=== PATIENT | female | born 1985 | race Caucasian/White ===

== ENCOUNTER → 2023-03-20 | Emergency (ER) | payer OTHER ==
[~2023-03-20] MED LIST: ACETAMINOPHEN 500 MG TAB ONE; NA CHLORIDE 0.9% 1,000 ML ONE; ONDANSETRON 4 MG/2 ML VIAL ONE
[2023-03-20 07:23] LABS: Urine Bacteria <20 /HPF (<20); Urine Bilirubin NEGATIVE (Negative); Urine Blood Trace (Negative); Urine Clarity Turbid (Clear); Urine Color Light-Yellow (Yellow); Urine Glucose NEGATIVE (Negative); Urine Mucus Slight /HPF (None Seen); Urine Protein TRACE (Negative); Urine Urobilinogen Normal (Normal)
[2023-03-20 07:40] LABS: Absolute Lymphocytes (CBC) 0.8 K/uL (0.7-4.9); Hematocrit 35.7 % (36.0-45.0); Lymphocytes % 9.9 % (15.3-44.8); MCV 90.5 fL (80-100); MPV 8.6 fL (7.6-11.3); Platelets 176 thou/uL (152-406); RBC Red Blood Cell Count 3.95 M/uL (3.86-4.86)
[2023-03-20 07:47] LABS: SARS-CoV-2 Antigen Rapid Res Negative (Negative)
[2023-03-20 07:51] LABS: Protime INR 1.16
[2023-03-20 08:01] LABS: Albumin 3.5 g/dL (3.4-5.0); Bilirubin Total 0.3 mg/dL (0.2-1.0); Potassium 3.5 mEq/L (3.5-5.1); Protein, Total 7.8 g/dL (6.4-8.2)
--- NOTE | 2023-03-20 08:37 | RAD REPORT ---
EXAM DESCRIPTION: CTAbdomen Pelvis W Contrast - 03/20/2023 8:28 am CLINICAL HISTORY: Abdominal pain. ABD PAIN COMPARISON: No comparisons TECHNIQUE: Biphasic CT imaging of the abdomen and pelvis was performed with 100 ml non-ionic IV cont rast. All CT scans are performed using dose optimization technique as appropriate and may include automated exposure control or mA/KV adjustment according to patient size. FINDINGS: The lung bases are clear. The liver, spleen, pancreas, adrenal glands and kidneys are within normal limits. No bowel obstruction, free air, free fluid or abscess. The appendix is normal. No evidence of signi ficant lymphadenopathy. 3 cm left ovarian follicle. No suspicious bony findings. IMPRESSION: No acute intra-abdominal or pelvic finding.
[2023-03-20 08:39] LABS: C.diff Antigen/Toxin Ag neg : Tox neg (NEG : NEG)
--- NOTE | 2023-03-20 08:44 | RAD REPORT ---
EXAM DESCRIPTION: RAD - Chest Single View - 03/20/2023 8:35 am CLINICAL HISTORY: FEVER Chest pain. COMPARISON: No comparisons FINDINGS: Portable technique limits examination quality. The lungs are grossly clear. The heart is normal in size. No displaced fractures. IMPRESSION: No acute intrathoracic process suspected.
--- NOTE | 2023-03-20 09:13 | EDPHYS ---
Physician Documentation [facility] Name: Adeel Marshall Age: 37 yrs Sex: Female : 1985 Arrival Date: 03/20/2023 Time: 06:27 Bed 6 Private MD: ED Physician Angelo Bear HPI: 03/20 07:03 This 37 yrs old Female presents to ER via EMS with complaints of Nausea, vomiting, rt diarrhea, fever. 07:03 Patient with HIV on monotherapy antivirals as well as Bactrim presents to the ED with rt nausea, vomiting, diarrhea starting at 515. It is nonbloody, nonbilious, denies any abdominal pain. She did have a fever up to 101, denies other acute complaints, symptoms are moderate severity, no other aggravating alleviating factors. 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 - Social history:: Smoking status: Patient reports the use of cigarette tobacco products, 1-2 cigarettes a day, Reported history of juuling and/or vaping. - Family history:: not pertinent. ROS: 07:03 Cardiovascular: Negative for chest pain, palpitations, and edema, Respiratory: Negative rt for shortness of breath, cough, wheezing, and pleuritic chest pain, MS/Extremity: Negative for injury and deformity, Skin: Negative for injury, rash, and discoloration, Neuro: Negative for headache, weakness, numbness, tingling, and seizure, Psych: Negative for depression, anxiety, suicide ideation, homicidal ideation, and hallucinations, 07:03 Constitutional: Positive for fever, Negative for malaise, 07:03 Abdomen/GI: Positive for nausea, vomiting, and diarrhea, Negative for abdominal pain, Exam: 07:03 Constitutional: This is a well developed, well nourished patient who is awake, alert, rt and in no acute distress. Head/Face: Normocephalic, atraumatic. Chest/axilla: Normal chest wall appearance and motion. Nontender with no deformity. No lesions are appreciated. Cardiovascular: Regular rate and rhythm with a normal S1 and S2. No gallops, murmurs, or rubs. Normal PMI, no JVD. No pulse deficits. Respiratory: Lungs have equal breath sounds bilaterally, clear to auscultation and percussion. No rales, rhonchi or wheezes noted. No increased work of breathing, no retractions or nasal flaring. Abdomen/GI: Soft, non-tender, with normal bowel sounds. No distension or tympany. No guarding or rebound. No evidence of tenderness throughout. Skin: Warm, dry with normal turgor. Normal color with no rashes, no lesions, and no evidence of cellulitis. MS/ Extremity: Pulses equal, no cyanosis. Neurovascular intact. Full, normal range of motion. Neuro: Awake and alert, GCS 15, oriented to person, place, time, and situation. Cranial nerves II-XII grossly intact. Motor strength 5/5 in all extremities. Sensory grossly intact. Cerebellar exam normal. Normal gait. Psych: Awake, alert, with orientation to person, place and time. Behavior, mood, and affect are within normal limits. Vital Signs: 06:36 BP 138 / 92; Pulse 105; Resp 16; Temp 100.5(O); Pulse Ox 100% on R/A; Weight 61.23 kg km8 (R); Height 5 ft. 5 in. (R); Pain 8/10; 08:52 Pulse 94; ec2 09:15 Pulse 96; Resp 18; Pulse Ox 100% ; ap3 06:36 Body Mass Index 22.46 (61.23 kg, 165.1 cm) 8 06:36 Pain Scale: Adult km8 Sree Coma Score: 06:47 Eye Response: spontaneous(4). Motor Response: obeys commands(6). Verbal Response: km8 oriented(5). Total: 15. MDM: 06:39 Patient medically screened. rt 07:29 ED course: Patient with HIV arrives today for gastroenteritis symptoms, septic workup ec2 ordered, plan is to follow-up lab tests, reassess the patient. Possible admit versus discharge per signout, currently favoring viral process however will reconsider pending workup.. 07:29 ED course: Patient meets SIRS criteria with a fever and tachycardia noted. Urine is ec2 pertinent for WBCs and some leuk esterase noted however patient with no marked urinary complaints, will defer antibiotic therapy as I do not find this to be the source of her complaint today.. 07:40 Data reviewed: vital signs. ED course: EKG independently reviewed and interpreted by ec2 me, shows normal sinus rhythm, rate of 100, no acute ST segment elevations, nonconcerning intervals.. 07:48 ED course: CBC is reassuring, lactic within normal ranges.. ec2 08:53 ED course: Chest x-ray shows no acute intrathoracic process. C. difficile screen ec2 negative, no leukocytes noted on fecal leukocyte stain. CT of the abdomen pelvis shows no acute process. CBC is unremarkable. Metabolic profile is reassuring. . 09:12 ED course: On reassessment patient with improving vital signs, patient is tolerating ec2 water without issue. Will discharge home with prescription for antiemetic, suspect viral infection causing her symptoms. Return precautions given. 03/20 06:47 Order name: Blood Culture Adult (2) rt 03/20 06:47 Order name: CBC with Diff; Complete Time: 07:47 rt 03/20 06:47 Order name: CMP; Complete Time: 08:26 rt 03/20 06:47 Order name: Lactate w/ 2H reflex if indic.; Complete Time: 07:47 rt 03/20 06:47 Order name: Protime (+inr); Complete Time: 07:57 rt 03/20 06:47 Order name: Ptt, Activated; Complete Time: 07:57 rt 03/20 06:47 Order name: Urinalysis w/ reflexes; Complete Time: 07:28 rt 03/20 06:47 Order name: PREGU; Complete Time: 07:28 rt 03/20 06:47 Order name: CDIFF; Complete Time: 08:51 rt 03/20 06:47 Order name: Fecal Leukocyte Stain; Complete Time: 08:51 rt 03/20 06:47 Order name: Ova And Parasites rt 03/20 06:47 Order name: Rotavirus Antigen; Complete Time: 07:57 rt 03/20 06:47 Order name: Stool Culture rt 03/20 06:47 Order name: Influenza Screen (a \T\ B); Complete Time: 07:57 rt 03/20 06:47 Order name: SARS RAPID; Complete Time: 07:57 rt 03/20 07:28 Order name: Urine Culture EDMS 03/20 06:47 Order name: Chest Single View XRAY; Complete Time: 08:51 rt 03/20 07:47 Order name: CT Abd/Pelvis - IV Contrast Only; Complete Time: 08:51 ec2 03/20 06:47 Order name: EKG; Complete Time: 06:48 rt 03/20 06:47 Order name: Accucheck; Complete Time: 09:16 rt 03/20 06:47 Order name: Cardiac monitoring; Complete Time: 06:49 rt 03/20 06:47 Order name: EKG - Nurse/Tech; Complete Time: 07:48 rt 03/20 06:47 Order name: IV Saline Lock - Large Bore; Complete Time: 07:22 rt 03/20 06:47 Order name: Labs collected and sent; Complete Time: 07:22 rt 03/20 06:47 Order name: O2 Per Protocol; Complete Time: 06:48 rt 03/20 06:47 Order name: O2 Sat Monitoring; Complete Time: 06:48 rt 03/20 06:47 Order name: Vital Signs; Complete Time: 07:22 rt Administered Medications: 07:49 Drug: Acetaminophen PO 1000 mg PO once Route: PO; ap3 09:31 Follow up: Response: No adverse reaction ap3 07:49 Drug: NS 0.9% IV 1000 ml IV at 1 bolus Per protocol; 1000 mL bolus Route: IV; Rate: 1 ap3 bolus; Site: right antecubital; 09:31 Follow up: IV Status: Completed infusion; IV Intake: 1000ml ap3 07:58 Drug: Ondansetron IVP 4 mg IVP once; over 2 minutes Route: IVP; Site: right antecubital;ap3 09:30 Follow up: Response: No adverse reaction; Nausea is decreased ap3 Disposition Summary: 03/20/23 09:13 Discharge Ordered Notes: Location: Home ec2 Condition: Stable ec2 Diagnosis - Viral infection, unspecified ec2 Followup: ec2 - With: Private Physician - When: - Reason: Re-evaluation by your physician Discharge Instructions: - Discharge Summary Sheet ec2 - Viral Illness, Adult ec2 Forms: - Medication Reconciliation Form ec2 - Thank You Letter ec2 - Antibiotic Education ec2 - Prescription Opioid Use ec2 - Patient Portal Instructions ec2 - Leadership Thank You Letter ec2 Prescriptions: - Compazine 10 mg Oral Tablet - take 1 tablet ORAL route every 8 hours As needed; 20 tablet; Refills: 0, ec2 Product Selection Permitted Signatures: Dispatcher [employer] January Whitmore RN RN ap3 Nazario Kerns MD MD rt Angelo Bear MD MD ec2 Pooja Astudillo RN RN km8 Corrections: (The following items were deleted from the chart) 06:42 06:38 Allergies: Bactrim; km8 km8
--- NOTE | 2023-03-20 09:13 | ER ---
Nurse's Notes [facility] Name: Adeel Marshall Age: 37 yrs Sex: Female : 1985 Arrival Date: 03/20/2023 Time: 06:27 Bed 6 Private MD: Diagnosis: Viral infection, unspecified Presentation: 03/20 06:36 Chief complaint: Patient states: woke up at 0500 with vomiting, diarrhea, and fever; pt km8 has hx of HIV and PTSD. Coronavirus screen: Client denies travel out of the [place] in the last 14 days. Ebola Screen: No symptoms or risks identified at this time. Initial Sepsis Screen: Does the patient meet any 2 criteria? HR > 90 bpm. No. Patient's initial sepsis screen is negative. Does the patient have a suspected source of infection? No. Patient's initial sepsis screen is negative. Risk Assessment: Do you want to hurt yourself or someone else? Patient reports no desire to harm self or others. Onset of symptoms was March 20, 2023 at 05:00. 06:36 Method Of Arrival: EMS km8 06:36 Acuity: MISHA 3 km8 Triage Assessment: 06:38 General: Appears in no apparent distress. comfortable, Behavior is calm, cooperative, km8 appropriate for age. Pain: Complains of pain in generalized Pain currently is 8 out of 10 on a pain scale. EENT: No signs and/or symptoms were reported regarding the EENT system. Neuro: Level of Consciousness is awake, alert, obeys commands, Oriented to person, place, time, situation. Cardiovascular: Capillary refill < 3 seconds Patient's skin is warm and dry. Respiratory: Airway is patent Respiratory effort is even, unlabored, Respiratory pattern is regular, symmetrical. GI: Reports diarrhea, nausea, vomiting. : No signs and/or symptoms were reported regarding the genitourinary system. Derm: No signs and/or symptoms reported regarding the dermatologic system. Skin is intact, is healthy with good turgor, Skin is dry, Skin is pink, warm \T\ dry. normal, Skin temperature is warm. Musculoskeletal: No signs and/or symptoms reported regarding the musculoskeletal system. Range of motion: intact in all extremities. 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 - Social history:: Smoking status: Patient reports the use of cigarette tobacco products, 1-2 cigarettes a day, Reported history of juuling and/or vaping. - Family history:: not pertinent. Screenin:47 [facility] ED Fall Risk Assessment (Adult) History of falling in the last 3 months, km8 including since admission No falls in past 3 months (0 pts) Confusion or Disorientation No (0 pts) Intoxicated or Sedated No (0 pts) Impaired Gait No (0 pts) Mobility Assist Device Used No (0 pt) Altered Elimination No (0 pt) Score/Fall Risk Level 0 - 2 = Low Risk Oriented to surroundings, Maintained a safe environment, Educated pt \T\ family on fall prevention, incl call for assistance when getting out of bed, Assessed \T\ reinforced patient's understanding of fall precautions. Abuse screen: Denies threats or abuse. Denies injuries from another. Nutritional screening: No deficits noted. Tuberculosis screening: No symptoms or risk factors identified. Assessment: 06:47 General: see triage notes/ assessment. km8 07:54 General: Appears in no apparent distress. Behavior is calm, cooperative, appropriate ap3 for age. Neuro: Level of Consciousness is awake, alert, obeys commands, Oriented to person, place, time, situation. Cardiovascular: Patient's skin is warm and dry. Respiratory: Airway is patent Respiratory effort is even, unlabored, Respiratory pattern is regular, symmetrical. 07:54 GI: Reports nausea. ap3 07:55 Reassessment: received VO from provider for 4mg Zofran IV due to patient reporting ap3 nausea . 09:16 Reassessment: Patient states feeling better. Patient states symptoms have improved. ap3 09:38 Reassessment: patient awaiting transportation prior to departure. ap3 Vital Signs: 06:36 BP 138 / 92; Pulse 105; Resp 16; Temp 100.5(O); Pulse Ox 100% on R/A; Weight 61.23 kg km8 (R); Height 5 ft. 5 in. (R); Pain 8/10; 08:52 Pulse 94; ec2 09:15 Pulse 96; Resp 18; Pulse Ox 100% ; ap3 06:36 Body Mass Index 22.46 (61.23 kg, 165.1 cm) km8 06:36 Pain Scale: Adult km8 [place] Coma Score: 06:47 Eye Response: spontaneous(4). Motor Response: obeys commands(6). Verbal Response: km8 oriented(5). Total: 15. ED Course: 06:28 Patient arrived in ED. km8 06:38 Triage completed. km8 06:38 Arm band placed on right wrist. km8 06:39 Nazario Kerns MD is Attending Physician. rt 06:47 Patient has correct armband on for positive identification. Bed in low position. Call km8 light in reach. Side rails up X 1. cardiac monitor technician on. Pulse ox on. NIBP on. Door closed. Noise minimized. Lights dimmed. 06:47 No provider procedures requiring assistance completed. Patient maintains SpO2 km8 saturation greater than 95% on room air. 07:00 Inserted saline lock: 20 gauge in right antecubital area, using aseptic technique. km8 Blood collected. 07:11 Attending Physician role handed off by Nazario Kerns MD ec2 07:11 Angelo Bear MD is Attending Physician. ec2 07:48 EKG done, by ED staff, reviewed by Angelo Bear MD. em1 08:29 CT Abd/Pelvis - IV Contrast Only In Process Unspecified. EDMS 08:37 Chest Single View XRAY In Process Unspecified. EDMS 08:43 Santa Colunga, RN is Primary Nurse. ph 09:31 Provided Education on: discharge instructions. ap3 09:31 IV discontinued, intact, bleeding controlled, No redness/swelling at site. Pressure ap3 dressing applied. Administered Medications: 07:49 Drug: Acetaminophen PO 1000 mg PO once Route: PO; ap3 09:31 Follow up: Response: No adverse reaction ap3 07:49 Drug: NS 0.9% IV 1000 ml IV at 1 bolus Per protocol; 1000 mL bolus Route: IV; Rate: 1 ap3 bolus; Site: right antecubital; 09:31 Follow up: IV Status: Completed infusion; IV Intake: 1000ml ap3 07:58 Drug: Ondansetron IVP 4 mg IVP once; over 2 minutes Route: IVP; Site: right antecubital;ap3 09:30 Follow up: Response: No adverse reaction; Nausea is decreased ap3 Medication: 06:47 VIS not applicable for this client. km8 Intake: 09:31 IV: 1000ml; Total: 1000ml. ap3 Outcome: 09:13 Discharge ordered by MD. ec2 09:30 Discharged to home ambulatory, ap3 09:30 Condition: good 09:30 Discharge instructions given to patient, Instructed on discharge instructions, follow up and referral plans. medication usage, Demonstrated understanding of instructions, follow-up care, medications, Prescriptions given X 1, 09:55 Patient left the ED. ph Signatures: Dispatcher [employer] Ken Covarrubias em1 Santa Colunga RN RN January Montoya RN RN ap3 Nazario Kerns MD MD rt Angelo Bear MD MD ec2 Pooja Astudillo RN RN km8 Corrections: (The following items were deleted from the chart) 06:42 06:38 Allergies: Bactrim; km8 km8
[2023-03-20 11:19] VITALS: BP 138/92; TEMP 100.5; O2SAT 100
--- NOTE | 2023-03-22 12:27 | EKG ---
Test Date: 2023-03-20 Test Time: 07:34:41 Network Technical Analyst: ANNA MEASUREMENT RESULTS: Intervals: Rate: 100 IL: 114 QRSD: 64 QT: 348 QTc: 448 [place]: P: 79 [place]: 114 QRS: 55 T: 51 INTERPRETIVE STATEMENTS: Normal sinus rhythm Nonspecific T wave abnormality Abnormal ECG No previous ECG available for comparison Electronically Signed On 03-22-23 12:20:57 ADMINISTRATION PROFESSIONAL by Anthony Romero
== END ==
LOC: ER 06:27
DX: B34.9 Viral infection, unspecified (principal); Z21 Asymptomatic human immunodeficiency virus [HIV] infection status; Z11.52 Encounter for screening for COVID-19; Z72.0 Tobacco use
CPT/HCPCS: 96361; 93005; 87040 ×2; 87088; 87045; 85025; 81001; 87086; 36415; 89055; 87177; 81025; 85610; 87046; 83605; 85730; 87209; 87077 ×2; 87186 ×2; 87324; 80053; 87425; 87804 ×2; 74177; 71045; 96374; 99285; 87811; Q9967; J2405; J7030

== ENCOUNTER → 2023-03-26 | Emergency (ER) | payer OTHER ==
[~2023-03-26] MED LIST changes: -ACETAMINOPHEN 500 MG TAB ONE
--- OUTSIDE RECORDS SUMMARY | 2023-03-26 00:12 | XMS REPORT | Continuity of Care Document ---
Author Name Unknown Address [address] [facility] [address] [place] [address] [facility] thconnect Address [address] [facility]. [address] [place] [address] Support Name Relationship Address Phone Lata Kenny Sibling Unknown [phone] [address] [place] [address] NO, OTHER SA [address] [place] [address] RUTH JALLOH [address] [facility] [place] [address] Unavailable P [address] [facility] [address] [place] [address] [phone] Healthcare Proxy, PLEASE STO P UPDATING!!! O PLEASE DO NOT MODIFY PLEASE DO NOT MODIFY Billing Purposes, Primary Caregiver, PLEASE STOP UPDATING!!! O PLEASE DO NOT MODIFY PLEASE DO NOT MODIFY Billing Purposes, Marcial Sampson Unknown Unavailable Adeel Del Toro D O [address] [place] [address] Unavailable Legal Guardian, None O [address] [facility] [address] [place] [phone] Lata Del Toro O [address] [place] [address] Unavailable Responsible Provider, Not Ye t Assigned O Unknown Unavailable Marcial Sequeira V [address] [place] [address] [phone] Alysia Nicholson V [address] [place] [id number] [phone] none3 O Unknown Unavailable None2 O Unknown Unavailable None1 O Unknown Unavailable (Legal Guardian), Shama O [address] [place] [address] Unavailable Joel Barnes V [address] [place] [address], [place] [address] [phone] Legal Guardian, PLEASE STOP UPDATING!!!! O PLEASE DO NOT MODIFY PLEASE DO NOT MODIFY Billing Purposes, Emergency Contact O PLEASE DO NOT MODIFY PLEASE DO NOT MODIFY Billing Purposes, Unavailable Care Team Providers Care Frame Stripper Name Role Phone [email or web address] Attending Clinician Unavailable [email or web address] Attending Clinician Unavailable Margareth Martinez Attending Clinician UnaHermes Guy Attending Clinician UnavailJoel Mckinely Attending Clinician [phone] Tacho Shay Attending Clinician Unavailable Alysia Nicholson Attending Clinician [phone] Wes Lino Attending Clinician Unavailable Tia Reeves Attending Clinician [phone] Dat Trujillo MD Attending Clinician Karol Baer LCSW Attending Clinician Arlene Thompson Attending Clinician Unavailable Bruce Barnes Attending Clinician Unavailable Pati Sapp Attending Clinician Unavailjosh Cazares MedAdherenceLuba Attending Clinician U farrukh Paredes MedAdherence,, Ella Attending Clinician Un available Jennifer HOUSE, Janett Vance Attending Clinician Unavailab Juma STARKS, Felisa Batista Attending Clinician + Yifan Bess MD Attending Clinician Karol Baer Attending Clinician [phone] Dori Thomas Attending Clinician UnavailDomo Stanton Attending Clinician Unavailable Madelyn Joseph Attending Clinician UnavailJohn Meier Attending Clinician Unavailable Jennifer Portillo Attending Clinician Unavailable Maximus Mai Attending Clinicia n Unavailable Karen Smith Attending Clinician Unavailable Desktop, [facility] [facility] Attending Clinician Enrike Rabago Attending Clinician [phone] Ed Resendez Attending Clinician [phone] Provider, [facility] Attending Maurizio Calixto Attending Clinician Unavailable Kvng Nichole Attending Clinician Unavailable Dat Whitfield Attending Clinician [phone] Mai Hurst Attending Clinician Unavailable Parvin Dutta Attending Clinician [phone] Dia Jackson Attending Clinician UnavailConnie Welch Attending Clinician Unavailab Bridget Hernandez Attending Clinician [phone] Lynne Boogie Attending Clinician Unavailable Lisa Esparza Attending Clinician Unavailable Rosaline Valencia Attending Clinician [phone] Ilana Pisano Attending Clinician Unavaila Wes Garcia Attending Clinician Unavailable Margo Bolanos Attending Clinician Unavailab Any Black Attending Clinician Unavailable Jenifer Morrison Attending Clinician Unavailable Jihan Vargas Attending Clinician Unavailabl Shantal Anne Attending Clinician Unavailable Marcial Sequeira Attending Clinician [phone] Álvaro Cruz Attending Clinician Unavailable Rebecca Anglin Attending Clinician Unavailable Ronda Vivar Attending Clinician Unavailable Paulie Burroughs Attending Clinician Unavailable Ana Romero Attending Clinician Unavailable Danette Giordano Attending Clinician Unavailab Sophie Allen Attending Clinician Unavailabl e Physician, No Primary or Family Admitting Clinic [place] Unavailable Margareth Martinez Admitting Clinician Unav ailable Alysia Nicholson MD Unavailable Dat Trujillo MD Unavailable [phone] Marcial Christie Unavailable [phone] Sophie Villa MA Unavailable Unavailable Payers Payer Name Policy Type Policy Number Effective Date Expira tion Date Source Nazario White 0- 100% P [id number] 2022 1 00:00:00 2022 00:00:00 Nazario White 0- 100% S [id number] 2022 1 00:00:00 2023 00:00:00 Nazario White 0- 100% O [id number] Nazario White 0- 100% P [id number] 2022 6 00:00:00 [facility] [id number] 2008 00:00:00 [facility] [id number] 2019 00:00:00 Nazario White 0- 100% 11 [id number] 1 00:00:00 2019 00:00:00 [facility] Nazario White 0- 100% CI [id number] 00:00:00 2019 00:00:00 [facility] Problems Condition Name Condition Details Condition Category Status Onset Date Resolution Date Last Treatment Date Treating Clinician Comments Source Proteinuri a Condition Active 2020-03 00:00: 00 2021-02-13 11:03:52 [facility] Prediabete s Condition Active 2020-03 00:00: 00 2021-02-13 11:03:52 Alys[facility] Nicholson [facility] Seborrheic dermatitis Condition Active 2020-03 00:00: 00 2021-02-13 11:00:19 Dat Trujillo [facility] Oral pharyngeal candidiasi s Condition Active 2020-03 00:00: 00 2021-02-13 11:00:19 Dat Trujillo [facility] Anemia Condition Active 2018-03 00:00: 00 2021-02-13 11:00:20 [facility] Nicholson [facility] BMI 22.0-22.9 Condition Active 2018-03 00:00: 00 2021-02-13 11:00:20 [facility]lys[facility] Nicholson [facility] Elevation of levels of liver transamina se levels Condition Active 2018-03 00:00: 00 2021-02-13 11:00:20 Dat Trujillo [facility] Anxiety Condition Active 2018-03 00:00: 00 2021-02-13 11:00:20 [facility] Nicholson [facility] PTSD Condition Active 2018-03 00:00: 00 2021-02-13 11:00:20 [facility] Nicholson [facility] Molluscum contagiosu m Condition Active 2018-03 00:00: 00 2021-02-13 11:00:20 Alysia Nicholson [facility] Health care maintenanc e Condition Active 2018-03 00:00: 00 2021-02-13 11:00:20 [facility] Nicholson [facility] Trichomoni asis Condition Active 07-07 00:00: 00 2021-02-13 11:00:20 Marcial Sequeira [facility] Underweigh t Condition Active 12-02 00:00: 00 2021-02-13 11:00:20 Marcial Sequeira [facility] HIV infection Condition Active 11-17 00:00: 00 2021-02-13 11:00:19 Sophie Villa [facility] No known active problems No known active problems Disease [facility] History of Past Illness Condition Name Condition Details Condition Category Status Onset Date Resolution Date Last Treatment Date Treating Clinician Comments Source Screening for tuberculos is Condition Inactiv e 2020-03 00:00: 00 2021-02-13 00:00:00 2021-02-13 11:03:52 Alysia Nicholson [facility] Std screening Condition Inactiv e 2020-03 00:00: 00 2021-02-13 00:00:00 2021-02-13 11:03:52 Alysia Nicholson [facility] AIDS Condition Inactiv e 12-02 00:00: 00 2019-01-19 00:00:00 2019-01-19 14:14:11 Alysia Nicholson [facility] Immunizati on update Condition Inactiv e 12-02 00:00: 00 2019-01-19 00:00:00 2019-01-19 14:14:11 Alysia Nicholson [facility] Pre-proced ural laboratory examinatio n Condition Inactiv e 11-17 00:00: 00 2019-01-19 00:00:00 2019-01-19 14:14:11 Alysia Nicholson [facility] Allergies, Adverse Reactions, Alerts Allergy Name Allergy Type Status Severity Reaction(s) Onset Date Inactive Date Treating Clinician Comments Source No Known Allergie s DA Active U 2022-03- 00:00: 00 [facility] No Known Allergie s DA Active U 2-14 00:00: 00 [facility] No Known Allergie s DA Active U 2-14 00:00: 00 [facility] No Known Allergie s DA Active U 10-25 00:00: 00 [facility] No Known Allergie s DA Active U 10-25 00:00: 00 [facility] NO KNOWN ALLERGIE S Drug Class Active [facility] Social History Social Habit Start Date Stop Date Quantity Comments Source Exposure to SARS-CoV-2 (event) Not sure [facility] History of tobacco use Cigarette Smoker [facility] History SDOH Alcohol Binge [facility] drug use 2022-05-05 14:10:04 2022-05-05 14:10:04 Previously [facility] alcohol use 2022-05-05 14:10:04 2022-05-05 14:10:04 Currently [facility] PHQ2 Questionairre Score 2022-05-05 14:10:04 2022-05-05 14:10:04 [facility] is there any chance that you could be ? 2022-05-05 14:10:04 2022-05-05 14:10:04 No [facility] social history reviewed E&M 2022-05-05 14:10:04 2022-05-05 14:10:04 reviewed today [facility] social history E&M 2022-05-05 14:10:04 2022-05-05 14:10:04 Single. Spouse/Partner/Sig nificant Other: [facility] Lynnette Matthew/Maria Del Carmen Ruelas/Leia Sequeira/Jenifer Somers'Maxx/Daron Barnes. Entire family in [place]. Currently single. Two children in high school (17, 16), live with their dad. Not homeless. Born in [facility]. City: [place]. State: [place]. Lives alone in apartmentNot employed. Unemployed. Highest education level: some college. Receives compensation from . Completed some collegeSex at : Female. Sexual orientation: Heterosexual. Gender identity: Female. Gender of partner(s): Male. Age of first sexual intercourse: 19. Sexually Active: No. [facility] if the patient is using/has used a vaping item, Current, Former, Never Used, Not asked 2022-05-05 14:10:04 2022-05-05 14:10:04 No [facility] Transportation Insecurity (In the past year, have you or someone you in your household had to go without) 2022-05-04 13:31:16 2022-05-04 13:31:16 Yes [facility] Rent/Mortgage Payment Insecurity (In the past year, have you or someone you in your household had to go without) 2022-05-04 13:31:16 2022-05-04 13:31:16 [id number] [facility] time of call 2021-07-15 11:31:18 2021-07-15 11:31:18 07/15/2021 11:34 AM [facility] passive cigarette smoke exposure 2021-02-13 10:29:27 2021-02-13 10:29:27 No [facility] sexual orientation 2021-02-13 10:29:27 2021-02-13 10:29:27 Heterosexual [facility] tobacco use (cigarettes, cigar, chew, pipe) 2021-02-13 10:29:27 2021-02-13 10:29:27 Currently [facility] drug use, illicit, drug of choice 2021-02-13 10:29:27 2021-02-13 10:29:27 cocaine [facility] family support 2021-02-10 10:34:08 2021-02-10 10:34:08 Entire family in [place]. Currently single. Two children in high school (17, 16), live with their dad. [facility] home/family situation, assessment 2021-02-10 10:34:08 2021-02-10 10:34:08 Lives alone in apartment [facility] albumin, serum 2021-01-06 14:03:00 2021-01-06 14:03:00 3.7 g/dL [facility] Cigarettes smoked current (pack per day) - Reported 2019-01-04 00:00:00 2019-01-04 00:00:00 [facility] Alcohol intake 2019-01-04 00:00:00 2019-01-04 00:00:00 [facility] History SDOH Alcohol Frequency 2019-01-04 00:00:00 2019-01-04 00:00:00 2 [facility] History SDOH Alcohol Std Drinks 2019-01-04 00:00:00 2019-01-04 00:00:00 1 [facility] Occupation #1 2017-12-02 15:30:48 2017-12-02 15:30:48 Unemployed [facility] alcohol use, frequency 2017-12-02 15:30:48 2017-12-02 15:30:48 holidays/special occasions only [facility] sex at 2017-12-02 15:30:48 2017-12-02 15:30:48 F [facility] patient considered to be homeless 2017-12-02 15:30:48 2017-12-02 15:30:48 [id number] [facility] Smoking Status Start Date Stop Date Source Ex-smoker (finding) 2022-05-05 14:10:04 14:10:04 [facility] Occasional tobacco smoker (finding) 2021-02-13 10:29:27 [facility] Never smoked tobacco (finding) [facility] Medications Ordered Medication Name Filled Medication Name Start Date Stop Date Current Medication? 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 1 Take 1 tablet by mouth once a day [facility] (NYSTATIN) 788469 UNIT/ML SUSP 2020-03 00:00: 00 Yes Dat Trujillo MD 5 Take 5 ml by mouth four times a day swish and swallow qid [facility] (KETOCONAZO LE) 2 % CREA 2020-03 00:00: 00 Yes Dat Trujillo MD 1 Apply 1 a small amount to affected area twice a day [facility] iohexol (OMNIPAQUE 350 BULK-100 mL) injection 100 mL 09-20 14:15: 00 09-20 13:54 :00 No 100mL 100 mL, Intravenou s, ONCE, 1 dose, Marely 09/21/19 at 0915, Routine [facility] azithromyci n (ZITHROMAX) tablet 1,000 mg 09-20 13:00: 00 09-20 12:00 :00 No 1000mg 1,000 mg, Oral, ONCE, 1 dose, Marely 09/21/19 at 0800, EMILEE
Re ason for Anti-Infec tive: Documented Infection< br>Documen ally Infection Site: Abdominal< br>Duratio n of Therapy: 7 days [facility] cefTRIAXone (ROCEPHIN) 1,000 mg in NaCl 0.9% (NS) 50 mL MINI-BAG 09-20 13:00: 00 09-20 12:57 :00 No 1000mg 1,000 mg, IV Piggyback, ONCE, 1 dose, Marely 09/21/19 at 0800, 50 mL
Reas on for Anti-Infec tive: Documented Infection< br>Documen ally Infection Site: Abdominal< br>Duratio n of Therapy: 7 days [facility] NaCl 0.9% (NS) bolus infusion 1,000 mL 09-20 11:45: 00 09-20 11:59 :00 No 1000mL at 999 mL/hr, 1,000 mL, IV Infusion, ONCE, 1 dose, Marely 09/21/19 at 0645, STAT [facility] acetaminoph en (TYLENOL) tablet 1,000 mg 09-20 11:30: 00 09-20 10:51 :00 No 1000mg 1,000 mg, Oral, ONCE, 1 dose, Marely 09/21/19 at 0630, EMILEE [facility] cefpodoxime 100 mg tablet 09-20 00:00: 00 Yes [id number] 100mg Take 1 tablet by mouth 2 (two) times daily. [facility] cefpodoxime 100 mg tablet 09-20 00:00: 00 Yes [id number] 100mg Take 1 tablet by mouth 2 (two) times daily. [facility] cefpodoxime 100 mg tablet 09-20 00:00: 00 Yes [id number] 100mg Take 1 tablet by mouth 2 (two) times daily. [facility] cefpodoxime 100 mg tablet 09-20 00:00: 09-20 00:00 :00 No [id number] 100mg Take 1 tablet by mouth 2 (two) times daily for 10 days. [facility] cefpodoxime 100 mg tablet 09-20 00:00: 09-20 00:00 :00 No [id number] 100mg Take 1 tablet by mouth 2 (two) times daily. 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 1{Table t} 1xD Take 1 tablet by mouth once a day [facility] predniSONE 20 mg tablet 07-11 00:00: 00 Yes [id number] Take 2 tablets (40 mg) daily for next 5 days [facility] predniSONE 20 mg tablet 07-11 00:00: 00 Yes [id number] Take 2 tablets (40 mg) daily for next 5 days [facility] predniSONE 20 mg tablet 07-11 00:00: 00 Yes [id number] Take 2 tablets (40 mg) daily for next 5 days [facility] BACTRIM DS (SULFAMETHO XAZOLE-TRIM ETHOPRIM) 800-160 MG TABS 12-02 00:00: 00 01-19 00:00 :00 No 1 tab by mouth once dialy [facility] (AZITHROMYC IN) 600 MG TABS 12-02 00:00: 00 01-19 00:00 :00 No 2 tabs by mouth once per week [facility] BIKTARVY (BICTEGRAVI R-EMTRICITA B-TENOFOV) 50-200-25 MG TABS 9-20 00:00: 00 01-19 00:00 :00 No Take 1 tab by mouth daily [facility] ondansetron (ZOFRAN ODT) 4 mg disintegrat ing tablet 08-25 00:00: 00 Yes 4mg Take 1 tablet by mouth every 8 (eight) hours as needed for Nausea and Vomiting (N/V). [facility] dicyclomine (BENTYL) 20 mg tablet 08-25 00:00: 00 Yes 20mg Take 1 tablet by mouth 4 (four) times daily. [facility] ondansetron (ZOFRAN ODT) 4 mg disintegrat ing tablet 08-25 00:00: 00 Yes 4mg Take 1 tablet by mouth every 8 (eight) hours as needed for Nausea and Vomiting (N/V). [facility] dicyclomine (BENTYL) 20 mg tablet 08-25 00:00: 00 Yes 20mg Take 1 tablet by mouth 4 (four) times daily. [facility] ondansetron (ZOFRAN ODT) 4 mg disintegrat ing tablet 08-25 00:00: 00 Yes 4mg Take 1 tablet by mouth every 8 (eight) hours as needed for Nausea and Vomiting (N/V). [facility] dicyclomine (BENTYL) 20 mg tablet 08-25 00:00: 00 Yes 20mg Take 1 tablet by mouth 4 (four) times daily. [facility] (HALOPERIDO L) 5 MG TABS 03-15 00:00: 00 Yes 1 Take 1 tablet by mouth twice a day [facility] (BENZTROPIN E MESYLATE) 1 MG TABS 03-15 00:00: 00 Yes 1 Take 1 tablet by mouth twice a day [facility] Vital Signs Vital Name Observation Time Observation Value Comments S sadaf Systolic blood pressure 2019-09-21 13:00:00 121 mm[Hg] [facility] Diastolic blood pressure 2019-09-21 13:00:00 72 mm[Hg] [facility] Heart rate 2019-09-21 13:00:00 87 /min [facility] Respiratory rate 2019-09-21 13:00:00 16 /min [facility] Oxygen saturation in Arterial blood by Pulse oximetry 2019-09-21 13:00:00 100 /min [facility] Body temperature 2019-09-21 12:28:00 37.72 Maria R [facility] Body weight 2019-09-21 10:24:00 61.199 kg [facility] BMI 2019-09-21 10:24:00 23.90 kg/m2 [facility] Systolic blood pressure 2019-09-21 13:00:00 121 mm[Hg] [facility] Diastolic blood pressure 2019-09-21 13:00:00 72 mm[Hg] [facility] Heart rate 2019-09-21 13:00:00 87 /min [facility] Respiratory rate 2019-09-21 13:00:00 16 /min [facility] Oxygen saturation in Arterial blood by Pulse oximetry 2019-09-21 13:00:00 100 /min [facility] Body temperature 2019-09-21 12:28:00 37.72 Maria R [facility] Body weight 2019-09-21 10:24:00 61.199 kg [facility] BMI 2019-09-21 10:24:00 23.90 kg/m2 [facility] Diastolic blood pressure 2022-05-05 14:10:04 80 mm[Hg] [facility] Systolic blood pressure 2022-05-05 14:10:04 113 mm[Hg] [facility] pulse rate 2022-05-05 14:10:04 85 /min [facility] temperature site 2022-05-05 14:10:04 oral [facility] temperature E&M 2022-05-05 14:10:04 98.7 [degF] [facility] BMI (body mass index) percentile 2022-05-05 14:10:04 n/a [facility] Body Mass Index (Ratio) 2022-05-05 14:10:04 257.65 kg/m2 [facility] weight E&M 2022-05-05 14:10:04 1449.25 [lb_av] [facility] weight in kilograms E&M 2022-05-05 14:10:04 658[facility] height in centimeters E&M 2022-05-05 14:10:04 160.02 cm [facility] oxygen saturation, oximetry 2021-02-13 10:29:27 98 /min [facility] blood pressure, diastolic 2021-02-13 10:29:27 77 mm[Hg] [facility] blood pressure, systolic 2021-02-13 10:29:27 110 mm[Hg] [facility] pulse rate 2021-02-13 10:29:27 79 /min [facility] 2021-02-13 10:29:27 oral [facility] temperature E&M 2021-02-13 10:29:27 98.1 [degF] [facility] weight E&M 2021-02-13 10:29:27 108 [lb_av] [facility] weight in kilograms E&M 2021-02-13 10:29:27 49.09 [facility] height in centimeters E&M 2021-02-13 10:29:27 160.02 cm [facility] 2021-02-13 10:29:27 [facility] BMI (body mass index) percentile 2021-02-13 10:29:27 n/a [facility] Body Mass Index (Ratio) 2021-02-13 10:29:27 19.20 kg/m2 [facility] height in centimeters E&M 2021-01-06 12:56:39 160.02 cm [facility] BMI (body mass index) percentile 2021-01-06 12:56:39 n/a [facility] Body Mass Index (Ratio) 2021-01-06 12:56:39 18.76 kg/m2 [facility] blood pressure, diastolic 2021-01-06 12:56:39 69 mm[Hg] [facility] blood pressure, systolic 2021-01-06 12:56:39 104 mm[Hg] [facility] respiratory rate E&M 2021-01-06 12:56:39 12 /min [facility] temperature E&M 2021-01-06 12:56:39 98.0 [degF] [facility] pulse rate 2021-01-06 12:56:39 94 /min [facility] oxygen saturation, oximetry 2021-01-06 12:56:39 96 /min [facility] weight E&M 2021-01-06 12:56:39 105.50 [lb_av] [facility] weight in kilograms E&M 2021-01-06 12:56:39 47.95 kg [facility] oxygen saturation, oximetry 2019-02-07 10:42:04 99 /min [facility] blood pressure, diastolic 2019-02-07 10:42:04 74 mm[Hg] [facility] blood pressure, systolic 2019-02-07 10:42:04 109 mm[Hg] [facility] respiratory rate E&M 2019-02-07 10:42:04 18 /min [facility] pulse rate 2019-02-07 10:42:04 81 /min [facility] temperature E&M 2019-02-07 10:42:04 97.7 [degF] [facility] weight E&M 2019-02-07 10:42:04 127.13 [lb_av] L [facility] weight in kilograms E&M 2019-02-07 10:42:04 57.79 kg [facility] height in centimeters E&M 2019-02-07 10:42:04 160.02 cm [facility] Body Mass Index (Ratio) 2019-02-07 10:42:04 22.60 kg/m2 [facility] BMI (body mass index) percentile 2019-02-07 10:42:04 n/a [facility] temperature site 2019-02-07 10:42:04 oral [facility] temperature site 2019-02-07 10:42:04 oral [facility] oxygen saturation, oximetry 2019-01-19 13:34:44 98 /min [facility], diastolic 2019-01-19 13:34:44 67 mm[Hg] [facility] blood pressure, systolic 2019-01-19 13:34:44 108 mm[Hg] [facility] respiratory rate E&M 2019-01-19 13:34:44 14 /min [facility] pulse rate 2019-01-19 13:34:44 98 /min [facility] E&M 2019-01-19 13:34:44 97.7 [degF] [facility] weight E&M 2019-01-19 13:34:44 121 [lb_av] [facility] weight in kilograms E&M 2019-01-19 13:34:44 [facility] height in centimeters E&M 2019-01-19 13:34:44 160.02 [facility] BMI (body mass index) percentile 2019-01-19 13:34:44 n/a [facility] Body Mass Index (Ratio) 2019-01-19 13:34:44 21.51 kg[facility]m2 [facility] 2019-01-19 13:34:44 oral [facility] temperature site 2019-01-19 13:34:44 oral [facility] oxygen saturation, oximetry 2017-12-16 12:33:44 98 /min [facility] blood pressure, diastolic 2017-12-16 12:33:44 71 mm[Hg] [facility], systolic 2017-12-16 12:33:44 103 mm[Hg] [facility] respiratory rate E&M 2017-12-16 12:33:44 14 /min [facility] pulse rate 2017-12-16 12:33:44 63 /min [facility] temperature E&M 2017-12-16 12:33:44 97.7 [degF] [facility] 2017-12-16 12:33:44 118 [lb_av] [facility] weight in kilograms E&M 2017-12-16 12:33:44 53.64 [facility] height in centimeters E&M 2017-12-16 12:33:44 160.02 cm [facility] Body Mass Index (Ratio) 2017-12-16 12:33:44 20.98 kg/m2 [facility] temperature site 2017-12-16 12:33:44 [facility] 2017-12-16 12:33:44 oral [facility] height in centimeters E&M 2017-12-02 15:30:48 160.02 cm [facility] oxygen saturation, oximetry 2017-12-02 15:30:48 95 /min [facility] blood pressure, diastolic 2017-12-02 15:30:48 72 mm[Hg] [facility] blood pressure, systolic 2017-12-02 15:30:48 111 mm[Hg] [facility] respiratory rate E&M 2017-12-02 15:30:48 12 /min [facility] pulse rate 2017-12-02 15:30:48 105 /min [facility] E&M 2017-12-02 15:30:48 100.2 [degF] [facility] weight E&M 2017-12-02 15:30:48 112 [lb_av] [facility] weight in kilograms E&M 2017-12-02 15:30:48 50.91 kg [facility] Body Mass Index (Ratio) 2017-12-02 15:30:48 19.91 kg/m2 [facility] 2017-12-02 15:30:48 oral [facility] site 2017-12-02 15:30:48 oral [facility] Procedures Procedure Date / Time Performed Performing Clinician Source Outreach - Phone contact with (or on behalf of) Client 2022-05-07 16:19:02 Domo Barros [facility] Outreach - Client Specific Case Conference 2022-05-07 16:19:02 Domo Barros [facility] Primary Care SLW Meeting W Other CM 2022-05-07 10:48:03 Bridget Jaquez [facility] Outreach - Client Specific Case Conference 2022-05-06 13:30:44 Domo Barros [facility] RW Case Management 2022-05-05 15:09:17 Joel Barnes [facility] Education/Supportive Counseling 2021-07-16 16:17:39 Maurizio Abdul [facility] Outreach - Client Specific Case Conference 2021-02-24 15:35:42 KalyandustinDomo mosqueda [facility] Primary Care Service Linkage 2021-02-19 14:39:12 Bridget Jaquez [facility] Health Education/Supportive Counseling 2021-02-17 19:31:25 Maurizio Abdul [facility] Prescription Assistance (HIV - URGENT) 2021-02-13 11:03:13 Alysia Nicholson Replaced by [facility] Assessment - Patient Account Specialist 2021-02-10 11:13:38 [facility] Psych[facility] 30 ([phone] min - [phone] (with patient and/or family member) 2021-02-10 11:13:38 [facility] Primary Care SLW Meeting W Other CM 2021-01-16 12:41:00 Gisele [facility] Primary Care Service Linkage 2021-01-16 [facility] with [facility] M[facility] 2021-01-16 12:30:34 Lyric Thomas [facility] Primary Care - Service Planning Comprehensive 2021-01-16 10:47:22 Dori Thomas [facility] Primary Care - Assesment-Comprehensive [facility] 2021-01-16 10:47:22 Dori Thomas [facility] Primary Care Medical Case Management 2021-01-16 10:47:22 Dori Thomas [facility] Outreach - Phone contact with (or on behalf of) Client 2021-01-10 13:39:28 Tacho Shay [facility] Outreach - Client Specific Case Conference 2021-01-10 13:06:31 Tacho Shay [facility] Prescription Assistance (HIV - URGENT) 2021-01-08 16:00:30 Dat Trujillo [facility] Education/Supportive Counseling 2021-01-08 15:31:04 Maurizio Abdul [facility] Integrated Behavioral Health Assessment (IBH) 2021-01-07 11:58:41 Ronnie [facility] Vision 2021-01-06 15:59:59 RonnieDat [facility] Venipuncture 2021-01-06 13:24:21 Ronnie [facility] Education/Supportive Counseling 2021-01-03 11:41:54 Maurizio Abdul [facility] [id number] 2020-04-28 00:00:00 CIEEV [facility] [id number] 2020-04-28 00:00:00 CIEEV [facility] [id number] 2020-04-28 00:00:00 CIEEV [facility] [id number] 2020-04-28 00:00:00 CIEEV [facility] [id number] 2020-04-28 00:00:[address] [facility] [address] ABDOMEN PELVIS W CONTRAST 2019-09-21 14:01:34 Yifan Bess [facility] POCT TEST 2019-09-21 11:15:00 Yifan Bess [facility] COMP. METABOLIC PANEL (17795) 2019-09-21 11:01:00 Yifan Bess [facility] CBC WITH DIFFERENTIAL 2019-09-21 11:01:00 Yifan Bess [facility] URINALYSIS 2019-09-21 11:01:00 Yifan Bess [facility] LACTIC ACID WHOLE BLOOD 2019-09-21 11:01:00 Dex Bess [facility] COVID-19 (ID NOW RAPID TESTING) 2019-09-21 11:01:00 Yifan Bess [facility] Primary Care Medical Case Management 2019-06-21 07:53:56 Jennifer Portillo [facility] Care Medical Case Management 2019-06-20 11:01:26 Dori Thomas [facility] Outreach - Client Specific Case Conference 2019-06-20 10:47:57 Domo Barros [facility] Outreach - Client Specific Case Conference 2019-06-16 13:59:47 KalyanannaJayaio Larry [facility] Primary Care Medical Case Management 2019-06-16 10:35:57 Dori Thomas [facility] Primary Care Service Linkage 2019-06-12 14:41:12 Dominguez Jaime, Maximus Wagner [facility] Primary Care Medical Case Management 2019-06-02 11:06:01 Jennifer Portillo [facility] Outreach - Client Specific Case Conference 2019-06-01 14:13:12 FiorellaJayaio Larry [facility] y Health Health Education/Supportive Counseling 2019-02-22 16:00:51 Maurizio Abdul [facility] Prescription Assistance (HIV - URGENT) 2019-02-07 11:16:50 Alysia Nicholson [facility] Primary Care Service Linkage 2019-01-30 14:47:28 Bridget Jaquez [facility] Outreach - Face to Face in Office 2019-01-30 09:39:46 Lynne Boogie [facility] Primary Care - Assesment-Brief - SLW 2019-01-26 14:05:41 Bridget Jaquez [facility] Primary Care Service Linkage 2019-01-26 14:05:22 Bridget Jaquez [facility] Outreach - Client - Specific Supervision 2019-01-25 10:03:21 Lynne Boogie [facility] Outreach - Face to Face in Office 2019-01-25 09:59:39 Lynne Boogie [facility] Outreach - Client Specific Case Conference 2019-01-23 15:43:07 Domo Barros [facility] Outreach - Face to Face in Office 2019-01-23 15:26:22 [facility] Medical Case Management 2019-01-23 15:19:30 Jennifer Portillo [facility] Health Vision 2019-01-19 14:13:05 Alysia Nicholson [facility] Outreach - Phone contact with (or on behalf of) Client 2018-12-12 13:04:00 Lynne Boogie [facility] Outreach - Client - Specific Supervision 2018-12-09 17:58:28 Lynne Boogie [facility] Primary Care Medical Case Management 2018-12-07 17:22:14 Any Henley [facility] Primary [facility] Medical Case Management 2018-09-02 19:14:05 Any Henley [facility] Outreach - Face to Face in Office 2018-09-02 11:33:01 Lynne Boogie [facility] Outreach - Phone contact with (or on behalf of) Client 2018-08-30 11:30:24 Franko Boogiemicaela Juarez [facility] Outreach - Client - Specific Supervision 2018-08-25 09:20:27 [facility] Primary [facility] Medical Case Management 2018-08-22 17:42:11 Any Henley [facility] Outreach - Phone contact with (or on behalf of) Client 2018-08-22 15:00:36 Keagan [facility] Outreach - Client - Specific Supervision 2018-08-10 14:28:16 Keagan Lynne Juarez [facility] Outreach - Client - Specific Supervision 2018-08-03 11:24:44 Keagan [facility] Outreach - Face to Face in the Field 2018-07-27 10:01:03 Keagan Lynne [facility] Medical Case Management 2018-07-19 16:52:52 Any Henley [facility] Outreach - Phone contact with (or on behalf of) Client 2018-07-19 09:26:29 Keagan Lynne [facility] Outreach - Phone contact with (or on behalf of) Client 2018-07-18 10:55:05 Rebecca Anglin [facility] Medical Case Management 2018-07-15 16:21:12 Any Henley [facility] Outreach - Face to Face in Office 2018-07-15 12:49:09 [facility] Outreach - Phone contact with (or on behalf of) Client 2018-07-14 09:55:18 Keagan Lynne [facility] Primary Care Medical Case Management 2018-07-13 17:37:31 Any Henley [facility] Health Education/Supportive Counseling 2018-07-13 11:27:14 Maurizio Abdul [facility] Outreach - Client - Specific Supervision 2018-07-12 11:23:57 KeagnaLynne [facility] Outreach - Face to Face in Office 2018-07-11 11:01:23 KeaganLynne [facility] Health Education/Supportive Counseling 2018-07-06 12:06:14 Maurizio Abdul [facility] Outreach - Client - Specific Supervision 2018-07-04 10:16:23 BoogieLynne [facility] Outreach - Face to Face in the Field 2018-06-27 09:03:19 [facility]Lynne [facility] Outreach - Face to Face in the Field 2018-06-27 08:59:27 KeaganLynne [facility] Primary Care Medical Case Management 2017-12-16 16:26:55 Lory [facility] Primary Care Medical Case Management 2017-12-10 14:07:39 Lory [facility] Primary Care Medical Case Management 2017-12-09 16:32:33 Lory [facility] Primary Care - Service Planning Comprehensive 2017-12-03 13:49:58 Lory [facility] Primary Care - Assesment-Comprehensive CCM-MCM 2017-12-03 13:49:58 Lory [facility] Primary Care Medical Case Management 2017-12-03 13:46:36 Zoraidarosalie [facility] Primary Care Service Linkage 2017-12-03 12:58:09 Bridget Jaquez [facility] Warden 2017-12-02 19:51:51 Matthew Sequeira [facility] Primary Care Medical Case Management 2017-12-02 17:23:58 [facility] Vision 2017-12-02 16:43:31 Marcial Sequeira [facility] Prescription Assistance (HIV - URGENT) 2017-12-02 16:42:09 Marcial Sequeira [facility] Health Education/Supportive Counseling 2017-11-18 09:54:43 Provider, Public Health Services [facility] Venipuncture 2017-11-17 12:37:34 Marcial Sequeira [facility] Encounters Start Date/Time End Date/Time Encounter Type Admission Type Attending Clinicians Care Facility Care Department Encounter ID Source 2022-08-18 14:27:04 Outpatient [email or web address].dcupit [facility] [id number] [facility] 2022-08-07 11:51:02 Outpatient lc.waupit [facility] [id number] [facility] 2022-08-01 13:55:02 Outpatient lc.waupit [facility] [id number] [facility] 2022-07-29 16:47:02 Outpatient lc.waupit [facility] [id number] [facility] 2022-05-27 15:15:05 Outpatient lc.waupit [facility] [id number] [facility] 2022-05-06 15:25:03 Outpatient lc.waupit [facility] [id number] [facility] 2022-05-04 15:59:03 Outpatient lc.waupit [facility] [id number] [facility] 2022-04-30 16:33:02 Outpatient lc.rjoseph [facility] [id number] [facility] 2022-04-02 14:25:04 Outpatient lc.rjoseph [facility] [id number] [facility] 2022-02-04 08:41:04 Outpatient lc.rjoseph [facility] [id number] [facility] 2022-02-03 11:47:03 Outpatient lc.rjoseph [facility] [id number] [facility] 2022-01-09 10:59:04 Outpatient lc.rjoseph [facility] [id number] [facility] 2022-01-08 14:13:03 Outpatient lc.rjoseph [facility] [id number] [facility] 2022-01-02 13:57:05 Outpatient lc.rjoseph [facility] [id number] [facility] 2021-01-10 05:40:42 Emergency [facility] [id number] [facility] 2020-04-28 12:10:00 Inpatient HCACL SYED [id number] [facility] 2023-03-08 13:46:00 2023-03-09 12:47:00 Inpatient Margareth Quiñonez HCAMN TELE [id number] [facility] 2023-03-06 23:57:00 2023-03-06 23:57:00 Outpatient Hermes Lockhart HCACL LABO [id number] [facility] 2022-05-05 00:00:00 2022-05-06 00:00:00 In-person encounter Joel Barnes, Barbra Dyer [facility] Adult Medicine [id number] [facility] [employer] [facility] 2021-02-13 00:00:00 2021-02-13 00:00:00 Office Visit Alysia Nicholson Armando [facility] Encounter/ [id number] [employer] [employer] [facility] 2021-02-13 00:00:00 2021-02-13 00:00:00 In-person encounter Alysia Nicholson Armando Hernandez, Jesus A Cupit, Nadia Bhatt [facility] Adult Medicine [id number] [facility] 2021-02-10 00:00:00 2021-02-10 00:00:00 Office Visit Tia Reeves [facility] Encounter/ [id number] [employer] 2021-02-10 00:00:00 2021-02-10 00:00:00 In-person encounter Tia Reeves [facility] Behavioral Health [id number] [facility] 2021-01-06 00:00:00 2021-01-06 00:00:00 In-person encounter Dat Trujillo, Arlene Barnes, Ilana Almazan Heather Dela Torre, Credeliza [facility] Adult Medicine [id number] [employer] [employer] [facility] 2021-01-06 00:00:00 2021-01-06 00:00:00 Office Visit Dat Trujillo John Callis, Erron [facility] Encounter/ [id number] [facility] 2020-01-03 00:00:00 2020-01-03 00:00:00 Office Visit Pati Sapp [facility] Encounter/ [id number] [facility] 2020-01-02 00:00:00 2020-01-02 00:00:00 Office Visit Pati Sapp [facility] Encounter/ [id number] [facility] 2019-11-13 00:00:00 2019-11-13 00:00:00 Office Visit Alysia Nicholson [facility], Luba [facility] Encounter/ [id number] [facility] 2019-10-11 00:00:00 2019-10-11 00:00:00 Office Visit Alysia Nicholson [facility], Luba Paredes [facility],, Ella [facility] Encounter/ [id number] [facility] 2019-09-25 00:00:00 2019-09-25 00:00:00 [facility] [id number] [facility] 2019-09-25 00:00:00 2019-09-25 00:00:00 Letter (Out) Jennifer [facility] [id number] 2019-09-22 00:00:00 2019-09-22 00:00:00 Telephone Felisa Garcia [facility] [id number] [facility] 2019-09-22 00:00:00 2019-09-22 00:00:00 Telephone Felisa Garcia [facility] [id number] 2019-09-21 05:28:01 2019-09-21 11:38:00 [facility] [id number] [facility] 2019-09-21 05:28:2019-09-21 11:38:00 [facility] [id number] 2019-06-20 00:00:00 2019-06-20 00:00:00 Office Visit Karol Baer [facility] Encounter/ [id number] [facility] 2019-06-20 00:00:00 2019-06-20 00:00:00 Office Visit Dori Thomas [facility] Encounter/ [id number] [facility] 2019-06-20 00:00:00 2019-06-20 00:00:00 Office Visit Domo Barros [facility] Encounter/ [id number] [facility] 2019-06-19 00:00:00 2019-06-19 00:00:00 Office Visit Madelyn Joseph [facility] Encounter/ [id number] [facility] 2019-06-19 00:00:00 2019-06-19 00:00:00 Office Visit John Sandoval [facility] Encounter/ [id number] [facility] 2019-06-16 00:00:00 2019-06-16 00:00:00 Office Visit Domo Barros [facility] Encounter/ [id number] [facility] 2019-06-16 00:00:00 2019-06-16 00:00:00 Office Visit Dori Thomas [facility] Encounter/ [id number] [facility] 2019-06-16 00:00:00 2019-06-16 00:00:00 Office Visit Portillo Jennifer [facility] Encounter/ [id number] [facility] 2019-06-14 00:00:00 2019-06-14 00:00:00 Office Visit Alysia Nicholson [facility] Encounter/ [id number] [facility] 2019-06-14 00:00:00 2019-06-14 00:00:00 Office Visit Alysia Nicholson [facility] Encounter/ [id number] [facility] 2019-05-26 00:00:00 2019-05-26 00:00:00 Office Visit Maximus Mai [facility] Encounter/ [id number] [facility] 2019-05-26 00:00:00 2019-05-26 00:00:00 Office Visit Jennifer Portillo [facility] Encounter/ [id number] [facility] 2019-05-26 00:00:00 2019-05-26 00:00:00 Office Visit Domo Barros [facility] Encounter/ [id number] [facility] 2019-05-26 00:00:00 2019-05-26 00:00:00 Office Visit Domo Barros [facility] Encounter/ [id number] [facility] 2019-03-13 00:00:00 2019-03-13 00:00:00 Office Visit Karen Smith [facility] Encounter/ [id number] [facility] 2019-02-28 00:00:00 2019-02-28 00:00:00 [place] Visit [place] [facility] [place] Abdul Omaida [facility] Encounter/ [id number] [facility] 2019-02-22 00:00:00 2019-02-22 00:00:00 Office Visit Provider, Public Health Services Maurizio [facility] Encounter/ [id number] [facility] 2019-02-15 00:00:00 2019-02-15 00:00:00 Office Visit Kvng Nichole [facility] Encounter/ [id number] [facility] 2019-02-14 00:00:00 2019-02-14 00:00:00 Office Visit Dat Whitfield [facility] Encounter/ [id number] [facility] 2019-02-13 00:00:00 2019-02-13 00:00:00 Office Visit Mai Hurst [facility] Encounter/ [id number] [facility] 2019-02-07 00:00:00 2019-02-07 00:00:00 Office Visit Karen Simth [facility] Encounter/ [id number] [facility] 2019-02-07 00:00:00 2019-02-07 00:00:00 Office Visit Karen Smith [facility] Encounter/ [id number] [facility] 2019-02-07 00:00:00 2019-02-07 00:00:00 Office Visit Alysia Nicholson [facility] Encounter/ [id number] [facility] 2019-02-07 00:00:00 2019-02-07 00:00:00 Office Visit Alysia Nicholson Rolanda McIntyre, Shakira Suazo, Enrike Crouch, Madelyn Campbell [facility] Encounter/ [id number] [facility] 2019-02-07 00:00:00 2019-02-07 00:00:00 In-person encounter Alysia Nicholson Rolanda McIntyre, Shakira Suazo, Morlin Smith, Robert Hernandez Ray, Madelyn Campbell [facility] Adult Medicine [id number] [facility] 2019-02-03 00:00:00 2019-02-03 00:00:00 Office Visit Connie Willingham [facility] Encounter/ [id number] [facility] 2019-01-30 00:00:00 2019-01-30 00:00:00 Office Visit Ike Baerher [facility] Encounter/ [id number] [facility] 2019-01-30 00:00:00 2019-01-30 00:00:00 Office Visit Gisele Bridget [facility] Encounter/ [id number] [facility] 2019-01-24 00:00:00 2019-01-24 00:00:00 Office Visit Ike Baerher [facility] Encounter/ [id number] [facility] 2019-01-24 00:00:00 2019-01-24 00:00:00 Office Visit Lynne Boogie [facility] Encounter/ [id number] [facility] 2019-01-24 00:00:00 2019-01-24 00:00:00 Office Visit Lisa Esparza [facility] Encounter/ [id number] [facility] 2019-01-23 00:00:00 2019-01-23 00:00:00 Office Visit Lynne Boogie [facility] Encounter/ [id number] [facility] 2019-01-23 00:00:00 2019-01-23 00:00:00 Office Visit Domo Barros [facility] Encounter/ [id number] [facility] 2019-01-19 00:00:00 2019-01-23 00:00:00 In-person encounter Alysia Nicholson Tamika Diego-Molin a, Dunia Razo, Armando [facility] Adult Medicine [id number] [facility] 2019-01-20 00:00:00 2019-01-20 00:00:00 Office Visit Lynne Boogie [facility] Encounter/ [id number] [facility] 2019-01-19 00:00:00 2019-01-19 00:00:00 Office Visit Provider, Public Health Services Maurizio Abdul [facility] Encounter/ [id number] [facility] 2019-01-19 00:00:00 2019-01-19 00:00:00 Office Visit Bridget Jaquez [facility] Encounter/ [id number] [facility] 2019-01-19 00:00:00 2019-01-19 00:00:00 Office Visit Bridget Jaquez [facility] Encounter/ [id number] [facility] 2019-01-19 00:00:00 2019-01-19 00:00:00 Office Visit Alysia Nicholson [facility] Encounter/ [id number] [facility] 2019-01-19 00:00:00 2019-01-19 00:00:00 Office Visit Alysia Nicholson [facility] Encounter/ [id number] [facility] 2019-01-19 00:00:00 2019-01-19 00:00:00 Office Visit Lynne Boogie [facility] Encounter/ [id number] [facility] 2019-01-19 00:00:00 2019-01-19 00:00:00 Office Visit Alysia Nicholson [facility] Encounter/ [id number] [facility] 2019-01-19 00:00:00 2019-01-19 00:00:00 Office Visit Alysia Nicholson Tamika Diego-Molin a, Dunia Razo, Armando [facility] Encounter/ [id number] [facility] 2019-01-18 00:00:00 2019-01-18 00:00:00 Office Visit Jennifer Portillo [facility] Encounter/ [id number] [facility] 2018-12-15 00:00:00 2018-12-15 00:00:00 Office Visit Margo Bolanos [facility] Encounter/ [id number] [facility] 2018-12-08 00:00:00 2018-12-08 00:00:00 Office Visit Lynne Boogie [facility] Encounter/ [id number] [facility] 2018-12-08 00:00:2018-12-08 00:00:00 Office Visit Karol Baer [facility] Encounter/ [id number] [facility] 2018-12-06 00:00:00 2018-12-06 00:00:00 Office Visit Boogie, Lynne [facility] Encounter/ [id number] [facility] 2018-12-06 00:00:00 2018-12-06 00:00:00 Office Visit Zoraidanelly Any [facility] Encounter/ [id number] [facility] 2018-09-02 00:00:00 2018-09-02 00:00:00 Office Visit Zoraidanelly Any [facility] Encounter/ [id number] [facility] 2018-08-31 00:00:00 2018-08-31 00:00:00 Office Visit Lynne Boogie [facility] Encounter/ [id number] [facility] 2018-08-30 00:00:00 2018-08-30 00:00:00 Office Visit Lynne Boogie [facility] Encounter/ [id number] [facility] 2018-08-25 00:00:00 2018-08-25 00:00:00 Office Visit [facility] Encounter/ [id number] [facility] 2018-08-25 00:00:00 2018-08-25 00:00:00 Office Visit Lynne Boogie [facility] Encounter/ [id number] [facility] 2018-08-22 00:00:00 2018-08-22 00:00:00 Office Visit ZoraidaAny villegas [facility] Encounter/ [id number] [facility] 2018-08-22 00:00:00 2018-08-22 00:00:00 Office Visit Lynne Boogie [facility] Encounter/ [id number] [facility] 2018-08-01 00:00:00 2018-08-01 00:00:00 Office Visit Lynne Boogie [facility] Encounter/ [id number] [facility] 2018-08-01 00:00:00 2018-08-01 00:00:00 Office Visit Karol Baer Laura [facility] Encounter/ [id number] [facility] 2018-07-25 00:00:00 2018-07-25 00:00:00 Office Visit Lynne Boogie [facility] Encounter/ [id number] [facility] 2018-07-22 00:00:00 2018-07-22 00:00:00 Office Visit Lynne Boogie [facility] Encounter/ [id number] [facility] 2018-07-19 00:00:00 2018-07-19 00:00:00 Office Visit Any Henley [facility] Encounter/ [id number] [facility] 2018-07-19 00:00:00 2018-07-19 00:00:00 Office Visit Lynne Boogie [facility] Encounter/ [id number] [facility] 2018-07-19 00:00:00 2018-07-19 00:00:00 Office Visit Any Henley Nohemi Gutierrez, Jihan Cohen [facility] Encounter/ [id number] [facility] 2018-07-15 00:00:00 2018-07-15 00:00:00 Office Visit Any Henley [facility] Encounter/ [id number] [facility] 2018-07-13 00:00:00 2018-07-13 00:00:00 Office Visit Lynne Boogie [facility] Encounter/ [id number] [facility] 2018-07-13 00:00:00 2018-07-13 00:00:00 Office Visit Any Henley [facility] Encounter/ [id number] [facility] 2018-07-13 00:00:00 2018-07-13 00:00:00 Office Visit Provider, Public Health Services Maurizio Abdul [facility] Encounter/ [id number] [facility] 2018-07-12 00:00:00 2018-07-12 00:00:00 Office Visit Shantal Belcher [facility] Encounter/ [id number] [facility] 2018-07-11 00:00:00 2018-07-11 00:00:00 Office Visit Karol Baer [facility] Encounter/ [id number] [facility] 2018-07-11 00:00:00 2018-07-11 00:00:00 Office Visit Lynne Boogie [facility] Encounter/ [id number] [facility] 2018-07-07 00:00:00 2018-07-07 00:00:00 Office Visit Marcial Sequeira Nohemi [facility] Encounter/ [id number] [facility] 2018-07-07 00:00:00 2018-07-07 00:00:00 Office Visit Lynne Boogie [facility] Encounter/ [id number] [facility] 2018-07-06 00:00:00 2018-07-06 00:00:00 Office Visit Lynne Boogie [facility] Encounter/ [id number] [facility] 2018-07-06 00:00:00 2018-07-06 00:00:00 Office Visit Lynne Boogie [facility] Encounter/ [id number] [facility] 2018-07-06 00:00:00 2018-07-06 00:00:00 Office Visit Provider, Public Health Services Álvaro Cruz [facility] Encounter/ [id number] [facility] 2018-07-06 00:00:00 2018-07-06 00:00:00 Office Visit Provider, Public Health Services Maurizio Abdul [facility] Encounter/ [id number] [facility] 2018-07-05 00:00:00 2018-07-05 00:00:00 Office Visit Marcial Sequeira [facility] Encounter/ [id number] [facility] 2018-07-05 00:00:2018-07-05 00:00:00 Office Visit Marcial Sequeira [facility] Encounter/ [id number] [facility] 2018-07-05 00:00:00 2018-07-05 00:00:00 Office Visit Marcial Sequeira [facility] Encounter/ [id number] [facility] 2018-07-04 00:00:00 2018-07-04 00:00:00 Office Visit Karol Baer [facility] Encounter/ [id number] [facility] 2018-07-04 00:00:00 2018-07-04 00:00:00 Office Visit Lynne Boogie [facility] Encounter/ [id number] [facility] 2018-06-24 00:00:00 2018-06-24 00:00:00 Office Visit Lynne Boogie [facility] Encounter/ [id number] [facility] 2018-06-23 00:00:00 2018-06-23 00:00:00 Office Visit Rebecca Anglin [facility] Encounter/ [id number] [facility] 2018-06-23 00:00:00 2018-06-23 00:00:00 Office Visit Lynne Boogie [facility] Encounter/ [id number] [facility] 2018-04-01 00:00:00 2018-04-01 00:00:00 Office Visit Provider, Public Health Services Maurizio Abdul [facility] Encounter/ [id number] [facility] 2018-03-25 00:00:00 2018-03-25 00:00:00 Office Visit Margo Bolanos [facility] Encounter/ [id number] [facility] 2018-03-25 00:00:00 2018-03-25 00:00:00 Office Visit Marcial Sequeira [facility] Encounter/ [id number] [facility] 2018-02-22 00:00:00 2018-02-22 00:00:00 Office Visit Provider, Public Health Services Maurizio Abdul [facility] Encounter/ [id number] [facility] 2018-02-14 00:00:00 2018-02-14 00:00:00 Office Visit Ronda Vivar [facility] Encounter/ [id number] [facility] 2018-02-11 00:00:00 2018-02-11 00:00:00 Office Visit Paulie Burroughs [facility] Encounter/ [id number] [facility] 2018-02-01 00:00:00 2018-02-01 00:00:00 Office Visit Provider, Public Health Services Maurizio Abdul [facility] Encounter/ [id number] [facility] 2018-01-13 00:00:00 2018-01-13 00:00:00 Office Visit Margo Bolanos [facility] Encounter/ [id number] [facility] 2017-12-16 00:00:00 2017-12-19 00:00:00 In-person encounter Marcial Sequeira Nancy [facility] Adult Medicine [id number] [facility] 2017-12-16 00:00:00 2017-12-16 00:00:00 Office Visit Any Henley [facility] Encounter/ [id number] [facility] 2017-12-16 00:00:00 2017-12-16 00:00:00 Office Visit Marcial Sequeira [facility] Encounter/ [id number] [facility] 2017-12-16 00:00:00 2017-12-16 00:00:00 Office Visit Marcial Sequeira Nancy [facility] Encounter/ [id number] [facility] 2017-12-10 00:00:00 2017-12-10 00:00:[facility] [id number] [facility] 2017-12-10 00:00:00 2017-12-10 00:00:00 Office Visit Margo Bolanos [facility] Encounter/ [id number] [facility] 2017-12-09 00:00:00 2017-12-09 00:00:00 Office Visit Any Henley [facility] Encounter/ [id number] [facility] 2017-12-04 00:00:00 2017-12-04 00:00:00 Office Visit Danette Giordano [facility] Encounter/ [id number] [facility] 2017-12-03 00:00:00 2017-12-03 00:00:00 Office Visit Zoraidajohannerosalie Any [facility] Encounter/ [id number] [facility] 2017-12-03 00:00:00 2017-12-03 00:00:00 Office Visit Marcial Sequeira [facility] Encounter/ [id number] [facility] 2017-12-03 00:00:00 2017-12-03 00:00:00 Office Visit Marcial Sequeira [facility] Encounter/ [id number] [facility] 2017-12-03 00:00:00 2017-12-03 00:00:00 Office Visit Any Henley [facility] Encounter/ [id number] [facility] 2017-12-03 00:00:00 2017-12-03 00:00:00 Office Visit Any Henley [facility] Encounter/ [id number] [facility] 2017-12-03 00:00:00 2017-12-03 00:00:00 Office Visit ZoraidajohanneAny somers [facility] Encounter/ [id number] [facility] 2017-12-03 00:00:00 2017-12-03 00:00:00 Office Visit Jenifer Morrison [facility] Encounter/ [id number] [facility] 2017-12-03 00:00:00 2017-12-03 00:00:00 Office Visit Bridget Jaquez [facility] Encounter/ [id number] [facility] 2017-12-02 00:00:00 2017-12-02 00:00:00 Office Visit Any Henley [facility] Encounter/ [id number] [facility] 2017-12-02 00:00:00 2017-12-02 00:00:00 [facility] [id number] [facility] 2017-12-02 00:00:00 2017-12-02 00:00:00 Office Visit Marcial Sequeira Nohemi Ortega, Rodolfo Diego-Molin a, [facility] [id number] [facility] 2017-12-02 00:00:00 2017-12-02 00:00:00 In-person encounter Marcial Sequeira Nohemi Ortega, Rodolfo Diego-Molin a, Dunia [facility] Adult Medicine [id number] [facility] 2017-11-30 00:00:00 2017-11-30 00:00:00 Office Visit Margo Bolanos [facility] Encounter/ [id number] [facility] 2017-11-25 00:00:00 2017-11-25 00:00:00 Office Visit Marcial Sequeira Donte [facility] Encounter/ [id number] [facility] 2017-11-18 00:00:00 2017-11-18 00:00:00 [facility] [id number] [facility] 2017-11-17 00:00:00 2017-11-17 00:00:00 Office Visit Marcial Sequeira [facility] Encounter/ [id number] [facility] 2017-11-17 00:00:00 2017-11-17 00:00:00 Office Visit Marcial Sequeira [facility] Encounter/ [id number] [facility] 2017-11-17 00:00:00 2017-11-17 00:00:00 Office Visit Provider, Public Health Services Maurizio Abdul [facility] Encounter/ [id number] [facility] 2017-11-17 00:00:00 2017-11-17 00:00:00 Office Visit Provider, Public Health Services Maurizio Abdul [facility] Encounter/ [id number] [facility] 2017-11-17 00:00:00 2017-11-17 00:00:00 Office Visit Marcial Sequeira Priscilla [facility] Encounter/ [id number] [facility] Results Test Description Test Time Test Comments Results Result Co mments Source LACTIC DEHYDROGENASE(LDH)2023-03-10 15:11:00* Test Item Value Reference Range Interpretation Comme nts LACTIC DEHYDROGENASE(LDH) (t est code = LDH) 183 Units/L 81-234 N CD4 HELPER T-CELL [id number] 15:11:00* Test Item Value Reference Range Interpretation Comme nts IMMATURE GRANULOCYTE # (test code = IG#) 0.00 x10E3/uL 0.0-0.1 Performed At : [facility] [address] [id number] David Capellan MD Ph:[phone] WBC (test code = WBCLC) 4.7 x10E3/uL 3.4-10.8 RBC (test code = RBCLC) 4.05 x10E6/uL 3.77-5.28 HGB (test code = HGBLC) 11.8 g/dL 11.1-15.9 HCT (test code = HCTLC) 37.1 % 34.0-46.6 MCV (test code = MCVLC) 92 fL 79-97 MCH (test code = MCHLC) 29.1 pg 26.6-33.0 MCHC (test code = MCHCLC) 31.8 g/dL 31.5-35.7 RDW (test code = RDWLC) 15.4 % 11.7-15.4 PLT (test code = PLTLC) 174 x10E3/uL 150-450 NEUT % (test code = NT%LC) 86 % Not Estab. LYMPH % (test code = LY%LC) 9 % Not Estab. MONO % (test code = MO%LC) 5 % Not Estab. EOS % (test code = EO%LC) 0 % Not Estab. BASO % (test code = BA%LC) 0 % Not Estab. NEUT # (test code = NT#LC) 4.0 x10E3/uL 1.4-7.0 LYMPH # (test code = LY#LC) 0.4 x10E3/uL 0.7-3.1 A MONO # (test code = MO#LC) 0.3 x10E3/uL 0.1-0.9 EOS # (test code = EO#LC) 0.0 x10E3/uL 0.0-0.4 BASO # (test code = BA#LC) 0.0 x10E3/uL 0.0-0.2 PERCENT CD4 HELPER CELLS (test code = CD4P) 3.3 % 30.8-58.5 A ABSOLUTE CD4+ CELLS (test code = CD4A) 13 /uL [phone] A COMMENT(S) (test code = COMM) IMMATURE GRANULOCYTE % (test code = IG%) 0.0 % Not Estab. COMPREHENSIVE METABOLIC [id number] 02:38:00* Test Item Value Reference Range Interpretation Comme nts SODIUM (test code = NA) 137 mmol/l 134.0-147.0 N POTASSIUM (test code = K) 4.3 mmol/L 3.6-5.2 N CHLORIDE (test code = CL) 105 mmol/l 98.0-107.0 N CARBON DIOXIDE (test code = CO2) 22.3 mmol/l 21.0-33.0 N ANION GAP (test code = GAP) 14.0 0-20 N GLUCOSE (test code = GLU) 120 mg/dl 70.0-110.0 H BLOOD UREA NITROGEN (test code = BUN) 14 mg/dl 7.0-18.0 N GLOMERULAR FILTRATION RATE (test code = GFR) 80 mL/min The Glomerular Filtration Rate is a calculated parameterbased on serum Creatinine, patient age and sex. GFR valuesless than 60 mL/min/1.73 square meters are indicative ofChronic Kidney Disease. Values less than 15 mL/min/1.73square meters indicate Kidney failure. The calculation forGFR is based on the CKD-EPI (202) calculation. This formulais race indifferent and is the recommended formula for GFRby the National Kidney Foundation for Adults.The GFR will not calculate if the sex is unknown or if thepatient's age is <18 years. CREATININE (test code = CREAT) 0.94 mg/dL 0.60-1.30 N ESTIMATED CREAT CLEARANCE (test code = ECRCL) 73 mL/min >30 TOTAL PROTEIN (test code = PROT) 7.3 GM/DL 6.0-8.1 N ALBUMIN (test code = ALB) 2.9 gm/dL 3.2-4.7 L CALCIUM (test code = CA) 8.9 mg/dl 8.0-10.5 N BILIRUBIN TOTAL (test code = BILT) 0.1 mg/dl 0.0-1.0 N SGOT/AST (test code = AST) 20 Units/L 15-37 N SGPT/ALT (test code = ALT) 22 Units/L 12.0-78.0 N ALKALINE PHOSPHATASE TOTAL (test code = ALKP) 52 Units/L 50.0-136.0 N CBC W/AUTO [id number] 01:49:00* Test Item Value Reference Range Interpretation Comme nts WHITE BLOOD CELL (test code = WBC) 5.3 K/mm3 4.5-11.0 N RED BLOOD CELL (test code = RBC) 3.67 M/mm3 3.80-5.20 L HEMOGLOBIN (test code = HGB) 10.8 gm/dL 12.0-16.0 L HEMATOCRIT (test code = HCT) 33.6 % 36.0-48.0 L MEAN CELL VOLUME (test code = MCV) 91.6 UM3 82.0-99.0 N MEAN CELL HGB (test code = MCH) 29.4 UUG 25.5-32.5 N MEAN CELL HGB CONCETRATION (test code = MCHC) 32.1 gm/dL 29.0-35.5 N RED CELL DISTRIBUTION WIDTH (test code = RDW) 15.8 % 11.5-15.0 H RED CELL DISTRIBUTION WIDTH SD (test code = RDW-SD) 53.9 fL 34.8-50.2 H PLATELET COUNT (test code = PLT) 177 K/mm3 150-400 N MEAN PLATELET VOLUME (test c ode = MPV) 10.2 fl 7.4-10.4 N NEUTROPHIL % (test code = NT%) 78.5 % 49.0-76.0 H IMMATURE GRANULOCYTE % (test code = IG%) 0.4 % 0.0-0.4 N LYMPHOCYTE % (test code = LY%) 9.6 % 23.0-38.0 L MONOCYTE % (test code = MO%) 11.3 % 1.0-10.0 H EOSINOPHIL % (test code = EO%) 0.0 % 1.0-5.0 L BASOPHIL % (test code = BA%) 0.2 % 0.0-1.0 N NUCLEATED RBC % (test code = NRBC%) 0.0 % 0.0-0.1 N NEUTROPHIL # (test code = NT#) 4.2 K/mm3 2.4-6.3 N IMMATURE GRANULOCYTE # (test code = IG#) 0.02 x10 3/uL 0.00-0.07 N LYMPHOCYTE # (test code = LY#) 0.5 K/mm3 1.2-4.0 L MONOCYTE # (test code = MO#) 0.6 K/mm3 0.0-0.6 N EOSINOPHIL # (test code = EO#) 0.0 K/MM3 0.0-0.7 N BASOPHIL # (test code = BA#) 0.0 K/mm3 0.0-0.2 N NUCLEATED RBC # (test code = NRBC#) 0.00 X10 3uL 0.00-0.01 N CBC W/AUTO [id number] 04:20:00* Test Item Value Reference Range Interpretation Comme nts WHITE BLOOD CELL (test code = WBC) 4.4 K/mm3 4.5-11.0 L RED BLOOD CELL (test code = RBC) 3.65 M/mm3 3.80-5.20 L HEMOGLOBIN (test code = HGB) 10.7 gm/dL 12.0-16.0 L HEMATOCRIT (test code = HCT) 32.9 % 36.0-48.0 L MEAN CELL VOLUME (test code = MCV) 90.1 UM3 82.0-99.0 N MEAN CELL HGB (test code = MCH) 29.3 UUG 25.5-32.5 N MEAN CELL HGB CONCETRATION (test code = MCHC) 32.5 gm/dL 29.0-35.5 N RED CELL DISTRIBUTION WIDTH (test code = RDW) 15.7 % 11.5-15.0 H RED CELL DISTRIBUTION WIDTH SD (test code = RDW-SD) 51.9 fL 34.8-50.2 H PLATELET COUNT (test code = PLT) 157 K/mm3 150-400 N MEAN PLATELET VOLUME (test c ode = MPV) 11.1 fl 7.4-10.4 H NEUTROPHIL % (test code = NT%) 90.3 % 49.0-76.0 H IMMATURE GRANULOCYTE % (test code = IG%) 0.2 % 0.0-0.4 N LYMPHOCYTE % (test code = LY%) 6.3 % 23.0-38.0 L MONOCYTE % (test code = MO%) 3.2 % 1.0-10.0 N EOSINOPHIL % (test code = EO%) 0.0 % 1.0-5.0 L BASOPHIL % (test code = BA%) 0.0 % 0.0-1.0 N NUCLEATED RBC % (test code = NRBC%) 0.0 % 0.0-0.1 N NEUTROPHIL # (test code = NT#) 4.0 K/mm3 2.4-6.3 N IMMATURE GRANULOCYTE # (test code = IG#) 0.01 x10 3/uL 0.00-0.07 N LYMPHOCYTE # (test code = LY#) 0.3 K/mm3 1.2-4.0 L MONOCYTE # (test code = MO#) 0.1 K/mm3 0.0-0.6 N EOSINOPHIL # (test code = EO#) 0.0 K/MM3 0.0-0.7 N BASOPHIL # (test code = BA#) 0.0 K/mm3 0.0-0.2 N NUCLEATED RBC # (test code = NRBC#) 0.00 X10 3uL 0.00-0.01 N COMPREHENSIVE METABOLIC [id number] 04:17:00* Test Item Value Reference Range Interpretation Comme nts SODIUM (test code = NA) 133 mmol/l 134.0-147.0 L POTASSIUM (test code = K) 3.7 mmol/L 3.6-5.2 N CHLORIDE (test code = CL) 101 mmol/l 98.0-107.0 N CARBON DIOXIDE (test code = CO2) 23.5 mmol/l 21.0-33.0 N ANION GAP (test code = GAP) 12.2 0-20 N GLUCOSE (test code = GLU) 163 mg/dl 70.0-110.0 H BLOOD UREA NITROGEN (test code = BUN) 7 mg/dl 7.0-18.0 N GLOMERULAR FILTRATION RATE (test code = GFR) 92 mL/min The Glomerular Filtration Rate is a calculated parameterbased on serum Creatinine, patient age and sex. GFR valuesless than 60 mL/min/1.73 square meters are indicative ofChronic Kidney Disease. Values less than 15 mL/min/1.73square meters indicate Kidney failure. The calculation forGFR is based on the CKD-EPI (202) calculation. This formulais race indifferent and is the recommended formula for GFRby the National Kidney Foundation for Adults.The GFR will not calculate if the sex is unknown or if thepatient's age is <18 years. CREATININE (test code = CREAT) 0.83 mg/dL 0.60-1.30 N ESTIMATED CREAT CLEARANCE (test code = ECRCL) 83 mL/min >30 TOTAL PROTEIN (test code = PROT) 7.1 GM/DL 6.0-8.1 N ALBUMIN (test code = ALB) 2.8 gm/dL 3.2-4.7 L CALCIUM (test code = CA) 8.4 mg/dl 8.0-10.5 N BILIRUBIN TOTAL (test code = BILT) 0.2 mg/dl 0.0-1.0 N SGOT/AST (test code = AST) 21 Units/L 15-37 N SGPT/ALT (test code = ALT) 18 Units/L 12.0-78.0 N ALKALINE PHOSPHATASE TOTAL (test code = ALKP) 41 Units/L 50.0-136.0 L [id number] 04:29:00* Test Item Value Reference Range Interpretation Comme nts GLUBED (test code = GLUBED) 103 mg/dL 70-110 N COVID 19 Asymptomatic IH [id number] 00:55:00* Test Item Value Reference Range Interpretation Comme nts COVID 19 Asymptomatic IH AG (test code = COVNONPUIAG) NEGATIVE NEGATIVE Negative results should be treated as presumptive and ifinconsistent with clinical signs and symptoms, or necessaryfor patient management, should be tested with an alternativemolecular assay. Negative results do not preclude [id number] and should not be used as the sole basis forpatient management decisions. Negative results should beconsidered in the context of a patient's recent exposures,history, presence of clinical signs and symptoms consistentwith COVID-19. - CT ABD PELVIS [id number] 00:44:00 [facility] : 1985 Sex: F FAX:Hermes Lockhart MD [place]: St: REG Name: ADEEL DEL TORO [facility] : 1985 Age/S: 37/F [address] [facility] Unit: [id number] Loc: E.ERS[address] [place] [address] Phys: [place] [id number] Acct: [id number] Dis Date: Status: REG ER PHONE #: [phone] Exam Date: 03/07/20231 FAX #: [phone] Reason: vomiting, diarrhea, fever EXAMS: CPT CODE: [id number] CT ABD PELVIS W/CONT [id number] EXAM: CT abdomen and pelvis with contrast. LOCATION: H 12 HISTORY: vomiting, diarrhea, fever TECHNIQUE: Enhanced spiral slices were taken from the domes of the diaphragm, through the pubic symphysis. Sagittal and coronal, and where appropriate, MIP reformations were performed. One or more of the following dose reduction techniques were used: Automated exposure control, adjustment of the mA and/or kV according to patient size, and/or utilization of iterative reconstruction technique. Unless otherwise specified, incidental findings do not require dedicated imaging follow-up. FINDINGS: LOWER THORAX: The lung bases are clear. GALLBLADDER: The gallbladder is unremarkable. No pericholecystic fluid or wall thickening is present. LIVER: The liver is of normal, homogeneous density. The intra-and extrahepatic biliary tree is normal. The hepatic and portal veins are patent. PANCREAS: The pancreas is normal.The pancreatic duct is normal in caliber. SPLEEN: Spleen is unremarkable. ADRENAL GLANDS: Adrenal g lands are unremarkable. KIDNEYS/URETERS: The kidneys are unremarkable. No perinephric fluid collections or hydronephrosis is seen. GASTROINTESTINAL: The large and small intestine are normal in caliber. The appendix is normal. PERITONEUM: No lymphadenopathy is found in the abdomen or the pelvis. No free fluid is seen. PELVIS: The pelvic structures are unremarkable. VASCULAR: The aorta is unremarkable. The IVC is normal. PAGE 1 Signed Report (CONTINUED) FAX: Hermes Lockhart MD [place]: St: G Name: ADEEL DEL TORO [facility] : 1985 Age/S: 37/F [address] [facility] Unit: [id number] Loc: [address] Phys: [place] [id number] Acct: [id number] Dis Date: Status: REG ER PHONE#: [phone] Exam Date: 03/07/2023 002 FAX #: [phone] Reason: vomiting, diarrhea, fever EXA MS: CPT CODE: [id number] CT ABD PELVIS W/CONT [id number] (Continued) BONES/SOFT TISSUES: Unremarkable for age. IMPRESSION: Unremarkable exam. Electronically Signed by Stacia Grant on03/07/2023 at 0044 Reported and signed by: Mau Grant M.D. CC: Hermes Lockhart MD Technologist: Margo Benitez Trnscrd Dt/Tm: 03/07/2023 (0044) [email or web address] Orig Print D/T: S: 03/07/2023 (0047 PAGE 2 Signed ReportLACTIC [id number] 23:58:00* Test Item Value Reference Range Interpretation Comme nts LACTIC ACID (test code = LACT) 0.6 mmol/L 0.4-2.0 N HEPATIC FUNCTION PANEL [id number] 23:55:00* Test Item Value Reference Range Interpretation Comme nts TOTAL PROTEIN (test code = PROT) 7.9 GM/DL 6.0-8.1 N ALBUMIN (test code = ALB) 3.4 gm/dL 3.2-4.7 N BILIRUBIN TOTAL (test code = BILT) 0.4 mg/dl 0.0-1.0 N BILIRUBIN DIRECT (test code = BILD) 0.1 mg/dl 0.0-0.3 N SGOT/AST (test code = AST) 25 Units/L 15-37 N SGPT/ALT (test code = ALT) 20 Units/L 12.0-78.0 N ALKALINE PHOSPHATASE TOTAL ( test code = ALKP) 50 Units/L 50.0-136.0 N ABOUT 5 ML OF BLOOD IN EACH OF THE TWO BOTTLES.[id number] 23:55:00* Test Item Value Reference Range Interpretation Comme nts LIPASE (test code = LIP) 47 Units/L 16-77 N ABOUT 5 ML OF BLOOD IN EACH OF THE TWO BOTTLES.BASIC METABOLIC [id number] 23:55:00* Test Item Value Reference Range Interpretation Comme nts SODIUM (test code = NA) 131 mmol/l 134.0-147.0 L POTASSIUM (test code = K) 3.6 mmol/L 3.6-5.2 N CHLORIDE (test code = CL) 96 mmol/l 98.0-107.0 L CARBON DIOXIDE (test code = CO2) 26.3 mmol/l 21.0-33.0 N ANION GAP (test code = GAP) 12.3 0-20 N GLUCOSE (test code = GLU) 97 mg/dl 70.0-110.0 N BLOOD UREA NITROGEN (test code = BUN) 5 mg/dl 7.0-18.0 L GLOMERULAR FILTRATION RATE (test code = GFR) 68 mL/min The Glomerular Filtration Rate is a calculated parameterbased on serum Creatinine, patient age and sex. GFR valuesless than 60 mL/min/1.73 square meters are indicative ofChronic Kidney Disease. Values less than 15 mL/min/1.73square meters indicate Kidney failure. The calculation forGFR is based on the CKD-EPI (2020) calculation. This formulais race indifferent and is the recommended formula for GFRby the National Kidney Foundation for Adults.The GFR will not calculate if the sex is unknown or if thepatient's age is <18 years. CREATININE (test code = CREAT) 1.07 mg/dL 0.60-1.30 N CALCIUM (test code = CA) 8.5 mg/dl 8.0-10.5 N ESTIMATED CREAT CLEARANCE (test code = ECRCL) 64 mL/min >30 ABOUT 5 ML OF BLOOD IN EACH OF THE TWO BOTTLES.DRUGS OF ABUSE SCREEN UR 2023-03-06 23:54:00* Test Item Value Reference Range Interpretation Comments URN COCAINE (test code = COCAURN) POSITIVE NEGATIVE A UNCONFIRMED INIT IAL SCREENING ONLY; SUGGEST ADDITIONALCONFIRMATORY TESTING.Cocaine cut-off concentration: 300 ng/mL URN CANNABINOIDS (test code = CANNABURN) POSITIVE NEGATIVE A UNCONFIRMED INIT IAL SCREENING ONLY; SUGGEST ADDITIONALCONFIRMATORY TESTING.Cannabinoids cut-off concentration: 50 ng/mL URN AMPHETAMINE (test code = AMPHETURN) NEGATIVE NEGATIVE Amphetamine cut- off concentration: 1000 ng/mL URN BARBITURATE (test code = BARBITURN) NEGATIVE NEGATIVE Barbiturate cut- off concentration: 200 ng/mL URN BENZODIAZEPINE (test code = BENZOURN) NEGATIVE NEGATIVE Benzodiazepine c ut-off concentration: 200 ng/mL URN OPIATES (test code = OPIATURN) NEGATIVE NEGATIVE Opiates cut-off concentration: 2000 ng/mL URN PHENCYCLIDINE (PCP) (test code = PHENCURN) POSITIVE NEGATIVE A UNCONFIRMED INIT IAL SCREENING ONLY; SUGGEST ADDITIONALCONFIRMATORY TESTING.Phencyclidine(PCP) cut-off concentration: 25 ng/ml URN METHADONE (test code = METHAURN) NEGATIVE NEGATIVE Methadone cut-o ff concentration: 300 ng/mL WHAT DRUGS HAVE BEEN TAKEN? screenUA RFLX MICR CULT IF [id number] 23:44:00* Test Item Value Reference Range Interpretation Comme nts UA COLOR (test code = COLU) YELLOW UA APPEARANCE (test code = APPU) CLDY UA GLUCOSE DIPSTICK (test code = DGLUU) NORMAL mg/dl NORMAL UA BILIRUBIN DIPSTICK (test code = BILU) NEGATIVE mg/dL NEGATIVE UA KETONE DIPSTICK (test code = KETU) 50 mg/dl mg/dl NEGATIVE A UA SPECIFIC GRAVITY (test code = SGU) 1.005 1.000-1.030 UA BLOOD DIPSTICK (test code = RADHA) 25 Jasen/micL Jasen/micL NEGATIVE A UA PH DIPSTICK (test code = AVIS) 7.0 5.0-9.0 UA PROTEIN DIPSTICK (test code = PROU) 100 mg/dl NEGATIVE A UA UROBILINIOGEN DIPSTICK (test code = URO) 4.0 mg/dl mg/dl NORMAL A UA NITRITE DIPSTICK (test code = SHANICE) NEGATIVE NEGATIVE UA LEUKOCYTE ESTERASE DIPSTICK (test code = LEUU) 500 Joanna/micL Joanna/micL NEGATIVE A UA WBC (test code = WBCU) TNTC WBC/HPF NONE A UA RBC (test code = RBCU) 5-10 RBC/HPF 0-3 A UA EPITHELIAL CELLS (test code = EPIU) 10-15 EPI/HPF 0-3 A UA BACTERIA (test code = BACU) MANY NONE A Indication for culture: Dysuria/FrequencySpecimen Description: CLEAN CATCHUR HCG [id number] 23:44:00* Test Item Value Reference Range Interpretation Comme nts UR HCG QUAL (test code = HCGQLU) NEGATIVE NEGATIVE Indication for culture: Dysuria/FrequencySpecimen Description: CLEAN CATCHCBC W/AUTO [id number] 23:37:00* Test Item Value Reference Range Interpretation Comme nts WHITE BLOOD CELL (test code = WBC) 8.4 K/mm3 4.5-11.0 N RED BLOOD CELL (test code = RBC) 4.04 M/mm3 3.80-5.20 N HEMOGLOBIN (test code = HGB) 12.0 gm/dL 12.0-16.0 N HEMATOCRIT (test code = HCT) 36.0 % 36.0-48.0 N MEAN CELL VOLUME (test code = MCV) 89.1 UM3 82.0-99.0 N MEAN CELL HGB (test code = MCH) 29.7 UUG 25.5-32.5 N MEAN CELL HGB CONCETRATION (test code = MCHC) 33.3 gm/dL 29.0-35.5 N RED CELL DISTRIBUTION WIDTH (test code = RDW) 15.4 % 11.5-15.0 H RED CELL DISTRIBUTION WIDTH SD (test code = RDW-SD) 50.4 fL 34.8-50.2 H PLATELET COUNT (test code = PLT) 175 K/mm3 150-400 N MEAN PLATELET VOLUME (test c ode = MPV) 10.3 fl 7.4-10.4 N NEUTROPHIL % (test code = NT%) 70.0 % 49.0-76.0 N IMMATURE GRANULOCYTE % (test code = IG%) 0.2 % 0.0-0.4 N LYMPHOCYTE % (test code = LY%) 11.6 % 23.0-38.0 L MONOCYTE % (test code = MO%) 17.8 % 1.0-10.0 H EOSINOPHIL % (test code = EO%) 0.2 % 1.0-5.0 L BASOPHIL % (test code = BA%) 0.2 % 0.0-1.0 N NUCLEATED RBC % (test code = NRBC%) 0.0 % 0.0-0.1 N NEUTROPHIL # (test code = NT#) 5.9 K/mm3 2.4-6.3 N IMMATURE GRANULOCYTE # (test code = IG#) 0.02 x10 3/uL 0.00-0.07 N LYMPHOCYTE # (test code = LY#) 1.0 K/mm3 1.2-4.0 L MONOCYTE # (test code = MO#) 1.5 K/mm3 0.0-0.6 H EOSINOPHIL # (test code = EO#) 0.0 K/MM3 0.0-0.7 N BASOPHIL # (test code = BA#) 0.0 K/mm3 0.0-0.2 N NUCLEATED RBC # (test code = NRBC#) 0.00 X10 3uL 0.00-0.01 N - XR CHEST 1 [id number] 23:37:00 [facility] 1985 Sex: F FAX:Hermes Lockhart MD [place]: St: PRE Name: ADEEL DEL TORO [facility]ly [facility] : 1985 Age/S: 37/F [address] [facility] Unit #: [id number] Loc: E.ERS2 [place], [place]: [place] [address] Acct: [id number] Dis Date: Status: PRE ER PHONE #: [phone] Exam Date: 03/06/20232331 FAX #: [phone] Reason: fever EXAMS: CPT CODE: [id number] XR CHEST 1 V 66375 EXAMINATION: - XR CHEST 1 V CLINICAL INDICATION: Female, 37 years year old with fever COMPARISON: Chest April 29, 2020 FINDINGS: Single view(s) of the chest submitted. Support Devices: None. Heart: Cardiac silhouette is normal in size. Mediastinum: Mediastinal contours are normal. Lungs: Pulmonary vessels are normal in size. Lungs are well aerated and clear. Pleura: No pleural effusion is identified. No pneumothorax is present.Bones: Visualized skeleton is normal. IMPRESSION: No acute cardiopulmonary disease. at 2337 Reported and signed by: Dat Mendes M.D. CC: Hermes Lockhart MD Technologist: MARGO MERIDA Trnscrd Date/Time/By: 03/06/2023 (6357) : By: [id number] PAGE 1 Signed Report FAX: Hermes Lockhart MD [place]: St: PRE--------- Name: ADEEL DEL TORO [facility]ly [facility] : 1985 Age/S: 37/F [address] [facility] Unit #: [id number] Loc: [address] Phys: [place] [id number] Acct: [id number] Dis Date: Status: PRE ER PHONE #: [phone] Exam Date: 03/06/20232331 FAX #: [phone] Reason: fever EXAMS: CPT CODE: [id number] XR CHEST 1 V 73739 (Continued) Orig Print D/T: S: 03/06/2023 (2846) PAGE 2 Signed Reportprotein, urine, semiquantitative (dipstick)2021-01-06 14:37:00* Test Item Value Reference Range Interpretation Comme nts protein, urine, semiquantitative (dipstick) (test code = 1753-3) 48.5 (unknown unit) [facility] Healthcreatinine, random, [id number] 14:37:00* Test Item Value Reference Range Interpretation Comme nts creatinine, random, urine (t est code = 2161-8) 224.8 mg/dL [facility] HealthQuantiferon Gold TB blood test for tuberculosis screening 2021-01-06 14:37:00* Test Item Value Reference Range Interpretation Comme nts Quantiferon Gold TB blood te st for tuberculosis screening (test code = 25295-6) Negative Negative [facility] Healthbacteria, urine [id number] 14:03:00* Test Item Value Reference Range Interpretation Comme nts bacteria, urine microscopy ( test code = 5769-5) Many None seen/Few A [facility] Healthcasts, [id number] 14:03:00* Test Item Value Reference Range Interpretation Comme nts casts, urine (test code = 5626) None seen None seen [facility], [id number] 14:03:00* Test Item Value Reference Range Interpretation Comme nts epithelial cells, urine (iveth t code = 5787-7) 0-10 0-10 [facility] HospitalRBC, [id number] 14:03:00* Test Item Value Reference Range Interpretation Comme nts RBC, Urine (test code = 31734-2) 11-30 /hpf 0-2 A [facility] HospitalWBC urine on yrxsgeeukr2777-70-03 14:03:00* Test Item Value Reference Range Interpretation Comme nts WBC urine on microscopy (iveth t code = 1016) >30 /hpf 0-5 A [facility] Hospitalurinalysis, microscopic knxuynfofoj0915-82-39 14:03:00* Test Item Value Reference Range Interpretation Comme nts urinalysis, microscopic examination (test code = 19188-1) See below: [facility] Hospitalnitrate, [id number] 14:03:00* Test Item Value Reference Range Interpretation Comme nts nitrate, urine (test code = 40624-1) Positive Negative A [facility] Hospitalurobilinogen, urine, semiquantitative (dipstick) 2021-01-06 14:03:00* Test Item Value Reference Range Interpretation Comme nts urobilinogen, urine, semiquantitative (dipstick) (test code = 5818-0) 0.2 (unknown unit) 0.2-1.0 [facility]bilirubin, [id number] 14:03:00* Test Item Value Reference Range Interpretation Comme nts bilirubin, urine (test code = 5770-3) Negative Negative [facility] Healthketones, urine, by test [id number] 14:03:00* Test Item Value Reference Range Interpretation Comme nts ketones, urine, by test stri p (test code = 5797-6) Negative Negative [facility] Hospitalglucose, urine, [id number]4 14:03:00* Test Item Value Reference Range Interpretation Comme nts glucose, urine, semiquantita tive (test code = 5792-7) Negative Negative [facility] Hospitalprotein, urine, semiquantitative (dipstick)2021-01-06 14:03:00* Test Item Value Reference Range Interpretation Comme nts protein, urine, semiquantita tive (dipstick) (test code = 1753-3) 1+ Negative/Trace A [facility] Hospitalleukocyte esterase, urine, by [id number] 14:03:00 * Test Item Value Reference Range Interpretation Comme nts leukocyte esterase, urine, b y dipstick (test code = 5799-2) 3+ Negative A [facility] Healthappearance, [id number] 14:03:00* Test Item Value Reference Range Interpretation Comme nts appearance, urine (test code = 5767-9) Cloudy Clear A [facility] Hospitalurine [id number] 14:03:00* Test Item Value Reference Range Interpretation Comme nts urine color (test code = 5778-6) Yellow Yellow [facility] HospitalpH, urine, ljzzddbiazjekylx9133-89-53 14:03:00* Test Item Value Reference Range Interpretation Comme nts pH, urine, semiquantitative (test code = 5803-2) 6.0 (unknown unit) 5.0-7.5 [facility] Hospitalspecific gravity, body [id number] 14:03:00* Test Item Value Reference Range Interpretation Comme nts specific gravity, body fluid (test code = 2964-5) 1.020 (unknown unit) 1.005-1.030 [facility] HospitalNeisseria gonorrhoeae, throat sorjdcg1393-83-71 14:03:00 * Test Item Value Reference Range Interpretation Comme nts Neisseria gonorrhoeae, throa t culture (test code = 3553) Negative Negative [facility] HospitalNeisseria gonorrhoeae DNA [id number] 14:03:00* Test Item Value Reference Range Interpretation Comme nts Neisseria gonorrhoeae DNA pr obe (test code = 94187-3) Negative Negative [facility] Hospitalchlamydia DNA [id number] 14:03:00* Test Item Value Reference Range Interpretation Comme nts chlamydia DNA probe (test co de = 37874-0) Negative Negative [facility] Hospitalhepatitis B core antibody, [id number] 14:03:00* Test Item Value Reference Range Interpretation Comme nts hepatitis B core antibody, t otal (test code = 77) Negative Negative [facility] Healthhepatitis B surface [id number] 14:03:00* Test Item Value Reference Range Interpretation Comme nts hepatitis B surface antigen (test code = 79) Negative Negative [facility] Healthbilirubin, serum, [id number] 14:03:00* Test Item Value Reference Range Interpretation Comme nts bilirubin, serum, direct (te st code = 1968-7) <0.10 mg/dL 0.00-0.40 [facility] Hospitalhepatitis C antibody, [id number] 14:03:00* Test Item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 ?| ? Stage three ? + --+ --+ ------+| ?15-29 ?| ?Stage four ? | ? Stage four ?+ ---+ ---+ -------+| ?<15 (or dialysis) ? ?| ?Stage five ? | ? Stage five ?+ ---+ ---+ -------+ *Each stage assumes the associated GFR level has been in effect for at least three months. ?Stages 1 to 5, with or without kidney disease, indicate chronic kidney disease. Notes: Determination of stages one and two (with eGFR >59mL/min/1.73 m2) requires estimation of kidney damage for at least three months as defined by structural or functional abnormalities of the kidney, manifested by either:Pathological abnormalities or Markers of kidney damage (including abnormalities in the composition of the blood or urine or abnormalities in imaging tests). Lab Interpretation (test code = 93027-3) Abnormal [facility] WITH [id number] 11:29:00* Test Item Value Reference Range Interpretation Comme nts WBC (test code = 6690-2) See_Comment [Automated [employer]] The system which generated this result transmitted reference range: 4.30 - 11.10 10*3/?L. The reference range was not used to interpret this result as normal/abnormal. RBC (test code = 789-8) See_Comment [Automated [employer]] The system which generated this result transmitted reference range: 3.93 - 5.25 10*6/?L. The reference range was not used to interpret this result as normal/abnormal. HGB (test code = 718-7) 12.4 g/dL 11.6-15 HCT (test code = 4544-3) 36.0 % 35.7-45.2 MCV (test code = 787-2) 87.0 fL 80.6-95.5 MCH (test code = 785-6) 30.0 pg 25.9-32.8 MCHC (test code = 786-4) 34.4 g/dL 31.6-35.1 RDW-SD (test code = 92745-1) 37.9 fL 39-49.9 L RDW-CV (test code = 788-0) 11.9 % 12-15.5 L PLT (test code = 777-3) See_Comment [Automated mess[employer] ge] The system which generated this result transmitted reference range: 166 - 358 10*3/?L. The reference range was not used to interpret this result as normal/abnormal. MPV (test code = 27994-1) 10.6 fL 9.5-12.9 NRBC/100 WBC (test code = 6155255241) See_Comment [Automated [employer] ssage] The system which generated this result transmitted reference range: 0.0 - 10.0 /100 WBCs. The reference range was not used to interpret this result as normal/abnormal. NRBC x10^3 (test code = 2770510607) <0.01 See_Comment [Automated [employer]] The system which generated this result transmitted reference range: 10*3/?L. The reference range was not used to interpret this result as normal/abnormal. GRAN MAT (NEUT) % (test code = 770-8) 74.4 % IMM GRAN % (test code = 8800383340) 0.90 % LYMPH % (test code = 736-9) 11.0 % MONO % (test code = 5905-5) 11.4 % EOS % (test code = 713-8) 1.9 % BASO % (test code = 706-2) 0.4 % GRAN MAT x10^3(ANC) (test code = 2662132651) 5.74 10*3/uL 1.88-7.09 IMM GRAN x10^3 (test code = 2705098526) 0.07 10*3/uL 0-0.06 H LYMPH x10^3 (test code = 731-0) 0.85 10*3/uL 1.32-3.29 L MONO x10^3 (test code = 742-7) 0.88 10*3/uL 0.33-0.92 EOS x10^3 (test code = 711-2) 0.15 10*3/uL 0.03-0.39 BASO x10^3 (test code = 704-7) 0.03 10*3/uL 0.01-0.07 Lab Interpretation (test code = 79638-5) [facility]normal [facility] [id number] 11:15:00* Test Item Value Reference Range Interpretation Comme nts POCT PREG (test code = 1605) NEGATIVE On board controls acceptable with C Line (test code = 3574) present POCT PREG LOT # (test code = 3575) [id number] POCT PREG TEST DATE ( test code = 3576) 10/12/2020 Lab Interpretation (test cod e = 82478-2) Normal [facility]aLaokic Acid Whole [id number] 11:14:00* Test Item Value Reference Range Interpretation Comme nts LACTIC ACID (test code = 5522780331) 1.68 mmol/L QUES [facility]aNeisseria gonorrhoeae DNA [id number] 15:52:00* Test Item Value Reference Range Interpretation Comme nts Neisseria gonorrhoeae DNA pr obe (test code = 24624-1) Negative Negative [facility] [id number] 15:52:00* Test Item Value Reference Range Interpretation Comme nts chlamydia DNA probe (test co de = 38410-6) Negative Negative [facility] HealthNeisseria gonorrhoeae DNA hrtha0129-03-57 15:52:00* Test Item Value Reference Range Interpretation Comme nts Neisseria gonorrhoeae DNA pr obe (test code = 00979-8) Negative Negative [facility] Healthferritin, oxict0582-43-51 15:35:00* Test Item Value Reference Range Interpretation Comme nts ferritin, serum (test code = 2276-4) 55 ng/mL 15-150 [facility], [id number] 15:35:00* Test Item Value Reference Range Interpretation Comme nts rapid plasma reagin antibody , serum (test code = 5291-0) Non Reactive Non Reactive [facility] percent, lzjer4524-13-63 15:35:00* Test Item Value Reference Range Interpretation Comme nts iron saturation percent, ser um (test code = 2502-3) 22 % 15-55 [facility], eywmj4216-17-85 15:35:00* Test Item Value Reference Range Interpretation Comme nts iron, serum (test code = 2498-4) 68 ug/dL 27-159 [facility] binding capacity, oeigfwlgmdp1339-02-85 15:35:00* Test Item Value Reference Range Interpretation Comme nts iron binding capacity, unsat urated (test code = 2501-5) 240 ug/dL 131-425 [facility] binding capacity, qnmya0901-54-26 15:35:00* Test Item Value Reference Range Interpretation Comme nts iron binding capacity, total (test code = 2500-7) 308 ug/dL 250-450 [facility] (SGPT), [id number] 15:35:00 * Test Item Value Reference Range Interpretation Comme nts alanine aminotransferase (SG PT), serum (test code = 1742-6) 18 1/L 0-32 [facility] Hospitalaspartate aminotransferase (SGOT), ihvuu8721-80-08 15:35:00* Test Item Value Reference Range Interpretation Comme nts aspartate aminotransferase ( SGOT), serum (test code = 1920-8) 32 1/L 0-40 [facility] phosphatase, [id number] 15:35:00* Test Item Value Reference Range Interpretation Comme nts alkaline phosphatase, serum (test code = 1783-0) 67 1/L 39-117 [facility]bil[facility], serum, uidby9864-87-72 15:35:00* Test Item Value Reference Range Interpretation Comme nts bilirubin, serum, total (iveth t code = 1975-2) <0.2 mg/dL 0.0-1.2 [facility]/globulin ratio, cipen1770-31-62 15:35:00* Test Item Value Reference Range Interpretation Comme nts albumin/globulin ratio, serum (test code = 1759-0) 1.4 (unknown unit) 1.2-2.2 [facility] Healthglobulin, [id number] 15:35:00* Test Item Value Reference Range Interpretation Comme nts globulin, serum (test code = 2336-6) 3.0 (unknown unit) 1.5-4.5 [facility] Healthalbumin, [id number] 15:35:00* Test Item Value Reference Range Interpretation Comme nts albumin, serum (test code = 1751-7) 4.3 g/dL 3.8-4.8 [facility] Healthprotein, total, [id number] 15:35:00* Test Item Value Reference Range Interpretation Comme nts protein, total, serum (test code = 2885-2) 7.3 g/dL 6.0-8.5 [facility] Healthcalcium, eojlo0812-87-71 15:35:00* Test Item Value Reference Range Interpretation Comme nts calcium, serum (test code = 2000-8) 9.0 mg/dL 8.7-10.2 [facility], venous owlxa9188-76-03 15:35:00* Test Item Value Reference Range Interpretation Comme nts carbon dioxide, venous blood (test code = 2027-1) 19 mmol/L 20-29 L [facility] Healthchloride, kscpb0349-57-95 15:35:00* Test Item Value Reference Range Interpretation Comme nts chloride, serum (test code = 2075-0) 104 mmol/L 96-106 [facility] Healthpotassium, [id number] 15:35:00* Test Item Value Reference Range Interpretation Comme nts potassium, serum (test code = 2823-3) 4.5 mmol/L 3.5-5.2 [facility] Healthsodium, vfmyf1807-29-89 15:35:00* Test Item Value Reference Range Interpretation Comme nts sodium, serum (test code = 2951-2) 137 mmol/L 134-144 [facility] Hospitalure[facility] nitrogen/creatinine ratio, lzsku1847-00-58 15:35:00 * Test Item Value Reference Range Interpretation Comme nts urea nitrogen/creatinine ratio, serum (test code = 3097-3) 14 (unknown unit) 9-23 [facility] HealtheGFR if Xodhobpu4688-85-68 15:35:00* Test Item Value Reference Range Interpretation Comme nts eGFR if (test code = 62376-8) 101 mL/min/{1.73 m2} >59 [facility] HospitalEstimated Glomerular Filtration Rate (calc)2019-06-14 15:35:00* Test Item Value Reference Range Interpretation Comme nts Estimated Glomerular Filtration Rate (calc) (test code = 01674-3) 87 mL/min/{1.73 m2} >59 [facility]inine, vnriw1059-12-74 15:35:00* Test Item Value Reference Range Interpretation Comme nts creatinine, serum (test code = 2160-0) 0.87 mg/dL 0.57-1.00 [facility]urea nitrogen, hxgbe9827-93-31 15:35:00* Test Item Value Reference Range Interpretation Comme nts urea nitrogen, blood (test c ode = 3094-0) 12 mg/dL 6-20 [facility]blood glucose, iotcpg4193-06-12 15:35:00* Test Item Value Reference Range Interpretation Comme nts blood glucose, random (test code = 2339-0) 90 mg/dL 65-99 [facility] Hospitalimmature granulocytes, percentage of total cells, blood 2019-06-14 15:35:00* Test Item Value Reference Range Interpretation Comme nts immature granulocytes, perce ntage of total cells, blood (test code = 76815-1) 0 % [facility] Hospitalbasophil count, fuhhammn8668-45-90 15:35:00* Test Item Value Reference Range Interpretation Comme nts basophil count, absolute (te st code = 02656-8) 0.0 x10E3/uL 0.0-0.2 [facility] HospitalEosinophil Absolute Zyhct3975-30-50 15:35:00* Test Item Value Reference Range Interpretation Comme nts Eosinophil Absolute Count (t est code = 24682-0) 2.1 X10E3/UL 0.0-0.4 H [facility] Hospitalmonocyte count, blood, jwzfuaxxo4915-36-41 15:35:00* Test Item Value Reference Range Interpretation Comme nts monocyte count, blood, autom ated (test code = 742-7) 0.5 X10E3/UL 0.1-0.9 [facility] Hospitallymphocyte count, blood, ochrcomno1209-31-53 15:35:00* Test Item Value Reference Range Interpretation Comme nts lymphocyte count, blood, automated (test code = 731-0) 0.7 X10E3/UL 0.7-3.1 [facility] HospitalAbsolute Cnsbrkbeglx6829-41-19 15:35:00* Test Item Value Reference Range Interpretation Comme nts Absolute Neutrophils (test c ode = 15688-2) 2.7 X10E3/UL 1.4-7.0 [facility] Hospitalbasophils as percent of blood thxjlksdme2872-43-07 15:35:00* Test Item Value Reference Range Interpretation Comme nts basophils as percent of bloo d leukocytes (test code = 707-0) 0 % [facility] Hospitaleosinophils as percent of blood okolmkzewo5601-87-58 15:35:00* Test Item Value Reference Range Interpretation Comme nts eosinophils as percent of bl ood leukocytes (test code = 713-8) 35 % [facility] Healthmonocytes as percent of blood tbdfilikxm8211-62-03 15:35:00* Test Item Value Reference Range Interpretation Comme nts monocytes as percent of bloo d leukocytes (test code = 5905-5) 8 % [facility] Hospitallymphocytes as percent of blood tpszuwkgmd7800-51-84 15:35:00* Test Item Value Reference Range Interpretation Comme nts lymphocytes as percent of bl ood leukocytes (test code = 736-9) 12 % [facility] Hospitalneutrophils as percent of blood irokufdpkv6620-57-95 15:35:00* Test Item Value Reference Range Interpretation Comme nts neutrophils as percent of bl ood leukocytes (test code = 770-8) 45 % [facility] Hospitalplatelet jdooc2300-77-85 15:35:00* Test Item Value Reference Range Interpretation Comme nts platelet count (test code = 777-3) 207 X10E3/UL 150-450 [facility] Hospitalred blood cell distribution abdrh8134-90-28 15:35:00* Test Item Value Reference Range Interpretation Comme nts red blood cell distribution width (test code = 788-0) 15.1 % 11.7-15.4 [facility] corpuscular hemoglobin concentration, PPC9847-47-23 15:35:00* Test Item Value Reference Range Interpretation Comme [facility] mean corpuscular hemoglobin concentration, RBC (test code = 786-4) 32.8 G/DL 31.5-35.7 [facility] corpuscular hemoglobin, EOD5123-68-40 15:35:00* Test Item Value Reference Range Interpretation Comme [facility] mean corpuscular hemoglobin, RBC (test code = 785-6) 30.1 pg 26.6-33.0 [facility] corpuscular volume, PWE1101-95-48 15:35:00* Test Item Value Reference Range Interpretation Comme [facility] mean corpuscular volume, RBC (test code = 787-2) 92 fL 79-97 [facility] Hospitalhematocrit, jjcnd0393-84-58 15:35:00* Test Item Value Reference Range Interpretation Comme [facility] hematocrit, blood (test code = 4544-3) 38.1 % 34.0-46. 6 [facility]hemoglobin, nozgl4443-90-36 15:35:00* Test Item Value Reference Range Interpretation Comme [facility] hemoglobin, blood (test code = 718-7) 12.5 g/dL 11.1-15.9 [facility] Hospitalerythrocyte (RBC) qrupc5891-28-29 15:35:00* Test Item Value Reference Range Interpretation Comme [facility] erythrocyte (RBC) count (iveth t code = 789-8) 4.15 X10E6/UL 3.77-5.28 [facility] Hospitalleukocyte count, voixd7900-40-78 15:35:00* Test Item Value Reference Range Interpretation Comme [facility] leukocyte count, blood (test code = 6690-2) 6.0 X10E3/UL 3.4-10.8 [facility] HospitalT-helper cells (CD4) as percent of blood lymphocytes 2019-06-14 15:35:00* Test Item Value Reference Range Interpretation Comme [facility] T-helper cells (CD4) as perc ent of blood lymphocytes (test code = 8123-2) 17.5 % 30.8-58.5 L [facility] HospitalT-helper cells (CD4) pbohe3978-02-49 15:35:00* Test Item Value Reference Range Interpretation Comme nts T-helper cells (CD4) count ( test code = 39234-8) 123 /UL 359-1519 L [facility] HospitalHIV-1RNA, serum, by PCR, emjpjonhnyvf0814-93-89 15:35:00 * Test Item Value Reference Range Interpretation Comme nts HIV-1RNA, serum, by PCR, quantitative (test code = 87933-5) 1240 /mL [facility] HospitalCD4/CD8 ekjuu1520-28-22 15:35:00* Test Item Value Reference Range Interpretation Comme nts CD4/CD8 ratio (test code = 71946) 0.30 (unknown unit) 0.92-3.72 L [facility] HospitalT-suppressor cells (CD8) as percent of blood lymphocytes 2019-06-14 15:35:00* Test Item Value Reference Range Interpretation Comme nts T-suppressor cells (CD8) as percent of blood lymphocytes (test code = 3517) 57.7 % 12.0-35.5 H [facility] Hospitalabsolute [id number] 15:35:00* Test Item Value Reference Range Interpretation Comme nts absolute CD8 (test code = 30990) 404 (unknown unit) 109-897 [facility] HospitalHIV-1RNA, serum, by PCR, yyazoqtrgptw4510-34-23 15:35:00 * Test Item Value Reference Range Interpretation Comme nts HIV-1RNA, serum, by PCR, quantitative (test code = 88357) 1240 /mL [facility] HospitalCD4/CD8 yahqk5211-53-74 15:35:00* Test Item Value Reference Range Interpretation Comme nts CD4/CD8 ratio (test code = 43376) 0.30 (unknown unit) 0.92-3.72 L [facility] HospitalT-suppressor cells (CD8) as percent of blood lymphocytes 2019-06-14 15:35:00* Test Item Value Reference Range Interpretation Comme nts T-suppressor cells (CD8) as percent of blood lymphocytes (test code = 3517) 57.7 % 12.0-35.5 H [facility] Hospitalabsolute [id number] 15:35:00* Test Item Value Reference Range Interpretation Comme nts absolute CD8 (test code = 24945) 404 (unknown unit) 109-897 [facility] Hospitalrapid plasma reagin antibody, ohwmt2463-88-67 15:12:00* Test Item Value Reference Range Interpretation Comme nts rapid plasma reagin antibody , serum (test code = 5291-0) Non Reactive Non Reactive [facility] Hospitalalanine aminotransferase (SGPT), kfqmd8778-88-38 15:12:00 * Test Item Value Reference Range Interpretation Comme nts alanine aminotransferase (SG PT), serum (test code = 1742-6) 36 1/L 0-32 H [facility] Hospitalaspartate aminotransferase (SGOT), hazxu3908-69-17 15:12:00* Test Item Value Reference Range Interpretation Comme nts aspartate aminotransferase ( SGOT), serum (test code = 1920-8) 38 1/L 0-40 [facility] Hospitalalkaline phosphatase, ngftm5773-65-60 15:12:00* Test Item Value Reference Range Interpretation Comme nts alkaline phosphatase, serum (test code = 1783-0) 77 1/L 39-117 [facility] Hospitalbilirubin, serum, qxrit2508-10-43 15:12:00* Test Item Value Reference Range Interpretation Comme nts bilirubin, serum, total ([facility] t code = 1975-2) <0.2 mg/dL 0.0-1.2 [facility] Hospitalalbumin/globulin ratio, blmiv6091-38-61 15:12:00* Test Item Value Reference Range Interpretation Comme nts albumin/globulin ratio, serum (test code = 1759-0) 1.1 (unknown unit) 1.2-2.2 L [facility] Healthglobulin, rtsfk7673-27-00 15:12:00* Test Item Value Reference Range Interpretation Comme nts globulin, serum (test code = 2336-6) 3.3 (unknown unit) 1.5-4.5 [facility] Healthalbumin, rgwbz4309-05-64 15:12:00* Test Item Value Reference Range Interpretation Comme nts albumin, serum (test code = 1751-7) 3.5 g/dL 3.5-5.5 [facility] Hospitalprotein, total, vpbxa6011-05-83 15:12:00* Test Item Value Reference Range Interpretation Comme nts protein, total, serum (test code = 2885-2) 6.8 g/dL 6.0-8.5 [facility] Healthcalcium, swoxr9757-23-13 15:12:00* Test Item Value Reference Range Interpretation Comme nts calcium, serum (test code = 2000-8) 8.3 mg/dL 8.7-10.2 L [facility] Hospitalcarbon dioxide, venous wbyua3364-57-77 15:12:00* Test Item Value Reference Range Interpretation Comme nts carbon dioxide, venous blood (test code = 2027-1) 22 mmol/L 20-29 [facility] Healthchloride, fatoy6841-60-47 15:12:00* Test Item Value Reference Range Interpretation Comme nts chloride, serum (test code = 2075-0) 105 mmol/L 96-106 [facility] Healthpotassium, nmgwq2794-96-25 15:12:00* Test Item Value Reference Range Interpretation Comme nts potassium, serum (test code = 2823-3) 3.3 mmol/L 3.5-5.2 L [facility] Hospitalsodium, dcysp4701-29-99 15:12:00* Test Item Value Reference Range Interpretation Comme nts sodium, serum (test code = 2951-2) 142 mmol/L 134-144 [facility] Hospitalurea nitrogen/creatinine ratio, txnum3734-51-27 15:12:00 * Test Item Value Reference Range Interpretation Comme nts urea nitrogen/creatinine ratio, serum (test code = 3097-3) 20 (unknown unit) 9-23 [facility] HealtheGFR if Kgvydhuh3760-89-10 15:12:00* Test Item Value Reference Range Interpretation Comme nts eGFR if (test code = 23615-9) 137 mL/min/{1.73 m2} >59 [facility] HospitalEstimated Glomerular Filtration Rate (calc)2019-01-19 15:12:00* Test Item Value Reference Range Interpretation Comme nts Estimated Glomerular Filtration Rate (calc) (test code = 12109-2) 119 mL/min/{1.73 m2} >59 [facility] Hospitalcreatinine, rzcss3559-13-48 15:12:00* Test Item Value Reference Range Interpretation Comme nts creatinine, serum (test code = 2160-0) 0.61 mg/dL 0.57-1.00 [facility] Hospitalurea nitrogen, vjgnk5566-21-99 15:12:00* Test Item Value Reference Range Interpretation Comme nts urea nitrogen, blood (test c ode = 3094-0) 12 mg/dL 6-20 [facility] Hospitalblood glucose, gboxxj9549-20-89 15:12:00* Test Item Value Reference Range Interpretation Comme nts blood glucose, random (test code = 2339-0) 99 mg/dL 65-99 [facility] Hospitalimmature granulocytes, percentage of total cells, blood 2019-01-19 15:12:00* Test Item Value Reference Range Interpretation Comme nts immature granulocytes, perce ntage of total cells, blood (test code = 95922-8) 1 % [facility] Hospitalbasophil count, wywpnucy9069-98-54 15:12:00* Test Item Value Reference Range Interpretation Comme nts basophil count, absolute (te st code = 81392-5) 0.0 x10E3/uL 0.0-0.2 [facility] HospitalEosinophil Absolute Yxutw8947-99-70 15:12:00* Test Item Value Reference Range Interpretation Comme nts Eosinophil Absolute Count (t est code = 60313-0) 0.1 X10E3/UL 0.0-0.4 [facility] Hospitalmonocyte count, blood, usdlildjz3523-43-99 15:12:00* Test Item Value Reference Range Interpretation Comme nts monocyte count, blood, autom ated (test code = 742-7) 0.7 X10E3/UL 0.1-0.9 [facility] Hospitallymphocyte count, blood, dqcircnxl0249-09-02 15:12:00* Test Item Value Reference Range Interpretation Comme nts lymphocyte count, blood, automated (test code = 731-0) 1.1 X10E3/UL 0.7-3.1 [facility] HospitalAbsolute Nmysqaigfni8802-77-46 15:12:00* Test Item Value Reference Range Interpretation Comme nts Absolute Neutrophils (test c ode = 49949-6) 2.2 X10E3/UL 1.4-7.0 [facility] Hospitalbasophils as percent of blood qqxikybpwp8461-39-36 15:12:00* Test Item Value Reference Range Interpretation Comme nts basophils as percent of bloo d leukocytes (test code = 707-0) 1 % [facility] Hospitaleosinophils as percent of blood abkamjvqfl9385-83-59 15:12:00* Test Item Value Reference Range Interpretation Comme nts eosinophils as percent of bl ood leukocytes (test code = 713-8) 3 % [facility] Hospitalmonocytes as percent of blood jqpljtsxbd4674-36-42 15:12:00* Test Item Value Reference Range Interpretation Comme nts monocytes as percent of bloo d leukocytes (test code = 5905-5) 16 % [facility] Hospitallymphocytes as percent of blood kxgwddegzt0751-92-33 15:12:00* Test Item Value Reference Range Interpretation Comme nts lymphocytes as percent of bl ood leukocytes (test code = 736-9) 27 % [facility] Hospitalneutrophils as percent of blood lpjxbeunxp6316-98-27 15:12:00* Test Item Value Reference Range Interpretation Comme nts neutrophils as percent of bl ood leukocytes (test code = 770-8) 52 % [facility] Hospitalplatelet ehnbt8218-03-74 15:12:00* Test Item Value Reference Range Interpretation Comme [facility] platelet count (test code = 777-3) 307 X10E3/UL 150-450 [facility] Hospitalred blood cell distribution tbwyv1487-01-09 15:12:00* Test Item Value Reference Range Interpretation Comme [facility] red blood cell distribution width (test code = 788-0) 22.9 % 12.3-15.4 H [facility] corpuscular hemoglobin concentration, YYQ2465-70-04 15:12:00* Test Item Value Reference Range Interpretation Comme [facility] mean corpuscular hemoglobin concentration, RBC (test code = 786-4) 30.0 G/DL 31.5-35.7 L [facility] corpuscular hemoglobin, XIN1396-43-53 15:12:00* Test Item Value Reference Range Interpretation Comme [facility] mean corpuscular hemoglobin, RBC (test code = 785-6) 29.2 pg 26.6-33.0 [facility] corpuscular volume, NSP9104-00-46 15:12:00* Test Item Value Reference Range Interpretation Comme [facility] mean corpuscular volume, RBC (test code = 787-2) 98 fL 79-97 H [facility] Hospitalhematocrit, mixec7227-69-23 15:12:00* Test Item Value Reference Range Interpretation Comme [facility] hematocrit, blood (test code = 4544-3) 31.0 % 34.0-46. 6 L [facility] Hospitalhemoglobin, qgakk2471-34-48 15:12:00* Test Item Value Reference Range Interpretation Comme nts hemoglobin, blood (test code = 718-7) 9.3 g/dL 11.1-15.9 L [facility] Hospitalerythrocyte (RBC) revid4370-28-71 15:12:00* Test Item Value Reference Range Interpretation Comme [facility] erythrocyte (RBC) count (iveth t code = 789-8) 3.18 X10E6/UL 3.77-5.28 L [facility] Hospitalleukocyte count, lctvq6783-95-16 15:12:00* Test Item Value Reference Range Interpretation Comme [facility] leukocyte count, blood (test code = 6690-2) 4.1 X10E3/UL 3.4-10.8 [facility] HospitalT-helper cells (CD4) as percent of blood lymphocytes 2019-01-19 15:12:00* Test Item Value Reference Range Interpretation Comme [facility] T-helper cells (CD4) as perc ent of blood lymphocytes (test code = 8123-2) 11.5 % 30.8-58.5 L [facility] HospitalT-helper cells (CD4) opqcf6578-95-39 15:12:00* Test Item Value Reference Range Interpretation Comme [facility] T-helper cells (CD4) count ( test code = 05805-5) 127 /UL 359-1519 L [facility] HospitalHIV-1RNA, serum, by PCR, atwypxhwsnkz4556-38-11 15:12:00 * Test Item Value Reference Range Interpretation Comme [facility] HIV-1RNA, serum, by PCR, quantitative (test code = 94795-0) 167146 /mL [facility] HospitalCD4/CD8 tmxdt0646-75-27 15:12:00* Test Item Value Reference Range Interpretation Comme [facility] CD4/CD8 ratio (test code = 89640) 0.15 (unknown unit) 0.92-3.72 L [facility] HospitalT-suppressor cells (CD8) as percent of blood lymphocytes 2019-01-19 15:12:00* Test Item Value Reference Range Interpretation Comme nts T-suppressor cells (CD8) as percent of blood lymphocytes (test code = 3517) 77.3 % 12.0-35.5 H [facility]abs[facility] [id number] 15:12:00* Test Item Value Reference Range Interpretation Comme nts absolute CD8 (test code = 18570) 850 (unknown unit) 109-897 [facility] HospitalHIV-1RNA, serum, by PCR, rqwgxktbeewp1731-88-90 15:12:00 * Test Item Value Reference Range Interpretation Comme nts HIV-1RNA, serum, by PCR, quantitative (test code = 94756) 176489 /mL [facility] HospitalCD4/CD8 thjub6229-38-09 15:12:00* Test Item Value Reference Range Interpretation Comme nts CD4/CD8 ratio (test code = 09626) 0.15 (unknown unit) 0.92-3.72 L [facility] HospitalT-suppressor cells (CD8) as percent of blood lymphocytes 2019-01-19 15:12:00* Test Item Value Reference Range Interpretation Comme nts T-suppressor cells (CD8) as percent of blood lymphocytes (test code = 3517) 77.3 % 12.0-35.5 H [facility] [id number] 15:12:00* Test Item Value Reference Range Interpretation Comme nts absolute CD8 (test code = 62059) 850 (unknown unit) 109-897 [facility] HospitalNeisseria gonorrhoeae DNA zepss6760-56-98 14:55:00* Test Item Value Reference Range Interpretation Comme nts Neisseria gonorrhoeae DNA pr obe (test code = 90387-5) Negative Negative [facility] Hospitalchlamydia DNA axodv9297-01-44 14:55:00* Test Item Value Reference Range Interpretation Comme nts chlamydia DNA probe (test co de = 31058-2) Negative Negative [facility] HospitalNeisseria gonorrhoeae DNA monrh6683-06-94 14:55:00* Test Item Value Reference Range Interpretation Comme nts Neisseria gonorrhoeae DNA pr obe (test code = 66008-5) Negative Negative [facility]LA[facility] [id number] 02:28:00* Test Item Value Reference Range Interpretation Comme nts LACTIC ACID POC (test code = LACTP) 0.80 MMOL/L 0.90-1.70 L BASIC METABOLIC VJWHL5487-91-84 02:12:00* Test Item Value Reference Range Interpretation Comme nts SODIUM (test code = NA) 133 mmol/L 134-147 L POTASSIUM (test code = K) 3.2 mmol/L 3.4-5.0 L CHLORIDE (test code = CL) 97 mmol/L 100-108 L CARBON DIOXIDE (test code = CO2) 22 mmol/L 21-32 N ANION GAP (test code = GAP) 14.0 GAP calc 4.0-15.0 N GLUCOSE (test code = GLU) 86 MG/DL 70-110 N BLOOD UREA NITROGEN (test co de = BUN) 21 MG/DL 7-18 H GLOMERULAR FILTRATION RATE (test code = GFR) 55 estGFR >60 L CREATININE (test code = CREAT) 1.4 MG/DL 0.6-1.0 H CALCIUM (test code = CA) 8.6 MG/DL 8.5-10.1 N LACTIC DEHYDROGENASE(LDH)2018-10-25 02:12:00* Test Item Value Reference Range Interpretation Comme nts LACTIC DEHYDROGENASE(LDH) (t est code = LDH) 356 Unit/L 84-246 H CBC W/O [id number] 02:03:00* Test Item Value Reference Range Interpretation Comme nts WHITE BLOOD CELL (test code = WBC) 5.2 K/mm3 3.5-11.0 N RED BLOOD CELL (test code = RBC) 4.15 M/mm3 4.70-6.10 L HEMOGLOBIN (test code = HGB) 12.5 G/DL 10.4-14.9 N HEMATOCRIT (test code = HCT) 36.4 % 31.5-44.1 N MEAN CELL VOLUME (test code = MCV) 87.7 Fl 84.5-98.6 N MEAN CELL HGB (test code = MCH) 30.1 pg 27.0-34.2 N MEAN CELL HGB CONCETRATION ( test code = MCHC) 34.3 G/DL 31.5-34.0 H RED CELL DISTRIBUTION WIDTH (test code = RDW) 12.8 SD 11.5-14.5 N PLATELET COUNT (test code = PLT) 94.0 K/mm3 150-450 L MEAN PLATELET VOLUME (test c ode = MPV) 11.00 fL 7.0-10.5 H HCG [id number] 02:00:00* Test Item Value Reference Range Interpretation Comme nts HCG POC (test code = HCGPOC) <5 IU/L <5.0 N <5.0 IU/L NEGATI VE5.0 - 25.0 IU/L INDETERMINATE>25.0 POSITIVE Detection of low levels of hCG does not rule out .Because hCG values double approximately every 48 hours in anormal , patients with low levels of hCG should beresampled and retested after 48 hours - XR CHEST 1 [id number] 01:45:00Name: ADEEL DEL TORO [facility] : 1985 Age/S: 33 / F [address] [address] Unit #: [id number] Loc: [place] [address] Phys: Domo Woodson MD Acct: [id number] Dis Date: Status: REG ER PHONE # : [phone] Exam Date: 10/25/2018 0140 FAX #: Reason: SOB EXAMS: CPT: [id number] XR CHEST 1 V 37395 Fluoro Time: DAP (Gy m2): Air Kerma (mGy): AFTER HOURS SERVICE ON: 10/25/2018 1:44 AM AP PortableChest Location Code M12 HISTORY: SOB FINDINGS: There are no infiltrates. There are no pleural effusions. There is no pneumothorax. Cardiac silhouette and mediastinum appear within normal limits. IMPRESSION: No active pulmonary findings. at 0145 Reported and signed by: Shay Gomez M.D. CC: Domo Woodson MD PAGE 1 Signed Report Name: ADEEL DEL TORO [facility] : 1985 Age/S: 33 / F [address] [address] Unit #: [id number] Loc: [place] [address] Phys: Domo Woodson MD Acct: [id number] Dis Date: Status: REG ER PHONE #: [phone] Exam Date: 10/25/2018 014 FAX #: Reason: SOB EXAMS: CPT: [id number] XRCHEST 1 V 54319 Fluoro Time: DAP (Gy m2): Air Kerma (mGy): (Continued) Technologist: Dat Zhong, RT(R); Leonidas Del Rosario, RT(R)(CT) Trnscb Date/Time: 10/25/2018 (144) [id number] Orig Print D/T: S: 10/25/2018 (014) PAGE 2 Signed ReportNeisseria gonorrhoeae DNA cqlpp6335-21-60 11:43:00* Test Item Value Reference Range Interpretation Comme nts Neisseria gonorrhoeae DNA pr obe (test code = 43624-6) Negative Negative [facility]chlamydia DNA exvnz4541-91-24 11:43:00* Test Item Value Reference Range Interpretation Comme nts chlamydia DNA probe (test co de = 34588-6) Negative Negative [facility] HospitalNeisseria gonorrhoeae DNA mawxe9187-64-48 11:43:00* Test Item Value Reference Range Interpretation Comme nts Neisseria gonorrhoeae DNA pr obe (test code = 81699-5) Negative Negative [facility] HospitalLDL cholesterol, edrau4102-29-90 11:38:00* Test Item Value Reference Range Interpretation Comme nts LDL cholesterol, serum (test code = 2089-1) 109 mg/dL 0-99 H [facility] Hospitalvery low density jozqcgssopmp3275-30-21 11:38:00* Test Item Value Reference Range Interpretation Comme nts very low density lipoprotein s (test code = 2091-7) 17 mg/dL 5-40 [facility] HospitalHDL cholesterol, jbctx1028-58-01 11:38:00* Test Item Value Reference Range Interpretation Comme nts HDL cholesterol, serum (test code = 2085-9) 34 mg/dL >39 L [facility] Hospitaltriglyceride, serum, cjmgqez1702-86-61 11:38:00* Test Item Value Reference Range Interpretation Comme nts triglyceride, serum, fasting (test code = 2571-8) 84 mg/dL 0-149 [facility] Hospitalcholesterol, oofhr3791-38-89 11:38:00* Test Item Value Reference Range Interpretation Comme nts cholesterol, serum (test cod e = 2093-3) 160 mg/dL 100-199 [facility] Hospitalrapid plasma reagin antibody, yrguj5899-69-68 11:29:00* Test Item Value Reference Range Interpretation Comme nts rapid plasma reagin antibody , serum (test code = 5291-0) Non Reactive Non Reactive [facility] Hospitalalanine aminotransferase (SGPT), htmfi0945-82-99 11:29:00 * Test Item Value Reference Range Interpretation Comme nts alanine aminotransferase (SG PT), serum (test code = 1742-6) 24 1/L 0-32 [facility] Hospitalaspartate aminotransferase (SGOT), aohjy7310-28-44 11:29:00* Test Item Value Reference Range Interpretation Comme nts aspartate aminotransferase ( SGOT), serum (test code = 1920-8) 35 1/L 0-40 [facility] Hospitalalkaline phosphatase, egtay8562-38-63 11:29:00* Test Item Value Reference Range Interpretation Comme nts alkaline phosphatase, serum (test code = 1783-0) 59 1/L 39-117 [facility] Hospitalbilirubin, serum, thmep8054-41-58 11:29:00* Test Item Value Reference Range Interpretation Comme nts bilirubin, serum, total (iveth t code = 1975-2) 0.4 mg/dL 0.0-1.2 [facility] Healthalbumin/globulin ratio, [id number] 11:29:00* Test Item Value Reference Range Interpretation Comme nts albumin/globulin ratio, serum (test code = 1759-0) 1.3 (unknown unit) 1.2-2.2 [facility] Healthglobulin, [id number] 11:29:00* Test Item Value Reference Range Interpretation Comme nts globulin, serum (test code = 2336-6) 3.2 (unknown unit) 1.5-4.5 [facility] Healthalbumin, [id number] 11:29:00* Test Item Value Reference Range Interpretation Comme nts albumin, serum (test code = 1751-7) 4.3 g/dL 3.5-5.5 [facility] Healthprotein, total, [id number] 11:29:00* Test Item Value Reference Range Interpretation Comme nts protein, total, serum (test code = 2885-2) 7.5 g/dL 6.0-8.5 [facility] Healthcalcium, [id number] 11:29:00* Test Item Value Reference Range Interpretation Comme nts calcium, serum (test code = 2000-8) 9.2 mg/dL 8.7-10.2 [facility] venous [id number] 11:29:00* Test Item Value Reference Range Interpretation Comme nts carbon dioxide, venous blood (test code = 2027-1) 20 mmol/L 20-29 [facility] Healthchloride, [id number] 11:29:00* Test Item Value Reference Range Interpretation Comme nts chloride, serum (test code = 2075-0) 102 mmol/L 96-106 [facility] Healthpotassium, ckuln7303-68-86 11:29:00* Test Item Value Reference Range Interpretation Comme nts potassium, serum (test code = 2823-3) 3.6 mmol/L 3.5-5.2 [facility]alsodium, [id number] 11:29:00* Test Item Value Reference Range Interpretation Comme nts sodium, serum (test code = 2951-2) 138 mmol/L 134-144 [facility] Hospitalurea nitrogen/creatinine ratio, [id number] 11:29:00 * Test Item Value Reference Range Interpretation Comme nts urea nitrogen/creatinine ratio, serum (test code = 3097-3) 12 (unknown unit) 12-05 [facility] HealtheGFR if Onlrkrpb1678-75-03 11:29:00* Test Item Value Reference Range Interpretation Comme nts eGFR if (test code = 25523-4) 104 mL/min/{1.73 m2} >59 [facility] HospitalEstimated Glomerular Filtration Rate (calc)2018-07-05 11:29:00* Test Item Value Reference Range Interpretation Comme nts Estimated Glomerular Filtration Rate (calc) (test code = 35711-7) 90 mL/min/{1.73 m2} >59 [facility] Hospitalcreatinine, [id number] 11:29:00* Test Item Value Reference Range Interpretation Comme nts creatinine, serum (test code = 2160-0) 0.85 mg/dL 0.57-1.00 [facility]urea nitrogen, [id number] 11:29:00* Test Item Value Reference Range Interpretation Comme nts urea nitrogen, blood (test c ode = 3094-0) 10 mg/dL 6-20 [facility]blood glucose, [id number] 11:29:00* Test Item Value Reference Range Interpretation Comme nts blood glucose, random (test code = 2339-0) 97 mg/dL 65-99 [facility] Hospitalimmature granulocytes, percentage of total cells, blood 2018-07-05 11:29:00* Test Item Value Reference Range Interpretation Comme nts immature granulocytes, perce ntage of total cells, blood (test code = 64142-4) 1 % [facility] Hospitalbasophil count, isxnoeae0093-58-60 11:29:00* Test Item Value Reference Range Interpretation Comme nts basophil count, absolute (te st code = 17868-8) 0.0 x10E3/uL 0.0-0.2 [facility] HospitalEosinophil Absolute Fjnzf7819-84-32 11:29:00* Test Item Value Reference Range Interpretation Comme nts Eosinophil Absolute Count (t est code = 82107-1) 0.1 X10E3/UL 0.0-0.4 [facility] Hospitalmonocyte count, blood, txylzihcz5569-03-05 11:29:00* Test Item Value Reference Range Interpretation Comme nts monocyte count, blood, autom ated (test code = 742-7) 0.6 X10E3/UL 0.1-0.9 [facility] Hospitallymphocyte count, blood, heodsxull1233-08-81 11:29:00* Test Item Value Reference Range Interpretation Comme nts lymphocyte count, blood, automated (test code = 731-0) 0.6 X10E3/UL 0.7-3.1 L [facility] HospitalAbsolute Saltsyabhlb8208-33-03 11:29:00* Test Item Value Reference Range Interpretation Comme nts Absolute Neutrophils (test c ode = 10051-6) 3.2 X10E3/UL 1.4-7.0 [facility] Hospitalbasophils as percent of blood rigtyuyfmt9853-85-53 11:29:00* Test Item Value Reference Range Interpretation Comme nts basophils as percent of bloo d leukocytes (test code = 707-0) 0 % [facility] Hospitaleosinophils as percent of blood kegvkotpxe3534-09-33 11:29:00* Test Item Value Reference Range Interpretation Comme nts eosinophils as percent of bl ood leukocytes (test code = 713-8) 2 % [facility] Hospitalmonocytes as percent of blood nfouzskojj6062-45-29 11:29:00* Test Item Value Reference Range Interpretation Comme nts monocytes as percent of bloo d leukocytes (test code = 5905-5) 14 % [facility] Hospitallymphocytes as percent of blood rlkapdpkvp3046-75-95 11:29:00* Test Item Value Reference Range Interpretation Comme nts lymphocytes as percent of bl ood leukocytes (test code = 736-9) 13 % [facility] Hospitalneutrophils as percent of blood jhdlsucxre7609-27-36 11:29:00* Test Item Value Reference Range Interpretation Comme nts neutrophils as percent of bl ood leukocytes (test code = 770-8) 70 % [facility] Hospitalplatelet encus9373-75-02 11:29:00* Test Item Value Reference Range Interpretation Comme [facility] platelet count (test code = 777-3) 147 X10E3/UL 150-379 L [facility] Hospitalred blood cell distribution ynezg9513-53-59 11:29:00* Test Item Value Reference Range Interpretation Comme [facility] red blood cell distribution width (test code = 788-0) 14.1 % 12.3-15.4 [facility] corpuscular hemoglobin concentration, [id number] 11:29:00* Test Item Value Reference Range Interpretation Comme [facility] mean corpuscular hemoglobin concentration, RBC (test code = 786-4) 33.3 G/DL 31.5-35.7 [facility] corpuscular hemoglobin, [id number] 11:29:00* Test Item Value Reference Range Interpretation Comme [facility] mean corpuscular hemoglobin, RBC (test code = 785-6) 30.1 pg 26.6-33.0 [facility] corpuscular volume, [id number] 11:29:00* Test Item Value Reference Range Interpretation Comme [facility] mean corpuscular volume, RBC (test code = 787-2) 90 fL 79-97 [facility] Hospitalhematocrit, ynokb7479-07-26 11:29:00* Test Item Value Reference Range Interpretation Comme [facility] hematocrit, blood (test code = 4544-3) 40.5 % 34.0-46. 6 [facility] Hospitalhemoglobin, czyoo7486-13-08 11:29:00* Test Item Value Reference Range Interpretation Comme [facility] hemoglobin, blood (test code = 718-7) 13.5 g/dL 11.1-15.9 [facility] Hospitalerythrocyte (RBC) ppugy2000-73-87 11:29:00* Test Item Value Reference Range Interpretation Comme [facility] erythrocyte (RBC) count (iveth t code = 789-8) 4.48 X10E6/UL 3.77-5.28 [facility] Hospitalleukocyte count, fqfgi0266-85-37 11:29:00* Test Item Value Reference Range Interpretation Comme [facility] leukocyte count, blood (test code = 6690-2) 4.5 X10E3/UL 3.4-10.8 [facility] HospitalT-helper cells (CD4) as percent of blood lymphocytes 2018-07-05 11:29:00* Test Item Value Reference Range Interpretation Comme [facility] T-helper cells (CD4) as perc ent of blood lymphocytes (test code = 8123-2) 2.5 % 30.8-58.5 L [facility] HospitalT-helper cells (CD4) vmlhl9356-51-14 11:29:00* Test Item Value Reference Range Interpretation Comme [facility] T-helper cells (CD4) count ( test code = 94874-6) 15 /UL 359-1519 L [facility] HospitalHIV-1RNA, serum, by PCR, wbzdpqijbnyl5076-25-28 11:29:00 * Test Item Value Reference Range Interpretation Comme [facility] HIV-1RNA, serum, by PCR, quantitative (test code = 15313-2) 271633 /mL [facility] HospitalCD4/CD8 btkak5396-00-53 11:29:00* Test Item Value Reference Range Interpretation Comme [facility] CD4/CD8 ratio (test code = 72566) 0.04 (unknown unit) 0.92-3.72 L [facility] HospitalT-suppressor cells (CD8) as percent of blood lymphocytes 2018-07-05 11:29:00* Test Item Value Reference Range Interpretation Comme nts T-suppressor cells (CD8) as percent of blood lymphocytes (test code = 3517) 64.5 % 12.0-35.5 H [facility] Hospitalabsolute [id number] 11:29:00* Test Item Value Reference Range Interpretation Comme nts absolute CD8 (test code = 32459) 387 (unknown unit) 109-897 [facility] HospitalHIV-1RNA, serum, by PCR, vqbozmafboqv3787-59-75 11:29:00 * Test Item Value Reference Range Interpretation Comme nts HIV-1RNA, serum, by PCR, quantitative (test code = 48064) 255228 /mL [facility] HospitalCD4/CD8 lckye6665-62-54 11:29:00* Test Item Value Reference Range Interpretation Comme nts CD4/CD8 ratio (test code = 04350) 0.04 (unknown unit) 0.92-3.72 L [facility] HospitalT-suppressor cells (CD8) as percent of blood lymphocytes 2018-07-05 11:29:00* Test Item Value Reference Range Interpretation Comme nts T-suppressor cells (CD8) as percent of blood lymphocytes (test code = 3517) 64.5 % 12.0-35.5 [facility] [place] [id number] 11:29:00* Test Item Value Reference Range Interpretation Comme nts absolute CD8 (test code = 86473) 387 (unknown unit) 109-897 [facility] HospitalQuantiferon Gold TB blood test for tuberculosis screening 2017-12-03 13:15:00* Test Item Value Reference Range Interpretation Comme nts Quantiferon Gold TB blood te st for tuberculosis screening (test code = 40326-9) Negative Negative [facility] Hospitalerythrocyte (RBC) [id number] 13:09:00* Test Item Value Reference Range Interpretation Comme nts erythrocyte (RBC) count (iveth t code = 789-8) 3.85 X10E6/UL 3.77-5.28 [facility] HospitalNeisseria gonorrhoeae DNA nnzfl6830-84-10 14:10:00* Test Item Value Reference Range Interpretation Comme nts Neisseria gonorrhoeae DNA pr obe (test code = 59619-0) Negative Negative [facility] Healthchlamydia DNA rdetu7711-34-59 14:10:00* Test Item Value Reference Range Interpretation Comme nts chlamydia DNA probe (test co de = 07214-2) Negative Negative [facility] HospitalNeisseria gonorrhoeae DNA [id number] 14:10:00* Test Item Value Reference Range Interpretation Comme nts Neisseria gonorrhoeae DNA pr obe (test code = 85184-9) Negative Negative [facility] Hospitalrapid plasma reagin antibody, [id number] 12:50:00* Test Item Value Reference Range Interpretation Comme nts rapid plasma reagin antibody , serum (test code = 5291-0) Non Reactive Non Reactive [facility] Hospitalhepatitis C antibody, ovyry5773-59-22 12:50:00* Test Item Value Reference Range Interpretation Comme nts hepatitis C antibody, serum (test code = 5199-5) <0.1 0.0-0.9 [facility] Hospitalalanine aminotransferase (SGPT), ndele1122-12-27 12:50:00 * Test Item Value Reference Range Interpretation Comme nts alanine aminotransferase (SG PT), serum (test code = 1742-6) 12 1/L 0-32 [facility] Hospitalaspartate aminotransferase (SGOT), jtthf0236-79-29 12:50:00* Test Item Value Reference Range Interpretation Comme nts aspartate aminotransferase ( SGOT), serum (test code = 1920-8) 21 1/L 0-40 [facility] Hospitalalkaline phosphatase, diwdw4241-46-28 12:50:00* Test Item Value Reference Range Interpretation Comme nts alkaline phosphatase, serum (test code = 1783-0) 61 1/L 39-117 [facility] Hospitalbilirubin, serum, aanej5781-99-48 12:50:00* Test Item Value Reference Range Interpretation Comme nts bilirubin, serum, total (iveth t code = 1975-2) 0.2 mg/dL 0.0-1.2 [facility] Hospitalalbumin/globulin ratio, [id number] 12:50:00* Test Item Value Reference Range Interpretation Comme nts albumin/globulin ratio, serum (test code = 1759-0) 1.3 (unknown unit) 1.2-2.2 [facility] Healthglobulin, [id number] 12:50:00* Test Item Value Reference Range Interpretation Comme nts globulin, serum (test code = 2336-6) 3.5 (unknown unit) 1.5-4.5 [facility] Healthalbumin, [id number] 12:50:00* Test Item Value Reference Range Interpretation Comme nts albumin, serum (test code = 1751-7) 4.4 g/dL 3.5-5.5 [facility] Healthprotein, total, [id number] 12:50:00* Test Item Value Reference Range Interpretation Comme nts protein, total, serum (test code = 2885-2) 7.9 g/dL 6.0-8.5 [facility] Healthcalcium, yhyqk7859-78-88 12:50:00* Test Item Value Reference Range Interpretation Comme nts calcium, serum (test code = 2000-8) 9.5 mg/dL 8.7-10.2 [facility] Hospitalcarbon dioxide, venous [id number] 12:50:00* Test Item Value Reference Range Interpretation Comme nts carbon dioxide, venous blood (test code = 2027-1) 23 mmol/L 20-29 [facility] Healthchloride, vxtzn5502-16-39 12:50:00* Test Item Value Reference Range Interpretation Comme nts chloride, serum (test code = 2075-0) 99 mmol/L 96-106 [facility] Healthpotassium, swhht2262-52-92 12:50:00* Test Item Value Reference Range Interpretation Comme nts potassium, serum (test code = 2823-3) 4.1 mmol/L 3.5-5.2 [facility] Healthsodium, [id number] 12:50:00* Test Item Value Reference Range Interpretation Comme nts sodium, serum (test code = 2951-2) 143 mmol/L 134-144 [facility] Healthurea nitrogen/creatinine ratio, tnotw1145-44-87 12:50:00 * Test Item Value Reference Range Interpretation Comme nts urea nitrogen/creatinine ratio, serum (test code = 3097-3) 8 (unknown unit) 9-23 L [facility] HealtheGFR if Swzynokg1019-07-00 12:50:00* Test Item Value Reference Range Interpretation Comme nts eGFR if (test code = 34535-1) 129 mL/min/{1.73 m2} >59 [facility] HospitalEstimated Glomerular Filtration Rate (calc)2017-11-17 12:50:00* Test Item Value Reference Range Interpretation Comme nts Estimated Glomerular Filtration Rate (calc) (test code = 78964-2) 112 mL/min/{1.73 m2} >59 [facility] Hospitalcreatinine, [id number] 12:50:00* Test Item Value Reference Range Interpretation Comme nts creatinine, serum (test code = 2160-0) 0.71 mg/dL 0.57-1.00 [facility]urea nitrogen, ocezm2991-00-67 12:50:00* Test Item Value Reference Range Interpretation Comme nts urea nitrogen, blood (test c ode = 3094-0) 6 mg/dL 6-20 [facility]blood glucose, ddovkk6779-37-11 12:50:00* Test Item Value Reference Range Interpretation Comme nts blood glucose, random (test code = 2339-0) 85 mg/dL 65-99 [facility] Hospitalimmature granulocytes, percentage of total cells, blood 2017-11-17 12:50:00* Test Item Value Reference Range Interpretation Comme nts immature granulocytes, perce ntage of total cells, blood (test code = 88548-2) 0 % [facility] Hospitalbasophil count, tzblcmpe2707-44-02 12:50:00* Test Item Value Reference Range Interpretation Comme nts basophil count, absolute (te st code = 33035-2) 0.0 x10E3/uL 0.0-0.2 [facility] HospitalEosinophil Absolute Hbpel2974-73-54 12:50:00* Test Item Value Reference Range Interpretation Comme nts Eosinophil Absolute Count (t est code = 10673-4) 0.3 X10E3/UL 0.0-0.4 [facility] Hospitalmonocyte count, blood, jtjxpyiwo3771-45-45 12:50:00* Test Item Value Reference Range Interpretation Comme nts monocyte count, blood, autom ated (test code = 742-7) 0.4 X10E3/UL 0.1-0.9 [facility] Hospitallymphocyte count, blood, jfnbdvjbm8343-78-93 12:50:00* Test Item Value Reference Range Interpretation Comme nts lymphocyte count, blood, automated (test code = 731-0) 0.7 X10E3/UL 0.7-3.1 [facility] HealthAbsolute Whnmqeoskkg9550-59-29 12:50:00* Test Item Value Reference Range Interpretation Comme nts Absolute Neutrophils (test c ode = 56143-1) 2.9 X10E3/UL 1.4-7.0 [facility] Hospitalbasophils as percent of blood sulakhuhsw0725-39-47 12:50:00* Test Item Value Reference Range Interpretation Comme nts basophils as percent of bloo d leukocytes (test code = 707-0) 0 % [facility] Hospitaleosinophils as percent of blood ldoqamfvug1061-01-67 12:50:00* Test Item Value Reference Range Interpretation Comme nts eosinophils as percent of bl ood leukocytes (test code = 713-8) 6 % [facility] Hospitalmonocytes as percent of blood xuuorrkvlt5727-15-12 12:50:00* Test Item Value Reference Range Interpretation Comme nts monocytes as percent of bloo d leukocytes (test code = 5905-5) 9 % [facility] Hospitallymphocytes as percent of blood egycjjezcd9621-46-00 12:50:00* Test Item Value Reference Range Interpretation Comme nts lymphocytes as percent of bl ood leukocytes (test code = 736-9) 16 % [facility] Hospitalneutrophils as percent of blood ahmaaetohm9653-29-76 12:50:00* Test Item Value Reference Range Interpretation Comme nts neutrophils as percent of bl ood leukocytes (test code = 770-8) 69 % [facility] Hospitalplatelet isxkz1274-77-88 12:50:00* Test Item Value Reference Range Interpretation Comme nts platelet count (test code = 777-3) 213 X10E3/UL 150-379 [facility]red blood cell distribution xefxy3387-87-03 12:50:00* Test Item Value Reference Range Interpretation Comme nts red blood cell distribution width (test code = 788-0) 14.6 % 12.3-15.4 [facility] corpuscular hemoglobin concentration, [id number] 12:50:00* Test Item Value Reference Range Interpretation Comme [facility] mean corpuscular hemoglobin concentration, RBC (test code = 786-4) 33.1 G/DL 31.5-35.7 [facility] corpuscular hemoglobin, [id number] 12:50:00* Test Item Value Reference Range Interpretation Comme [facility] mean corpuscular hemoglobin, RBC (test code = 785-6) 28.7 pg 26.6-33.0 [facility] corpuscular volume, [id number] 12:50:00* Test Item Value Reference Range Interpretation Comme [facility] mean corpuscular volume, RBC (test code = 787-2) 87 fL 79-97 [facility]hematocrit, scdsr9481-60-28 12:50:00* Test Item Value Reference Range Interpretation Comme [facility] hematocrit, blood (test code = 4544-3) 35.3 % 34.0-46. 6 [facility]hemoglobin, fdpzb2723-89-06 12:50:00* Test Item Value Reference Range Interpretation Comme [facility] hemoglobin, blood (test code = 718-7) 11.7 g/dL 11.1-15.9 [facility] Hospitalerythrocyte (RBC) yxody5192-39-49 12:50:00* Test Item Value Reference Range Interpretation Comme [facility] erythrocyte (RBC) count (iveth t code = 789-8) 4.07 X10E6/UL 3.77-5.28 [facility] Hospitalleukocyte count, usjil4468-78-94 12:50:00* Test Item Value Reference Range Interpretation Comme [facility] leukocyte count, blood (test code = 6690-2) 4.1 X10E3/UL 3.4-10.8 [facility] HospitalT-helper cells (CD4) as percent of blood lymphocytes 2017-11-17 12:50:00* Test Item Value Reference Range Interpretation Comme [facility] T-helper cells (CD4) as perc ent of blood lymphocytes (test code = 8123-2) 3.4 % 30.8-58.5 L [facility] HospitalT-helper cells (CD4) oeltl1819-92-48 12:50:00* Test Item Value Reference Range Interpretation Comme nts T-helper cells (CD4) count ( test code = 24672-2) 24 /UL 359-1519 [facility], vnyqj9866-70-01 12:50:00* Test Item Value Reference Range Interpretation Comme nts hepatitis A antibody, total (test code = 84023-3) Positive Negative A [facility] Healthhepatitis B core antibody, phczt6028-37-99 12:50:00* Test Item Value Reference Range Interpretation Comme nts hepatitis B core antibody, t otal (test code = 88255-2) Negative Negative [facility] Healthhepatitis B surface jyjrdtf2477-74-92 12:50:00* Test Item Value Reference Range Interpretation Comme nts hepatitis B surface antigen (test code = 54400-1) Negative Negative [facility] Healthhepatitis C antibody, slujb3290-44-20 12:50:00* Test Item Value Reference Range Interpretation Comme nts hepatitis C antibody, serum (test code = 30668-9) <0.1 0.0-0.9 [facility] HealthHIV-2 antibodies, western mbet8858-20-06 12:50:00* Test Item Value Reference Range Interpretation Comme nts HIV-2 antibodies, western bl ot (test code = 06719-7) Negative Negative [facility] HealthHIV-1/HIV-2 Ab, pflyn5883-13-04 12:50:00* Test Item Value Reference Range Interpretation Comme nts HIV-1/HIV-2 Ab, serum (test code = 22543-1) Positive Negative A [facility] HealthHIV-CMIA (Chemiluminescent Microparticle Immuno Assay) 2017-11-17 12:50:00* Test Item Value Reference Range Interpretation Comme nts HIV-CMIA (Chemiluminescent Microparticle Immuno Assay) (test code = 45164-6) Reactive Non Reactive [facility] [id number] 12:50:00* Test Item Value Reference Range Interpretation Comme nts human leukocyte antigen B57 (test code = 881947) Negative [facility] Hospitaltoxoplasma gondii antibody, [id number] 12:50:00* Test Item Value Reference Range Interpretation Comme nts toxoplasma gondii antibody, IgG (test code = 5389-2) <3.0 0.0-7.1 [facility] Hospitalhepatitis B surface dsmexkzl7467-58-33 12:50:00* Test Item Value Reference Range Interpretation Comme nts hepatitis B surface antibody (test code = 75041-9) Non Reactive [facility] HospitalHIV-1RNA, serum, by PCR, aczfsgxeqauz1284-44-98 12:50:00 * Test Item Value Reference Range Interpretation Comme nts HIV-1RNA, serum, by PCR, quantitative (test code = 71076-8) 401899 /mL [facility] HospitalCD4/CD8 wsheg7606-20-20 12:50:00* Test Item Value Reference Range Interpretation Comme nts CD4/CD8 ratio (test code = 38458) 0.05 (unknown unit) 0.92-3.72 L [facility] HospitalT-suppressor cells (CD8) as percent of blood lymphocytes 2017-11-17 12:50:00* Test Item Value Reference Range Interpretation Comme nts T-suppressor cells (CD8) as percent of blood lymphocytes (test code = 3517) 70.5 % 12.0-35.5 H [facility] Healthabsolute [id number] 12:50:00* Test Item Value Reference Range Interpretation Comme nts absolute CD8 (test code = 49663) 494 (unknown unit) 109-897 [facility] Hospitalhepatitis A antibody, oehcb2784-70-21 12:50:00* Test Item Value Reference Range Interpretation Comme nts hepatitis A antibody, total (test code = 75) Positive Negative A [facility]hepatitis B core antibody, joktf9960-16-09 12:50:00* Test Item Value Reference Range Interpretation Comme nts hepatitis B core antibody, t otal (test code = 77) Negative Negative [facility]hepatitis B surface mxbbcnp6163-79-35 12:50:00* Test Item Value Reference Range Interpretation Comme nts hepatitis B surface antigen (test code = 79) Negative Negative [facility] HospitalHIV-2 antibodies, western lemf2483-73-63 12:50:00* Test Item Value Reference Range Interpretation Comme nts HIV-2 antibodies, western bl ot (test code = 37443) Negative Negative [facility] HospitalHIV-1/HIV-2 Ab, [id number] 12:50:00* Test Item Value Reference Range Interpretation Comme nts HIV-1/HIV-2 Ab, serum (test code = 3399) Positive Negative A [facility] HospitalHIV-CMIA (Chemiluminescent Microparticle Immuno Assay) 2017-11-17 12:50:00* Test Item Value Reference Range Interpretation Comme nts HIV-CMIA (Chemiluminescent Microparticle Immuno Assay) (test code = 564775) Reactive Non Reactive A [facility]human leukocyte antigen [id number] 12:50:00* Test Item Value Reference Range Interpretation Comme nts human leukocyte antigen B57 (test code = 122556) Negative [facility] Hospitaltoxoplasma gondii antibody, JzC7038-96-42 12:50:00* Test Item Value Reference Range Interpretation Comme nts toxoplasma gondii antibody, IgG (test code = 2430) <3.0 0.0-7.1 [facility] Hospitalhepatitis B surface gehswvzf2654-03-06 12:50:00* Test Item Value Reference Range Interpretation Comme nts hepatitis B surface antibody (test code = 78) Non Reactive [facility] HospitalHIV-1RNA, serum, by PCR, aoxzuhuthyza7138-97-20 12:50:00 * Test Item Value Reference Range Interpretation Comme nts HIV-1RNA, serum, by PCR, quantitative (test code = 21702) 431702 /mL Critical [facility] HospitalCD4/CD8 ylvki7792-22-22 12:50:00* Test Item Value Reference Range Interpretation Comme nts CD4/CD8 ratio (test code = 89231) 0.05 (unknown unit) 0.92-3.72 L Critical Access HospitalT-suppressor cells (CD8) as percent of blood lymphocytes 2017-11-17 12:50:00* Test Item Value Reference Range Interpretation Comme nts T-suppressor cells (CD8) as percent of blood lymphocytes (test code = 3517) 70.5 % 12.0-35.5 H [facility] Hospitalabsolute AO45946-40-58 12:50:00* Test Item Value Reference Range Interpretation Comme nts absolute CD8 (test code = 76186) 494 (unknown unit) 109-897 [facility] Notes Date/Time Note Provider Source 2023-03-15 11:17:00 [id number]/ 7iHPsBddtzYxEmpgz1D8Zfw5+TCSL HfANS9iFKxkOTKmyr9gvFtFaoLI8005-77-25L36:17:434[address] -[address] [address] [address] [place], [place] [address] PATIENT NAME: ADEEL EDL TORO ADMIT DATE: 03/08/23ACCOUNT NO: [id number] DISCHARGE DATE: 03/09/23MEDICAL RECORD NO: [id number] ROOM NO: E.412 REPORT TYPE: 360 - QUERY RESPONSE DOCUMENT DATE OF : [birth year] AGE: 37 SEX: F ADMITTING PHYSICIAN:Margareth Martinez MD ATTENDING PHYSICIAN:Margareth Martinez MD Provider Query QUERY TEXT: Relationship Diagnoses General 360MD Query related questions should be directed to: [facility] Coding Query Helpline Please clarify the relationship, if any, between [acute cystitis] and [HIV/ AIDS]. The patient's Clinical Indicators include:Medical Reason: SEPSIS,UTI,HIV - OE order 03/08/2023Reason for Hospitalization -Sepsis, UTI - ED PHYSICIAN RECORD 03/06/2023ystitis -IV Rocephin - Hospitalist History and Physical 03/07/2023HIV -Advise pt f/u with HIV clinic - Hospitalist History and Physical 03/07/2023ischarge diagnosis: acute cystitis - Hospitalist Discharge Summary 03/09/2023Human immunodeficiency virus/acquired immunodeficiency syndrome - CONSULTATION REPORT 03/08/2023Options provided:-- Yes-- No-- Other - I will add my own diagnosis-- Dismiss - Not applicable / Not valid-- Dismiss - Clinically unable to determine / Unknown-- Assign to another provider QUERY RESPONSE: No, I am not in agreement with the cause/effect relationship between the diagnosis documented above. Query created by: MAYELA KIM on 03/14/2023 9:38 PM at 1117 PATIENT NAME: ADEEL DEL TORO noteE.[id number] for patient xnzbLEIOBKUSVHSFAR3379-11-19I44:17:39 [facility] 2023-03-14 12:53:00 [id number] BkZN+vlzFNzxXQVkIhKer715RjuaT 1QuubPfACTCn6xplbKM3cUJqdaN3940-86-42K64:53:11319 1-[address] [address] PATIENT NAME: ADEEL DEL TORO ADMIT DATE: 03/08/23ACCOUNT NO: [id number] DISCHARGE DATE: 03/09/23MEDICAL RECORD NO: [id number] ROOM NO: E.412 REPORT TYPE: 360 - QUERY RESPONSE DOCUMENT DATE OF : [birth year] AGE: 37 SEX: F ADMITTING PHYSICIAN:Margareth Martinez MD ATTENDING PHYSICIAN:Margareth Martinez MD Provider Query QUERY TEXT: Condition General 360MD Query related questions should be directed to: [facility] Coding Query Helpline Based on your medical judgment, can you please clarify if Sepsis was confirmed, Sepsis not confirmed, or other more appropriate diagnosis? The patient's Clinical Indicators include:Medical Reason: SEPSIS,UTI,HIV - OE order 03/08/2023rimary Impression: Sepsis - ED PHYSICIAN RECORD 03/06/2023Reason for Hospitalization -Sepsis, UTI - ED PHYSICIAN RECORD 03/06/2023ystitis -IV Rocephin - Hospitalist History and Physical 03/07/2023URI -PO steroids - Hospitalist History and Physical 03/07/2023low-grade fever on arrival - Hospitalist History and Physical 03/07/2023Urine culture has come back positive with 100,000 colonies of ESBL positive E. coli - CONSULTATION REPORT 03/08/2023/P 111/73 03/06 2308 - ED PHYSICIAN RECORD 03/06/2023ulse 100 03/06 2308- ED PHYSICIAN RECORD 03/06/2023WHITE BLOOD CELL (K/mm3) 5.3 4.4L 8.4 - Laboratory Results Options provided:-- Respond - Create new note now-- Dismiss - Not applicable / Not valid-- Dismiss - Clinically unable to determine / Unknown-- Assign to another provider QUERY RESPONSE: No sepsis Query created by: MAYELA KIM on 03/11/2023 3:25 AM at 1253 PATIENT NAME: ADEEL DEL TORO noteE.[id number] for patient ehxpDSQCMMMZOIFIIF2282-63-75G59:53:40 [facility] 2023-03-14 12:53:00 [id number] DIuxkUQt4o/avo9rJXHyhw731dky3 kMiIMU72C5Rfo+wF2gMUsp3T8k/2965-48-85L69:53:06495 1-[address] [place] [address] PATIENT NAME: ADEEL DEL TORO ADMIT DATE: 03/08/23ACCOUNT NO: [id number] DISCHARGE DATE: 03/09/23MEDICAL RECORD NO: [id number] ROOM NO: E.412 REPORT TYPE: 360 - QUERY RESPONSE DOCUMENT DATE OF : [birth year] AGE: 37 SEX: F ADMITTING PHYSICIAN:Margareth Martinez MD ATTENDING PHYSICIAN:Margareth Martinez MD Provider Query QUERY TEXT: Condition General 360MD Query related questions should be directed to: [facility] Coding Query Helpline Based on your medical judgment, can you please clarify if Pneumonia was confirmed, Pneumonia not confirmed, or other more appropriate diagnosis? The patient's Clinical Indicators include:Medical Reason: SEPSIS,UTI,HIV - OE order 03/08/2023neumonia could not be ruled out - CONSULTATION REPORT 03/08/2023started on IV antibiotics - ED PHYSICIAN RECORD 03/06/2023URI -PO steroids - Hospitalist History and Physical 03/07/2023started developing cough and runny nose - ED PHYSICIAN RECORD 03/06/2023low-grade fever on arrival - Hospitalist History and Physical 03/07/2023 Options provided:-- Respond - Create new note now-- Dismiss - Not applicable / Not valid-- Dismiss - Clinically unable to determine / Unknown-- Assign to another provider QUERY RESPONSE: Acute bronchitis Query created by: MAYELA KIM on 03/11/2023 3:26 AM at 1253 PATIENT NAME: ADEEL DEL TORO noteE.[id number] for patient fekwWRFCPDPFGAKOPO3096-78-23A21:53:40 [facility] 2023-03-09 10:21:00 [id number] 7jKH7bc6a8EN5FUfoMOpHaEKbrEVt xadq1BmvbbrWewtdQIw6X/IPqjk8552-32-72V75:21:00 [facility] ([facility]ospitalist Discharge SummaryREPORT#:[id number] REPORT STATUS: SignedREPORT INITIALIZATION DATE:03/09/23 TIME: 102 PATIENT: ADEEL DEL TORO UNIT #: [id number]#: [id number] [address] [birth year] AGE: 37 SEX: F ATTEND: Margareth Martinez MDA AUTHOR: Tomasa Solo MDREPT SERVICE DT/TIME: 03/09/23 1021* ALL edits or amendments must be made on the electronic/computer document * General InformationDischarge date: 03/09/23Discharge diagnosis:acute cystitis Hospital course:Cystitis-IV Rocephin-GNR, follow C/S-PO abx a DCESBL urine. Switch to Merrem I. COnsult ID for length of tx in this immunocomprized pt. URI-PO steroids-PRN nebs Hyponatremia-Lab in am Polysubstance abuse-Cessation advisded HIV-Advise pt f/u with HIV clinic SOunds and looks better, pt wants to DC home. unable to DC given ESBL and need o IV abx.Allergies:Allergies:No Known Allergies (Coded, 03/06/23) Med Rec Med RecDischarge meds:Continue taking these medications:traMADol (ULTRAM) 50 MG TAB 50-100 MILLIGRAM ORAL EVERY 4 HOURS NEEDED. as needed for PAIN Qty = 30 Instructions: Jason Best: [id number] Bictegrav/Emtricit/Tenofov Ala (Biktarvy 50-200-25 MG Tablet) 50 MG-200 MG-25 MGTAB 1 TABLET ORAL DAILY. Start taking the following new medications:AMOXICILLIN/CLAV K (AUGMENTIN 875/125 MG) 875 MG-125 MG TAB 875 MILLIGRAM ORAL EVERY 12 HOURS. Qty = 14 No Refills ObjectiveVS/I OLast Documented: Result Date Time Pulse Ox 99 03/09 832 O2 Delivery Room air 03/09 832 B/P 115/78 03/09 707 B/P Mean 90.8 03/09 707 Temp 36.7 03/09 707 Pulse 71 03/09 707 Resp 17 03/09 707 FiO2 21 03/08 0935 O2 Flow Rate 0 03/08 0935 ResultsFindings/Data:Laboratory Tests: 03/09 116 Chemistry Sodium (134.0 - 147.0 mmol/l) 137 Potassium (3.6 - 5.2 mmol/L) 4.3 Chloride (98.0 - 107.0 mmol/l) 105 Carbon Dioxide (21.0 - 33.0 mmol/l) 22.3 Anion Gap (0 - 20) 14.0 BUN (7.0 - 18.0 mg/dl) 14 Creatinine (0.60 - 1.30 mg/dL) 0.94 Estimated Creat Clear (>30 mL/min) 73 Glomerular Filtr Rate (mL/min) 80 Glucose (70.0 - 110.0 mg/dl) 120 H Calcium (8.0 - 10.5 mg/dl) 8.9 Total Bilirubin (0.0 - 1.0 mg/dl) 0.1 AST (15 - 37 Units/L) 20 ALT (12.0 - 78.0 Units/L) 22 Total Alk Phosphatase (50.0 - 136.0 Units/L) 52 Total Protein (6.0 - 8.1 GM/DL) 7.3 Albumin (3.2 - 4.7 gm/dL) 2.9 L Hematology WBC (4.5 - 11.0 K/mm3) 5.3 RBC (3.80 - 5.20 M/mm3) 3.67 L Hgb (12.0 - 16.0 gm/dL) 10.8 L Hct (36.0 - 48.0 %) 33.6 L MCV (82.0 - 99.0 UM3) 91.6 MCH (25.5 - 32.5 UUG) 29.4 MCHC (29.0 - 35.5 gm/dL) 32.1 RDW (11.5 - 15.0 %) 15.8 H Plt Count (150 - 400 K/mm3) 177 MPV (7.4 - 10.4 fl) 10.2 Neut % (Auto) (49.0 - 76.0 %) 78.5 H Lymph % (Auto) (23.0 - 38.0 %) 9.6 L Zavala % (Auto) (1.0 - 10.0 %) 11.3 H Eos % (Auto) (1.0 - 5.0 %) 0.0 L Baso % (Auto) (0.0 - 1.0 %) 0.2 Neut # (Auto) (2.4 - 6.3 K/mm3) 4.2 Lymph # (Auto) (1.2 - 4.0 K/mm3) 0.5 L Zavala # (Auto) (0.0 - 0.6 K/mm3) 0.6 Eos # (Auto) (0.0 - 0.7 K/MM3) 0.0 Baso # (Auto) (0.0 - 0.2 K/mm3) 0.0 Absolute Nucleated RBC (0.00 - 0.01 X10 3uL) 0.00 Immature Gran % (0.0 - 0.4 %) 0.4 Nucleated RBC % (0.0 - 0.1 %) 0.0 Immature Gran # (0.00 - 0.07 x10 3/uL) 0.02 Free Text Obj NotesFree Text Obj Notes:Physical Exam:General appearance: alert, awake, oriented, no acute distress, pleasant, no respiratory distressHead/Eyes: atraumatic, EOMI, normocephalicENT: moist mucosal membranes, normal nose, normal sinusNeck: non-tender, no JVD, no masses or swellingCardiovascular: normal heart sounds, regular rate rhythm, no murmurRespiratory: aerating well, clear to auscultation, symmetric expansion, no distressAbdomen: non-tender, normal bowel sounds, soft, no distentionExtremities: moves all, no calf tenderness, no edemaMusculoskeletal: no CVA tenderness, no midline vertebral tend, no muscle spasmNeuro/JAVA CONSULTANT: alert, oriented X 3, CNII-XII intactSkin: dry, intact, no rashPsychiatry: normal affect, normal mood Discharge Instructions PCPPCP follow-up:PCP: No Primary or Family Physician Discharge to: Home/Self CareAdditional Discharge Routines: PCP Follow-UpDiet: Resume Home Diet/FeedsActivity: Resume Normal ActivityDischarge management: greater than 30 mins, face to face encounter Follow-up AppointmentsPCP follow-up: PCP: No Primary or Family Physician PCP follow up timeframe: In 1-2 weeks at [address] [facility] #:[id number] OF REPORTDSDischarge ivpjtva2682-41-62M78:21:00E.IWYJ75594249-3674LDCd ailable for patient nfuxLYVBNZGADRYWDO1370-70-35N87:22:28 [facility] 2023-03-08 22:38:00 [id number] Jv4XvdJ2XHDRMel+dA2RuQWnZs6oT x2NZOFKm75VIrX2pm5hwjWmoj4I7271-68-06J94:38:97663 6-[address] [place] [address] PATIENT NAME: ADEEL DEL TORO ADMIT DATE: 03/08/23ACCOUNT NO: [id number] DISCHARGE DATE: 03/09/23MEDICAL RECORD NO: [id number] ROOM NO: E.412 REPORT TYPE: CONSULTATION REPORT DATE OF : [birth year] AGE: 37 SEX: F ADMITTING PHYSICIAN:Margareth Martinez MD ATTENDING PHYSICIAN:Margareth Martinez MD CONSULTATION DATE: 03/08/2023 INFECTIOUS DISEASE CONSULTATION ATTENDING PHYSICIAN: Margareth Martinez MD CONSULTING PHYSICIAN: Thania Proctor MD REASON FOR CONSULTATION:1. HIV/AIDS.2. Urinary tract infection secondary to ESBL positive organism.3. Pneumonia could not be ruled out. Thank you so much Mr. Sun for asking me to see this patient. HISTORY OF PRESENT ILLNESS: This is a pleasant 37-year-old female with eventfulpast medical history who was a very good source of history. It is to be noted that the patient for the last 1 week or so has been having weakness, lethargy, element of fevers, recent chills and rigors, body aches, was not exposed to anybody sick at home, and has not traveled anywhere outside [place]. It is to be noted that the patient has a longstanding history of HIV/AIDS, not following medical advice and treatment on regular basis. Denies any HIV related infections, except for the thrush. It is to be noted that the patient is havingsome urinary issues in the form of dysuria. Urine culture has come back positive with ESBL positive organism. I have been asked to examine the patient and to come forward with recommendations regarding Infectious Disease point of view. PAST MEDICAL HISTORY:1. History of advanced HIV/AIDS.2. Noncompliant with medication and treatment.3. Possible recurrent urinary tract infections.4. Polysubstance abuse. ALLERGIES: PER HPI. FAMILY HISTORY: Noncontributory. SOCIAL AND PERSONAL HISTORY: Polysubstance abuse/tobacco abuse. ALLERGIES: PER HPI. REVIEW OF SYSTEMS: Beside the above, none. PATIENT NAME: ADEEL DEL TORO PHYSICAL EXAMINATION:GENERAL: At the time of examination, the patient was in the bed, does not seemto be in pain.VITAL SIGNS: Stable. Temperature is normal.HEENT: Atraumatic, normocephalic. Pupils are equal and reactive light, nonictericNECK: Supple. No thyromegaly. No cervical lymphadenopathy. No JVP.CHEST: Harsh vesicular breathing. No crepitation or rhonchi.CARDIOVASCULAR: S1 and S2 audible. No murmur or gallop audible.ABDOMEN: Soft. No tenderness on superficial or deep palpation. No visceromegaly. Bowel sounds are audible.CENTRAL NERVOUS SYSTEM: Grossly within normal limits. LABORATORY DATA: Investigations showed WBCs of 4.4, hemoglobin 10.7, aamgecetux69.9, and platelets of 157. Sodium 133, potassium 3.7, chloride 101, bicarbonate 23.5, BUN 7, creatinine of 0.83. LFTs are almost within normal limit. Toxicology screen was positive for multiple polysubstance abuse. Urine culture has come back positive with 100,000 colonies of ESBL positive E. coli. Blood cultures have been negative. IMAGING STUDIES: The CT of the abdomen and pelvis, which was done, was unremarkable at this point of time. X-ray of the chest unremarkable. ASSESSMENT AND PLAN: At that time is,1. Human immunodeficiency virus/acquired immunodeficiency syndrome.2. Noncompliant with the medications and treatment.3. Continue with the present antibiotic of meropenem.4. CD4 count.5. RPR.6. Consider discharge on the patient with the instructions and advised to follow with HIV Clinic on regular basis to avoid serious complications from HIV/AIDS.7. We will consider discharging the patient on by mouth fosfomycin x1 to be repeated after 72 hours times 1.8. Case discussed with the patient in detail in the presence of the fish processing supervisor nurse.9. Prognosis. The patient remains guarded. Dictated By: Thania Proctor MD Date Dictated: 03/08/2023 22:38:53Date Transcribed: 03/08/2023 23:34:23TRESSA/ROCKY/Tabby #: [id number] ID: [id number] by Thania Proctor MD On 03/23/2023 09:37:25 PM at 0937 PATIENT NAME: ADEEL DEL TORO :34:00E.W[place] [id number] for patient olddMJKESGXGMFPMYQ3499-17-52D73:37:57 [facility] 2023-03-08 14:09:00 [id number]+ilvklb/ p+Hz+ZkB4jeJ5VN0jJnW3olob9h08 blExnyem3xDxPD5djOoIGAuskBy7868-35-36N77:09:00 [facility] ([facility])Infect Dis Consult Note_ BriefREPORT#:[id number] REPORT STATUS: SignedREPORT INITIALIZATION DATE:03/08/23 TIME: 1409 PATIENT: ADEEL DEL TORO UNIT #: [id number]#: [id number] ROOM/BED: [facility]-1DOB: [birth year] AGE: 37 SEX: F ATTEND: Margareth Martinez [facility] AUTHOR: Thania Proctor MDREPT SERVICE DT/TIME: 03/08/23 1409* ALL edits or amendments must be made on the electronic/computer document * History - Adult longitudinalAdditional medical history:HIV, AIDS PTSD, anxietyAdditional family history:HTNAlcohol use: Alcohol useDrug use: MarijuanaSmoking status for patients 13 years old or older: Current some day smokerDate last smoked: 02/28/23Years smoked: 1Pack years: 0Allergies:Coded Allergies:No Known Allergies (03/06/23) at 2133 RPT #:[id number] OF REPORTZXZzlvdsmwjixd5303-64-54X31:09:00E.PDOC2 [id number] for patient ntuqSEPNXCWGRWTLAT2733-10-29K19:33:56 [facility] 2023-03-08 13:01:00 [id number] l538m0vwlaKg/XEP24NPSaYP5Jeu8 U8ldIqjl6jxoab106E25RUrE5/i4330-42-47X56:01:00 [facility] Progress NoteREPORT#:[id number] REPORT STATUS: SignedREPORT INITIALIZATION DATE:03/08/23 TIME: 1301 PATIENT: ADEEL DEL OTRO UNIT #: [id number]#: [id number] ROOM/BED: [facility]-1DOB: [birth year] AGE: 37 SEX: F ATTEND: Margareth Martinez MDA AUTHOR: [place] Sun PAREPT SERVICE DT/TIME: 03/08/23 1301* ALL edits or amendments must be made on the electronic/computer document * SubjectiveChief complaint:SepsisCystitisCocaine, PCP and Marijuana abuseESBL urineHPI:Ms. Del Toro is a 37-year-old female came to the emergency room with complaints of upper respiratory symptoms as well as nausea vomiting and some diarrhea. Patient had a low-grade fever on arrival. Patient states she does have a history of HIV. Patient states symptoms been ongoing for the last couple days. Patient denies any fever or chills. No chest pain shortness of breath or diaphoresis. Blood pressure was 111/73 heart rate was 100 and she had a low-grade fever of 38.1 C. CBC was unremarkable, BMP showed a sodium 131, cjcnvfku05, BUN 5. Lactic acid was normal at 0.6. COVID was negative. Urinalysis was suggestive of infection with leukocyte esterase, too numerous to count white blood cells many bacteria. Patient's UDS was positive for PCP, cocaine, marijuana. Flu was negative. Blood cultures pending. Chest x-ray was negative. CT abdomen and pelvis was unremarkable. Patient was admitted she hasbeen seen examined and chart reviewed.Patient reports:Yes: feeling better, pain controlled, resting comfortably. No: abdominal pain, chest pain, chills, cough, diarrhea, dizziness, fever, headache, nausea, shortness of breath, vomiting. Review of Systems Free Text ROS NotesFree Text ROS Notes:Review of SystemsConstitutional:Denies: chills, fatigue, fever, generalized weakness, lethargy. Skin:Denies: abrasion, bruising, contusion. Allergy/Immun:Denies: anaphylaxis, hives, itching. Eyes:Denies: discharge, visual loss/blurred, itching. ENT:Denies: earache, hearing loss, mouth pain. Respiratory:CoughCardiovascular:Denies: CP, edema, orthopnea, palpitations. GI:NVDGU:DysuriaMusculoskeletal:Denies: arthritis, extremity pain, extremity swelling. Heme:Denies: bleeding, petechiae. Endocrine:Denies: heat intolerance, polydipsia, polyphagia. Neuro:Denies: change in LOC, confusion, dizziness. Psych:Denies: auditory hallucination, change in mental status, confusion. All systems rev neg: except as noted Objective GeneralVS/I O:Vital Signs: Date Time Temp Pulse Resp B/P B/P Pulse O2 O2 Flow FiO2 Mean Ox Delivery Rate 03/08 0935 100 Room air 0 21 03/07 2230 98 Room air 03/07 1509 99.7 94 17 112/73 86.1 99 PATIENT WEIGHT: Weight (lb): Weight (oz): Weight (kg): 61.900 Medications:Active Meds + DC'd Last 24 HrsCeftriaxone Sodium (cefTRIAXone 1,000 MG VIAL) 1,000 MG Q24H IV Sodium Chloride (SODIUM CHLORIDE 0.9% 10ML) 10 MLAlbuterol/Ipratropium (IPRATR-ALBUTEROL 0.5-3 MG/3 ML) 3 ML RTQ4H PRN PRN NEB Benzonatate (TESSALON PERLE) 100 MG TID PRN PRN PO Prednisone (predniSONE) 40 MG C BK PO Sodium Chloride (SODIUM CHLORIDE 0.9%) 1,000 ML .Q10H IV Acetaminophen (TYLENOL 325MG) 650 MG Q4H PRN PRN PO Ondansetron HCl (ZOFRAN 2ML) 4 MG Q6H PRN PRN IV ResultsFindings/Data:Laboratory Tests 03/08 0209 Chemistry Sodium (134.0 - 147.0 mmol/l) 133 L Potassium (3.6 - 5.2 mmol/L) 3.7 Chloride (98.0 - 107.0 mmol/l) 101 Carbon Dioxide (21.0 - 33.0 mmol/l) 23.5 Anion Gap (0 - 20) 12.2 BUN (7.0 -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
[2023-03-26 01:10] LABS: Absolute Lymphocytes (CBC) 0.4 K/uL (0.7-4.9); Hematocrit 34.9 % (36.0-45.0); Lymphocytes % 8.4 % (15.3-44.8); MCV 87.3 fL (80-100); MPV 8.8 fL (7.6-11.3); Platelets 171 thou/uL (152-406); RBC Red Blood Cell Count 3.99 M/uL (3.86-4.86)
[2023-03-26 01:16] LABS: Specific Gravity 1.023 (1.005-1.030)
[2023-03-26 01:26] LABS: Albumin 3.2 g/dL (3.4-5.0); Bilirubin Total 0.5 mg/dL (0.2-1.0); Potassium 3.4 mEq/L (3.5-5.1); Protein, Total 8.1 g/dL (6.4-8.2)
[2023-03-26 01:48] LABS: Specific Gravity 1.023 (1.005-1.030); Urine Bacteria >50 /HPF (<20); Urine Bilirubin NEGATIVE (Negative); Urine Blood 1+ (Negative); Urine Clarity Extremely Turbid (Clear); Urine Color Yellow (Yellow); Urine Glucose NEGATIVE (Negative); Urine Mucus 4+ /HPF (None Seen); Urine Protein 1+ (Negative); Urine Urobilinogen Normal (Normal); Urine pH 5.5 (5.0-7.0)
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
--- NOTE | 2023-03-26 02:24 | EDPHYS ---
Physician Documentation [facility] Name: Adeel Marshall Age: 37 yrs Sex: Female : 1985 Arrival Date: 03/26/2023 Time: 00:02 Bed 13 Private MD: ED Physician Nazario Kerns HPI: 03/26 04:22 This 37 yrs old Female presents to ER via EMS with complaints of Nausea/Vomiting. rt 04:22 Patient with history of HIV infection presents to the ED with nausea, vomiting. The rt patient denies any abdominal pain to me. She has reported burning with urination. She reports pain with swallowing. She denies other acute complaints. Patient was seen in the ED about a week ago, prescribed Compazine which she states did not improve her symptoms, but, she is, out of Compazine. Denies other acute complaints, symptoms are moderate severity, no other aggravating elevating factors.. Historical: - Allergies: 00:09 No Known Allergies; jb4 - PMHx: 00:09 ectopic ; HIV positive; PTSD; Psychosis; jb4 - Immunization history:: Adult Immunizations up to date. ROS: 04:22 Constitutional: Negative for fever, chills, and weight loss, ENT: Negative for injury, rt pain, and discharge, Cardiovascular: Negative for chest pain, palpitations, and edema, Respiratory: Negative for shortness of breath, cough, wheezing, and pleuritic chest pain, MS/Extremity: Negative for injury and deformity, Skin: Negative for injury, rash, and discoloration, Neuro: Negative for headache, weakness, numbness, tingling, and seizure, 04:22 Abdomen/GI: Positive for nausea and vomiting, Negative for abdominal pain, Exam: 04:22 Constitutional: This is a well developed, well nourished patient who is awake, alert, rt and in no acute distress. Head/Face: Normocephalic, atraumatic. Chest/axilla: Normal chest wall appearance and motion. Nontender with no deformity. No lesions are appreciated. Cardiovascular: Regular rate and rhythm with a normal S1 and S2. No gallops, murmurs, or rubs. Normal PMI, no JVD. No pulse deficits. Respiratory: Lungs have equal breath sounds bilaterally, clear to auscultation and percussion. No rales, rhonchi or wheezes noted. No increased work of breathing, no retractions or nasal flaring. Abdomen/GI: Soft, non-tender, with normal bowel sounds. No distension or tympany. No guarding or rebound. No evidence of tenderness throughout. Skin: Warm, dry with normal turgor. Normal color with no rashes, no lesions, and no evidence of cellulitis. MS/ Extremity: Pulses equal, no cyanosis. Neurovascular intact. Full, normal range of motion. Neuro: Awake and alert, GCS 15, oriented to person, place, time, and situation. Cranial nerves II-XII grossly intact. Motor strength 5/5 in all extremities. Sensory grossly intact. Cerebellar exam normal. Normal gait. Psych: Awake, alert, with orientation to person, place and time. Behavior, mood, and affect are within normal limits. 04:22 ENT: Moist mucous membranes, oral thrush noted. Vital Signs: 00:07 BP 133 / 85; Pulse 107; Resp 18; Temp 98.8(TE); Pulse Ox 99% on R/A; Weight 61.23 kg jb4 (R); Height 5 ft. 5 in. (R); 01:32 BP 115 / 83; Pulse 89; Resp 16; Pulse Ox 96% on R/A; jb4 00:07 Body Mass Index 22.46 (61.23 kg, 165.1 cm) jb4 MDM: 00:15 Patient medically screened. rt 04:22 Differential diagnosis: Pancreatitis, electro disturbance, renal dysfunction, rt gastroenteritis, abdominal pain, thrush. Data reviewed: vital signs, nurses notes, lab test result(s). I considered the following discharge prescriptions or medication management in the emergency department Medications were administered in the Emergency Department. See MAR. Test considered but Not performed: CT: Benign abdominal examination, region abdominal CT revealed no acute findings, stable labs. Do not believe that repeat imaging is indicated this time, patient is in agreement this plan.. Care significantly affected by the following chronic conditions: HIV. Counseling: I had a detailed discussion with the patient and/or guardian regarding the historical points, exam findings, and any diagnostic results supporting the discharge/admit diagnosis, lab results, the need for outpatient follow up, to return to the emergency department if symptoms worsen or persist or if there are any questions or concerns that arise at home. Response to treatment: the patient's symptoms have markedly improved after treatment. 03/26 00:23 Order name: CBC with Diff; Complete Time: : rt 03/26 00:23 Order name: CMP; Complete Time: rt 03/26 99:23 Order name: Lipase; Complete Time: rt 03/26 00:23 Order name: Test, Urine; Complete Time: : rt 03/26 00:23 Order name: Urinalysis w/ reflexes; Complete Time: rt 03/26 99:23 Order name: IV Saline Lock; Complete Time: rt 03/26 00:23 Order name: Labs collected and sent; Complete Time: : rt Administered Medications: : Drug: NS 0.9% IV 1000 ml IV at 1 bolus Per protocol; 1000 mL bolus Route: IV; Rate: 1 jb4 bolus; Site: right antecubital; : Drug: Ondansetron IVP 4 mg IVP once; over 2 minutes Route: IVP; Site: right antecubital;jb4 Disposition Summary: 03/26/23 02:23 Discharge Ordered Notes: Location: Home rt Problem: new rt Symptoms: have improved rt Condition: Stable rt Diagnosis - Nausea with vomiting, unspecified rt - Thrush rt - Urinary tract infection rt Followup: rt - With: Private Physician - When: 2 - 3 days - Reason: Discharge Instructions: - Discharge Summary Sheet rt - Nausea and Vomiting, Adult rt - Oral Thrush, Adult rt - Urinary Tract Infection, Adult rt Forms: - Medication Reconciliation Form rt - Thank You Letter rt - Antibiotic Education rt - Prescription Opioid Use rt - Patient Portal Instructions rt - Leadership Thank You Letter rt Prescriptions: - Compazine 10 mg Oral Tablet - take 1 tablet ORAL route every 8 hours As needed; 20 tablet; Refills: 0, rt Product Selection Permitted - Nystatin 100,000 unit/mL Oral Suspension - take 5 milliliters ORAL route every 8 hours for 6 days; 90 milliliter; Refills: rt 0, Product Selection Permitted - cefpodoxime 200 mg Oral tablet - take 1 tablet ORAL route every 12 hours with food; 14 tablet; Refills: 0, rt Product Selection Permitted Signatures: Dispatcher [employer] Dat Elena RN RN jb4 Nazario Kerns MD MD rt
[2023-03-26 09:59] VITALS: BP 115/83; TEMP 98.8; O2SAT 96
== END ==
LOC: ER 00:02
DX: N39.0 Urinary tract infection, site not specified (principal); B37.9 Candidiasis, unspecified; Z21 Asymptomatic human immunodeficiency virus [HIV] infection status
CPT/HCPCS: 85025; 81001; 36415; 81025; 83690; 80053; 96374; 99284; J2405; J7030

== ENCOUNTER → 2023-04-20 | Emergency (ER) | payer OTHER ==
[~2023-04-20] MED LIST changes: +ACETAMINOPHEN 500 MG TAB ONE; +CEFTRIAXONE 1000 MG/VIAL ONE; -NA CHLORIDE 0.9% 1,000 ML ONE; +NA CHLORIDE 0.9% 2,000 ML ONE; -ONDANSETRON 4 MG/2 ML VIAL ONE
--- OUTSIDE RECORDS SUMMARY | 2023-04-20 18:26 | XMS REPORT | Continuity of Care Document ---
Author Name Unknown Address [address] [facility] [address] [place] [address] [facility] thconnect Address [address] [facility]. [address] [place] [address] Support Name Relationship Address Phone Lata Kenny Sibling Unknown [phone] [address] [place] [address] NO, OTHER SA [address] [place] [address] RUTH JALLOH [address] [facility] [place] [address] Unavailable P [address] [place] [address] [phone] Healthcare Proxy, PLEASE STO P UPDATING!!! O PLEASE DO NOT MODIFY PLEASE DO NOT MODIFY Billing Purposes, Primary Caregiver, PLEASE STOP UPDATING!!! O PLEASE DO NOT MODIFY PLEASE DO NOT MODIFY Billing Purposes, Marcial Sampson Unknown Unavailable Adeel Del Toro O [address] [place] [address] Unavailable Legal Guardian, None O [address] [facility] [address] [place] [address] [phone] Lata Del Toro O [address] [place] [address] Unavailable Responsible Provider, Not Ye t Assigned O Unknown Unavailable Marcial Sqeueira V [address] [place] [address] [phone] Alysia Nicholson V [address] [place] [address] [phone] none3 O Unknown Unavailable None2 O Unknown Unavailable None1 O Unknown Unavailable (Legal Guardian), Shama O [address] [place] [address] Unavailable Joel Barnes V [address] [place] [address] [phone] Legal Guardian, PLEASE STOP UPDATING!!!! O PLEASE DO NOT MODIFY PLEASE DO NOT MODIFY Billing Purposes, Emergency Contact O PLEASE DO NOT MODIFY PLEASE DO NOT MODIFY Billing Purposes, Unavailable Care Team Providers Care Alteration Inspector Name Role Phone PCP, PATIENT DOES NOT HAVE A Primary Care Physic [place] Unavailable [email or web address] Attending Clinician Unavailable [email or web address] Attending Clinician Unavailable CHOCO GARCÍA Attending Clinician Unavailab CHOCO Taylor Attending Clinician Unavailab Margareth Hackett Attending Clinician UnaHermes Guy Attending Clinician Unavailabl e Joel Iraheta Attending Clinician Tacho Shay Attending Clinician Unavailable Alysia Nicholson Attending Clinician [phone] Wes Lino Attending Clinician Unavailable Tia Reeves Attending Clinician [phone] Dat Trujillo MD Attending Clinician Karol Baer LCSW Attending Clinician [phone] Arlene Thompson Attending Clinician Unavailable Bruce Barnes Attending Clinician Unavailable Pati Sapp Attending Clinician Unavailjosh Cazares MedAdherLuba noonan Attending Clinician U farrukh Paredes MedAdherence,, Ella Attending Clinician Un available Jennifer HOUSE, Janett Vance Attending Clinician Unavailab Felisa Dennison MD Attending Clinician + Yifan Bess MD Attending Clinician [phone] Karol Baer Attending Clinician [phone] Dori Thomas Attending Clinician UnavailDomo Stanton Attending Clinician Unavailable Madelyn Joseph Attending Clinician UnavailJohn Mieer Attending Clinician Unavailable Jennifer Portillo Attending Clinician Unavailable Maximus Mai Attending Clinicia n Unavailable Karen Smith Attending Clinician Unavailable Desktop, [facility] Attending Clinician Enrike Rabago Attending Clinician [phone] Ed Resendez Attending Clinician [phone] Provider, [facility] Attending Maurizio Calixto Attending Clinician Unavailable Kvng Nichole Attending Clinician Unavailable Dat Whitfield Attending Clinician [phone] Mai Hurst Attending Clinician Unavailable Parvin Dutta Attending Clinician [phone] Dia Jackson Attending Clinician UnavailConnie Welch Attending Clinician Unavailab Bridget Hernandez Attending Clinician [phone] Lynne Boogie Attending Clinician Unavailable Lisa Esparza Attending Clinician Unavailable Rosaline Valencia Attending Clinician [phone] Ilana Pisano Attending Clinician Unavaila Wes Garcia Attending Clinician Unavailable Margo Bolanos Attending Clinician Unavailab Any Black Attending Clinician Unavailable Jenifer Morrison Attending Clinician Unavailable Jihan Vargas Attending Clinician UnavailShantal Hyatt Attending Clinician Unavailable Marcial Sequeira Attending Clinician [phone] Álvaro Cruz Attending Clinician Unavailable Rebecca Anglin Attending Clinician Unavailable Ronda Vivar Attending Clinician Unavailable Paulie Burroughs Attending Clinician Unavailable Ana Romero Attending Clinician Unavailable Danette Giordano Attending Clinician Unavailab Sophie Allen Attending Clinician Unavailjosh pickering Physician, No Primary or Family Admitting Clinic [place] Unavailable VallabhajoMargareth العراقي Admitting Clinician Unav ailable Alysia Nicholson MD Unavailable Dat Trujillo MD Unavailable Marcial Christie Unavailable Sophie Villa MA Unavailable Unavailable Payers Payer Name Policy Type Policy Number Effective Date Expira tion Date Source Nazario Hagen 0- 100% P [id number] 2022 1 00:00:00 2022 00:00:00 Nazario White 0- 100% S [id number] 2022 1 00:00:00 2023 00:00:00 Nazario White 0- 100% O [id number] Nazario White 0- 100% P [id number] 2022 6 00:00:00 [facility] [id number] 2008 00:00:00 CARE HERE [id number] 2019 00:00:00 [facility] [id number] 00:00:00 Nazario Hagen 0- 100% 11 [id number] 1 00:00:00 2019 00:00:00 [facility] Nazario Hieu 0- 100% CI [id number] 1 00:00:00 2019 00:00:00 [facility] Problems Condition Name Condition Details Condition [...] 2018-03 00:00: 00 2021-02-13 11:00:20 Alysia Nicholson [facility] Adult Medicin e Trichomoni asis Condition Active 07-07 00:00: 00 2021-02-13 11:00:20 Marcial Sequeira [facility] Adult Medicin e Underweigh t Condition Active 12-02 00:00: 00 2021-02-13 11:00:20 Marcial Sequeira [facility] Adult Medicin e HIV infection Condition Active 11-17 00:00: 00 2021-02-13 11:00:19 Sophie Villa [facility] Adult Medicin e No known active problems No known active problems Disease [facility] [place] History of Past Illness Condition Name Condition Details Condition Category Status Onset Date Resolution Date Last Treatment Date Treating Clinician Comments Source Screening for tuberculos is Condition Inactiv e 2020-03 00:00: 00 2021-02-13 00:00:00 2021-02-13 11:03:52 Alysia Nicholson [facility] Adult Medicin e Std screening Condition Inactiv e 2020-03 00:00: 00 2021-02-13 00:00:00 2021-02-13 11:03:52 Alysia Nicholson [facility] Adult Medicin e AIDS Condition Inactiv e 12-02 00:00: 00 2019-01-19 00:00:00 2019-01-19 14:14:11 Alysia Nicholson [facility] Adult Medicin e Immunizati on update Condition Inactiv e 12-02 00:00: 00 2019-01-19 00:00:00 2019-01-19 14:14:11 Alysia Nicholson [facility] Adult Medicin e Pre-proced ural laboratory examinatio n Condition Inactiv e 11-17 00:00: 00 2019-01-19 00:00:00 2019-01-19 14:14:11 Alysia Nicholson [facility] Adult Medicin e Allergies, Adverse Reactions, Alerts Allergy Name Allergy Type Status Severity Reaction(s) Onset Date Inactive Date Treating Clinician Comments Source No Known Allergie s DA Active U 2022-03- 00:00: 00 [facility] No Known Allergie s DA Active U - 00:00: 00 [facility] No Known Allergie s DA Active U 2 00:00: 00 [facility] No Known Allergie s DA Active U 10-25 00:00: 00 [facility] No Known Allergie s DA Active U 10-25 00:00: 00 [facility] NO KNOWN ALLERGIE S Drug Class Active [facility] Social History Social Habit Start Date Stop Date Quantity Comments Source Exposure to SARS-CoV-2 (event) Not sure [facility] History of tobacco use Cigarette Smoker [facility] History SDOH Alcohol Binge [facility] drug use 2022-05-05 14:10:04 2022-05-05 14:10:04 Previously [facility] alcohol use 2022-05-05 14:10:04 2022-05-05 14:10:04 Currently [facility] PHQ2 Questionairre Score 2022-05-05 14:10:04 2022-05-05 14:10:04 [facility] is there any chance that you could be ? 2022-05-05 14:10:04 2022-05-05 14:10:04 No [facility] social history reviewed E&M 2022-05-05 14:10:04 2022-05-05 14:10:04 reviewed today [facility] social history E&M 2022-05-05 14:10:04 2022-05-05 14:10:04 Single. Spouse/Partner/Sig nificant Other: [facility] Lynnette Matthew/Maria Del Carmen Ruelas/Leia Sequeira/Jenifer Rodriguez/Daron Barnes. Entire family in [place]. Currently single. Two children in high school (17, 16), live with their dad. Not homeless. Born in [facility]. [place] State: [place]. Lives alone in apartmentNot employed. Unemployed. Highest education level: some college. Receives compensation from . Completed some collegeSex at : Female. Sexual orientation: Heterosexual. Gender identity: Female. Gender of partner(s): Male. Age of first sexual intercourse: 19. Sexually Active: No. [facility] if the patient is using/has used a vaping item, Current, Former, Never Used, Not asked 2022-05-05 14:10:04 2022-05-05 14:10:04 No [facility] Transportation Insecurity (In the past year, have you or someone you in your household had to go without) 2022-05-04 13:31:16 2022-05-04 13:31:16 Yes [facility] Rent/Mortgage Payment Insecurity (In the past year, have you or someone you in your household had to go without) 2022-05-04 13:31:16 2022-05-04 13:31:16 LA33-6 [facility] time of call 2021-07-15 11:31:18 2021-07-15 11:31:18 07/15/2021 11:34 AM [facility] passive cigarette smoke exposure 2021-02-13 10:29:27 2021-02-13 10:29:27 No [facility] sexual orientation 2021-02-13 10:29:27 2021-02-13 10:29:27 Heterosexual [facility] tobacco use (cigarettes, cigar, chew, pipe) 2021-02-13 10:29:27 2021-02-13 10:29:27 Currently [facility] drug use, illicit, drug of choice 2021-02-13 10:29:27 2021-02-13 10:29:27 cocaine [facility] family support 2021-02-10 10:34:08 2021-02-10 10:34:08 Entire family in [place]. Currently single. Two children in high school (17, 16), live with their dad. [facility] home/family situation, assessment 2021-02-10 10:34:08 2021-02-10 10:34:08 Lives alone in apartment [facility] albumin, serum 2021-01-06 14:03:00 2021-01-06 14:03:00 3.7 g/dL [facility] Cigarettes smoked current (pack per day) - Reported 2019-01-04 00:00:00 2019-01-04 00:00:00 [facility] Alcohol intake 2019-01-04 00:00:00 2019-01-04 00:00:00 [facility] History SDOH Alcohol Frequency 2019-01-04 00:00:00 2019-01-04 00:00:00 2 [facility] History SDOH Alcohol Std Drinks 2019-01-04 00:00:00 2019-01-04 00:00:00 1 [facility] Occupation #1 2017-12-02 15:30:48 2017-12-02 15:30:48 Unemployed [facility] alcohol use, frequency 2017-12-02 15:30:48 2017-12-02 15:30:48 holidays/special occasions only [facility] sex at 2017-12-02 15:30:48 2017-12-02 15:30:48 F [facility] patient considered to be homeless 2017-12-02 15:30:48 2017-12-02 15:30:48 LA32-8 [facility] Smoking Status Start Date Stop Date Source Ex-smoker (finding) 2022-05-05 14:10:04 14:10:04 [facility] Occasional tobacco smoker (finding) 2021-02-13 10:29:27 [facility] Never smoked tobacco (finding) [facility] Medications Ordered Medication Name Filled Medication Name Start Date Stop Date Current Medication? 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 Take 1 tablet by mouth once a day [facility] (NYSTATIN) [id number] UNIT/ML SUSP 2020-03 0 00:00: 00 Yes Dat Trujillo MD 5 Take 5 ml by mouth four times a day swish and swallow qid [facility] (KETOCONAZO LE) 2 % CREA 2020-03 0-25 00:00: 00 Yes Dat Trujillo MD 1 Apply 1 a small amount to affected area twice a day [facility] iohexol (OMNIPAQUE 350 BULK-100 mL) injection 100 mL 09-20 14:15: 00 09-20 13:54 :00 No 100mL 100 mL, Intravenou s, ONCE, 1 dose, Marely 09/21/19 at 0915, Routine [facility] azithromyci n (ZITHROMAX) tablet 1,000 mg 09-20 13:00: 00 09-20 12:00 :00 No 1000mg 1,000 mg, Oral, ONCE, 1 dose, Marely 09/21/19 at 0800, EMILEE
Re ason for Anti-Infec tive: Documented Infection< br>Documen ally Infection Site: Abdominal< br>Duratio n of Therapy: 7 days [facility] cefTRIAXone (ROCEPHIN) 1,000 mg in NaCl 0.9% (NS) 50 mL MINI-BAG 09-20 13:00: 00 09-20 12:57 :00 No 1000mg 1,000 mg, IV Piggyback, ONCE, 1 dose, Marely 09/21/19 at 0800, 50 mL
Reas on for Anti-Infec tive: Documented Infection< br>Documen ally Infection Site: Abdominal< br>Duratio n of Therapy: 7 days [facility] NaCl 0.9% (NS) bolus infusion 1,000 mL 09-20 11:45: 00 09-20 11:59 :00 No 1000mL at 999 mL/hr, 1,000 mL, IV Infusion, ONCE, 1 dose, Marely 09/21/19 at 0645, STAT [facility] acetaminoph en (TYLENOL) tablet 1,000 mg 09-20 11:30: 00 09-20 10:51 :00 No 1000mg 1,000 mg, Oral, ONCE, 1 dose, Marely 09/21/19 at 0630, EMILEE [facility] cefpodoxime 100 mg tablet 09-20 00:00: 00 Yes [id number] 100mg Take 1 tablet by mouth 2 (two) times daily. [facility] cefpodoxime 100 mg tablet 09-20 00:00: 00 Yes [id number] 100mg Take 1 tablet by mouth 2 (two) times daily. [facility] cefpodoxime 100 mg tablet 09-20 00:00: 00 Yes [id number] 100mg Take 1 tablet by mouth 2 (two) times daily. [facility] cefpodoxime 100 mg tablet 09-20 00:00: 00 09-20 00:00 :00 No [id number] 100mg Take 1 tablet by mouth 2 (two) times daily for 10 days. [facility] cefpodoxime 100 mg tablet 09-20 00:00: 09-20 00:00 :00 No [id number] 100mg Take 1 tablet by mouth 2 (two) times daily. 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 1{Table t} 1xD Take 1 tablet by mouth once a day [facility] Adult Medicin e predniSONE 20 mg tablet 07-11 00:00: 00 Yes [id number] Take 2 tablets (40 mg) daily for next 5 days [facility] predniSONE 20 mg tablet 07-11 00:00: 00 Yes [id number] Take 2 tablets (40 mg) daily for next 5 days [facility] predniSONE 20 mg tablet 07-11 00:00: 00 Yes [id number] Take 2 tablets (40 mg) daily for next 5 days [facility] BACTRIM DS (SULFAMETHO XAZOLE-TRIM ETHOPRIM) 800-160 MG TABS 12-02 00:00: 00 01-19 00:00 :00 No 1 tab by mouth once dialy [facility] Adult Medicin e (AZITHROMYC IN) 600 MG TABS 12-02 00:00: 00 01-19 00:00 :00 No 2 tabs by mouth once per week [facility] BIKTARVY (BICTEGRAVI R-EMTRICITA B-TENOFOV) 50-200-25 MG TABS 12-02 00:00: 00 01-19 00:00 :00 No Take 1 tab by mouth daily [facility] ondansetron (ZOFRAN ODT) 4 mg disintegrat ing tablet 08-25 00:00: 00 Yes 4mg Take 1 tablet by mouth every 8 (eight) hours as needed for Nausea and Vomiting (N/V). [facility] dicyclomine (BENTYL) 20 mg tablet 08-25 00:00: 00 Yes 20mg Take 1 tablet by mouth 4 (four) times daily. [facility] ondansetron (ZOFRAN ODT) 4 mg disintegrat ing tablet 08-25 00:00: 00 Yes 4mg Take 1 tablet by mouth every 8 (eight) hours as needed for Nausea and Vomiting (N/V). [facility] dicyclomine (BENTYL) 20 mg tablet 08-25 00:00: 00 Yes 20mg Take 1 tablet by mouth 4 (four) times daily. [facility] ondansetron (ZOFRAN ODT) 4 mg disintegrat ing tablet 08-25 00:00: 00 Yes 4mg Take 1 tablet by mouth every 8 (eight) hours as needed for Nausea and Vomiting (N/V). [facility] dicyclomine (BENTYL) 20 mg tablet 08-25 00:00: 00 Yes 20mg Take 1 tablet by mouth 4 (four) times daily. [facility] (HALOPERIDO L) 5 MG TABS 03-15 00:00: 00 Yes 1 Take 1 tablet by mouth twice a day [facility] (BENZTROPIN E MESYLATE) 1 MG TABS 03-15 00:00: 00 Yes 1 Take 1 tablet by mouth twice a day [facility] Vital Signs Vital Name Observation Time Observation Value Comments S ource Systolic blood pressure 2019-09-21 13:00:00 121 mm[Hg] [facility] Diastolic blood pressure 2019-09-21 13:00:00 72 mm[Hg] [facility] Heart rate 2019-09-21 13:00:00 87 /min [facility] Respiratory rate 2019-09-21 13:00:00 16 /min [facility] Oxygen saturation in Arterial blood by Pulse oximetry 2019-09-21 13:00:00 100 /min [facility] Body temperature 2019-09-21 12:28:00 37.72 Maria R [facility] Body weight 2019-09-21 10:24:00 61.199 kg [facility] BMI 2019-09-21 10:24:00 23.90 kg/m2 [facility] Systolic blood pressure 2019-09-21 13:00:00 121 mm[Hg] [facility] Diastolic blood pressure 2019-09-21 13:00:00 72 mm[Hg] [facility] Heart rate 2019-09-21 13:00:00 87 /min [facility] Respiratory rate 2019-09-21 13:00:00 16 /min [facility] Oxygen saturation in Arterial blood by Pulse oximetry 2019-09-21 13:00:00 100 /min [facility] Body temperature 2019-09-21 12:28:00 37.72 Maria R [facility] Body weight 2019-09-21 10:24:00 61.199 kg [facility] BMI 2019-09-21 10:24:00 23.90 kg/m2 [facility] Diastolic blood pressure 2022-05-05 14:10:04 80 mm[Hg] [facility] Systolic blood pressure 2022-05-05 14:10:04 113 mm[Hg] [facility] pulse rate 2022-05-05 14:10:04 85 /min [facility] temperature site 2022-05-05 14:10:04 [facility] temperature E&M 2022-05-05 14:10:04 98.7 [degF] [facility] BMI (body mass index) percentile 2022-05-05 14:10:04 n/a [facility] Body Mass Index (Ratio) 2022-05-05 14:10:04 257.65 kg/m2 [facility] weight E&M 2022-05-05 14:10:04 1449.25 [lb_av] [facility] weight in kilograms E&M 2022-05-05 14:10:04 658.75 kg [facility] height in centimeters E&M 2022-05-05 14:10:04 160.02 cm [facility] oxygen saturation, oximetry 2021-02-13 10:29:27 98 /min [facility] blood pressure, diastolic 2021-02-13 10:29:27 77 mm[Hg] [facility] blood pressure, systolic 2021-02-13 10:29:27 110 mm[Hg] [facility] pulse rate 2021-02-13 10:29:27 79 /min [facility] temperature site 2021-02-13 10:29:27 oral [facility] temperature E&M 2021-02-13 10:29:27 98.1 [degF] [facility] weight E&M 2021-02-13 10:29:27 108 [lb_av] [facility] weight in kilograms E&M 2021-02-13 10:29:27 [facility]09 [facility] height in centimeters E&M 2021-02-13 10:29:27 160.02 cm [facility] 2021-02-13 10:29:27 oral [facility] BMI (body mass index) percentile 2021-02-13 10:29:27 n/a [facility] beds [facility] Body Mass Index (Ratio) 2021-02-13 10:29:27 19.20 kg/m2 [facility] blood pressure, diastolic 2021-01-06 12:56:39 69 mm[Hg] [facility] blood pressure, systolic 2021-01-06 12:56:39 104 mm[Hg] [facility] respiratory rate E&M 2021-01-06 12:56:39 12 /min [facility] temperature E&M 2021-01-06 12:56:39 98.0 [degF] [facility] pulse rate 2021-01-06 12:56:39 94 /min [facility] oxygen saturation, oximetry 2021-01-06 12:56:39 96 /min [facility] weight E&M 2021-01-06 12:56:39 105.50 [lb_av] L [facility] weight in kilograms E&M 2021-01-06 12:56:39 47.95 kg [facility] height in centimeters E&M 2021-01-06 12:56:39 160.02 [facility] BMI (body mass index) percentile 2021-01-06 12:56:39 n/a [facility] Body Mass Index (Ratio) 2021-01-06 12:56:39 18.76 kg/m2 [facility] oxygen saturation, oximetry 2019-02-07 10:42:04 99 /min [facility] blood pressure, diastolic 2019-02-07 10:42:04 74 mm[Hg] [facility] blood pressure, systolic 2019-02-07 10:42:04 109 mm[Hg] [facility] respiratory rate E&M 2019-02-07 10:42:04 18 /min [facility] pulse rate 2019-02-07 10:42:04 81 /min [facility] temperature E&M 2019-02-07 10:42:04 97.7 [degF] [facility] weight E&M 2019-02-07 10:42:04 127.13 [lb_av] L [facility] weight in kilograms E&M 2019-02-07 10:42:04 57.79 kg [facility] height in centimeters E&M 2019-02-07 10:42:04 160.02 cm [facility] Body Mass Index (Ratio) 2019-02-07 10:42:04 22.60 kg/m2 [facility] BMI (body mass index) percentile 2019-02-07 10:42:04 n/a [facility] temperature site 2019-02-07 10:42:04 oral [facility] temperature site 2019-02-07 10:42:04 [facility] oxygen saturation, oximetry 2019-01-19 13:34:44 98 /min [facility] blood pressure, diastolic 2019-01-19 13:34:44 67 mm[Hg] [facility] blood pressure, systolic 2019-01-19 13:34:44 108 mm[Hg] [facility] respiratory rate E&M 2019-01-19 13:34:44 14 /min [facility] pulse rate 2019-01-19 13:34:44 98 /min [facility]&M 2019-01-19 13:34:44 97.7 [degF] [facility] weight E&M 2019-01-19 13:34:44 121 [lb_av] [facility] 2019-01-19 13:34:44 55 kg [facility] height in centimeters E&M 2019-01-19 13:34:44 [facility] BMI (body mass index) percentile 2019-01-19 13:34:44 n/a [facility] Body Mass Index (Ratio) 2019-01-19 13:34:44 21.51 kg/m2 [facility] 2019-01-19 13:34:44 oral [facility] temperature site 2019-01-19 13:34:44 oral [facility] oxygen saturation, oximetry 2017-12-16 12:33:44 98 /min [facility] blood pressure, diastolic 2017-12-16 12:33:44 71 mm[Hg] [facility] blood pressure, systolic 2017-12-16 12:33:44 103 mm[Hg] [facility] respiratory rate E&M 2017-12-16 12:33:44 14 /min [facility] pulse rate 2017-12-16 12:33:44 63 /min [facility] temperature E&M 2017-12-16 12:33:44 97.7 [degF] [facility]&M 2017-12-16 12:33:44 118 [lb_av] Lega [facility] weight in kilograms E&M 2017-12-16 12:33:44 53.64 [facility] height in centimeters E&M 2017-12-16 12:33:44 160.02 cm [facility] Body Mass Index (Ratio) 2017-12-16 12:33:44 20.98 kg/m2 [facility] 2017-12-16 12:33:44 [facility] 2017-12-16 12:33:44 [facility] height in centimeters E&M 2017-12-02 15:30:48 160[facility]02 [facility] oximetry 2017-12-02 15:30:48 95 /min [facility] blood pressure, diastolic 2017-12-02 15:30:48 72 mm[Hg] [facility] blood pressure, systolic 2017-12-02 15:30:48 111 mm[Hg] [facility] respiratory rate E&M 2017-12-02 15:30:48 12 /min [facility] pulse rate 2017-12-02 15:30:48 105 /min [facility] 2017-12-02 15:30:48 100.2 [degF] [facility]&M 2017-12-02 15:30:48 112 [lb_av] Lega [facility] weight in kilograms E&M 2017-12-02 15:30:48 50.91 [facility] Body Mass Index (Ratio) 2017-12-02 15:30:48 19.91 kg/m2 [facility] temperature [facility] 2017-12-02 15:30:48 [facility] 2017-12-02 15:30:48 oral [facility] Procedures Procedure Date / Time Performed Performing Clinician Source Outreach - Phone contact with (or on behalf of) Client 2022-05-07 16:19:02 Domo Barros [facility] Outreach - Client Specific Case Conference 2022-05-07 16:19:02 Domo Barros [facility] Primary Care SLW Meeting W Other CM 2022-05-07 10:48:03 Bridget Jaquez [facility] Outreach - Client Specific Case Conference 2022-05-06 13:30:44 [facility] 2022-05-05 15:09:17 Joel Barnes [facility] Health Education/Supportive Counseling 2021-07-16 16:17:39 Maurizio Abdul [facility] Outreach - Client Specific Case Conference 2021-02-24 15:35:42 Domo Barros [facility] Primary Care Service Linkage 2021-02-19 14:39:12 Bridget Jaquez [facility] Health Education/Supportive Counseling 2021-02-17 19:31:25 Maurizio Abdul [facility] Prescription Assistance (HIV - URGENT) 2021-02-13 11:03:13 Alysia Nicholson [facility] 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 2021-02-10 11:13:38 [facility] Psychotherapy 30 (16-37*) min - [id number] (with patient and/or family member) 2021-02-10 11:13:38 [facility] Primary Care SLW Meeting W Other CM 2021-01-16 12:41:00 Bridget Jaquez [facility] Primary Care Service Linkage 2021-01-16 12:41:00 Gisele [facility] Meeting with Case Manger 2021-01-16 12:30:34 Lyric Thomas [facility] Primary Care - Service Planning Comprehensive 2021-01-16 10:47:22 Dori Thomas [facility] Primary Care - Assesment-Comprehensive CCM-MCM 2021-01-16 10:47:22 Dori Thomas [facility] Primary Care Medical Case Management 2021-01-16 10:47:22 Dori Thomas [facility] Outreach - Phone contact with (or on behalf of) Client 2021-01-10 13:39:28 Tacho Shay [facility] Outreach - Client Specific Case Conference 2021-01-10 13:06:31 [facility]aspal [facility]acho [facility] Prescription [facility] (HIV - URGENT) 2021-01-08 16:00:30 TrujilloDat chen [facility] Education/Supportive Counseling 2021-01-08 15:31:04 FrankoMaurizio [facility] Integrated Behavioral Health Assessment (IBH) 2021-01-07 11:58:41 Ronnie [facility] Vision 2021-01-06 15:59:59 Ronnie Dat [facility] Venipuncture 2021-01-06 13:24:21 Ronnie [facility] Education/Supportive Counseling 2021-01-03 11:41:54 FrankoMaurizio [facility] [id number] 2020-04-28 00:00:00 [facility] [id number] 2020-04-28 00:00:00 [facility] [id number] 2020-04-28 00:00:00 [facility] [id number] 2020-04-28 00:00:00 [facility] [id number] 2020-04-28 00:00:00 [facility] CT ABDOMEN PELVIS W CONTRAST 2019-09-21 14:01:34 Yifan Bess [facility] POCT TEST 2019-09-21 11:15:00 Yifan Bess [facility] COMP. METABOLIC PANEL (69196) 2019-09-21 11:01:00 Yifan Bess [facility] CBC WITH DIFFERENTIAL 2019-09-21 11:01:00 Yifan Bess [facility] URINALYSIS 2019-09-21 11:01:00 Yifan Bess [facility] LACTIC ACID WHOLE BLOOD 2019-09-21 11:01:00 Dex Bess [facility] COVID-19 (ID NOW RAPID TESTING) 2019-09-21 11:01:00 Yifan Bess [facility] Primary Care Medical Case Management 2019-06-21 07:53:56 Jennifer Portillo [facility] Primary Care Medical Case Management 2019-06-20 11:01:26 Dori Thomas [facility] Outreach - Client Specific Case Conference 2019-06-20 10:47:57 Domo Barros [facility] Outreach - Client Specific Case Conference 2019-06-16 13:59:47 Domo Barros [facility] Primary Care Medical Case Management 2019-06-16 10:35:57 Dori Thomas [facility] Primary Care Service Linkage 2019-06-12 14:41:12 Maximus Mai [facility] Primary Care Medical Case Management 2019-06-02 11:06:01 Jennifer Portillo [facility] Outreach - Client Specific Case Conference 2019-06-01 14:13:12 FiorellaJayaio [facility] Health Education/Supportive Counseling 2019-02-22 16:00:51 Maurizio Abdul [facility] Prescription Assistance (HIV - URGENT) 2019-02-07 11:16:50 Alysia Nicholson [facility] Primary Care Service Linkage 2019-01-30 14:47:28 Bridget Jaquez [facility] Outreach - Face to Face in Office 2019-01-30 09:39:46 Lynne Boogie [facility] Primary Care - Assesment-Brief - SLW 2019-01-26 14:05:41 Bridget Jaquez [facility] Primary Care Service Linkage 2019-01-26 14:05:22 Bridget Jaquez [facility] Outreach - Client - Specific Supervision 2019-01-25 10:03:21 [facility] Outreach - Face to Face in Office 2019-01-25 09:59:39 [facility] Outreach - Client Specific Case Conference 2019-01-23 15:43:07 Domo Barros [facility] Health Outreach - Face to Face in Office 2019-01-23 15:26:22 Lynne Boogie [facility] Primary Care Medical Case Management 2019-01-23 15:19:30 Jennifer Portillo [facility] Vision 2019-01-19 14:13:05 Alysia Nicholson [facility] Outreach - Phone contact with (or on behalf of) Client 2018-12-12 13:04:00 Lynne Boogie [facility] Outreach - Client - Specific Supervision 2018-12-09 17:58:28 Lynne Boogie [facility] Primary [facility] Medical Case Management 2018-12-07 17:22:14 [facility] Case Management 2018-09-02 19:14:05 LroyAny [facility] Outreach - Face to Face in Office 2018-09-02 11:33:01 Lynne Boogie Larry [facility] Outreach - Phone contact with (or on behalf of) Client 2018-08-30 11:30:24 Lynne Boogie [facility] Outreach - Client - Specific Supervision 2018-08-25 09:20:27 Lynne Boogie [facility] Primary Care Medical Case Management 2018-08-22 17:42:11 [facility] Outreach - Phone contact with (or on behalf of) Client 2018-08-22 15:00:36 Lynne Boogie [facility] Outreach - Client - Specific Supervision 2018-08-10 14:28:16 Lynne Boogie Larry [facility] Outreach - Client - Specific Supervision 2018-08-03 11:24:44 Lynne [facility] Outreach - Face to Face in the Field 2018-07-27 10:01:03 Lynne Boogie [facility] Primary Care Medical Case Management 2018-07-19 16:52:52 Lory Any Juarez [facility] Outreach - Phone contact with (or on behalf of) Client 2018-07-19 09:26:29 Lynne [facility]ogie [facility] Outreach - Phone contact with (or on behalf of) Client 2018-07-18 10:55:05 Rebecca Anglin [facility] Primary [facility] Medical Case Management 2018-07-15 16:21:12 ZoraidanellyAny [facility] Outreach - Face to Face in Office 2018-07-15 12:49:09 Lynne Boogie [facility] Outreach - Phone contact with (or on behalf of) Client 2018-07-14 09:55:18 Lynne Boogie [facility] Primary Care Medical Case Management 2018-07-13 17:37:31 Lory [facility] Health Education/Supportive Counseling 2018-07-13 11:27:14 FrankoChriste [facility] Outreach - Client - Specific Supervision 2018-07-12 11:23:57 Lynne Boogie [facility] Outreach - Face to Face in Office 2018-07-11 11:01:23 BoogieLynne price [facility] Health Education/Supportive Counseling 2018-07-06 12:06:14 Maurizio Abdul [facility] Outreach - Client - Specific Supervision 2018-07-04 10:16:23 BoogieLynne [facility] Outreach - Face to Face in the Field 2018-06-27 09:03:19 BoogieLynne byrd [facility] Outreach - Face to Face in the Field 2018-06-27 08:59:27 Lynne Boogie [facility] Primary Care Medical Case Management 2017-12-16 16:26:55 Lory [facility] Primary Care Medical Case Management 2017-12-10 14:07:39 Lory [facility] Primary Care Medical Case Management 2017-12-09 16:32:33 Lory [facility] Primary Care - Service Planning Comprehensive 2017-12-03 13:49:58 Lory [facility] Primary Care - Assesment-Comprehensive [facility] 2017-12-03 13:49:58 Lory [facility] Primary Care Medical Case Management 2017-12-03 13:46:36 Lory [facility] Primary Care Service Linkage 2017-12-03 12:58:09 Bridget Jaquez [facility] Crossword Puzzle Maker 2017-12-02 19:51:51 Matthew Sequeira [facility] Primary Care Medical Case Management 2017-12-02 17:23:58 Lory [facility] Vision 2017-12-02 16:43:31 Marcial Sequeira [facility] Prescription Assistance (HIV - URGENT) 2017-12-02 16:42:09 Marcial Sequeira [facility] Health Education/Supportive Counseling 2017-11-18 09:54:43 Provider, Public Health Services [facility] Venipuncture 2017-11-17 12:37:34 Marcial Sequeira [facility] Encounters Start Date/Time End Date/Time Encounter Type Admission Type Attending [facility] Care Facility Care Department Encounter ID Source 2022-08-18 14:27:04 Outpatient lc.dcupit [facility] [id number] [facility] 2022-08-07 11:51:02 Outpatient [email or web address] [facility] [id number] [facility] 2022-08-01 13:55:02 Outpatient [email or web address].[email or web address] [facility] [id number] [facility] 2022-07-29 16:47:02 Outpatient [email or web address] [facility] [id number] [facility] 2022-05-27 15:15:05 Outpatient [email or web address] [facility] [id number] [facility] 2022-05-06 15:25:03 Outpatient [email or web address] [facility] [id number] [facility] 2022-05-04 15:59:03 Outpatient [email or web address] [facility] [id number] [facility] 2022-04-30 16:33:02 Outpatient lc.rjoseph [facility] [id number] [facility] 2022-04-02 14:25:04 Outpatient lc.rjoseph [facility] [id number] [facility] 2022-02-04 08:41:04 Outpatient lc.rjoseph [facility] [id number] [facility] 2022-02-03 11:47:03 Outpatient lc.rjoseph [facility] [id number] [facility] 2022-01-09 10:59:04 Outpatient lc.rjoseph [facility] [id number] [facility] 2022-01-08 14:13:03 Outpatient lc.rjoseph [facility] [id number] [facility] 2022-01-02 13:57:05 Outpatient kellee.rjosejennifer [facility] [id number] [facility] 2021-01-10 05:40:42 Emergency [facility] [id number] [facility] 2020-04-28 12:10:00 Inpatient HCACL SYED [id number] [facility] 2023-04-20 08:00:00 2023-04-20 08:00:00 Outpatient CHOCO GOODMAN CHRISTOPHER [facility] [id number] [facility] 2023-03-08 13:46:00 2023-03-09 12:47:00 Inpatient EM RadhaMargareth blackmon [facility]AMN TELE [id number] [facility] 2023-03-06 23:57:00 2023-03-06 23:57:00 Outpatient Hermes Lockhart [facility] LABO [id number] [facility] 2022-05-05 00:00:00 2022-05-06 00:00:00 In-person encounter Joel Barnes, Barbra Dyer [facility] Adult Medicine [id number] [facility] 2021-02-13 00:00:00 2021-02-13 00:00:00 Office Visit Alysia Nicholson Armando [facility] Encounter/ [id number] [facility] 2021-02-13 00:00:00 2021-02-13 00:00:00 In-person encounter Alysia Nicholson Armando Hernandez, Jesus A Cupit, Nadia Bhatt [facility] Adult Medicine [id number] [facility] 2021-02-10 00:00:00 2021-02-10 00:00:00 Office Visit Tia Reeves [facility] Encounter/ [id number] [facility] 2021-02-10 00:00:00 2021-02-10 00:00:00 In-person encounter Tia Reeves [facility] Behavioral Health [id number] [facility] 2021-01-06 00:00:00 2021-01-06 00:00:00 In-person encounter Dat Trujillo John Callis, Erron Diego-Molin a, Dunia Legasse, Heather Dela Torre, Credeliza [facility] Medicine [id number] [facility] 2021-01-06 00:00:00 2021-01-06 00:00:00 Office Visit Dat Trujillo John Callis, Erron [facility] Encounter/ [id number] [facility] 2020-01-03 00:00:00 2020-01-03 00:00:00 Office Visit Pati Sapp [facility] Encounter/ [id number] [facility] 2020-01-02 00:00:00 2020-01-02 00:00:00 Office Visit Pati Sapp [facility] Encounter/ [id number] [facility] 2019-11-13 00:00:00 2019-11-13 00:00:00 Office Visit Alysia Nicholson MedAdherenc eLuba [facility] Encounter/ [id number] [facility] 2019-10-11 00:00:00 2019-10-11 00:00:00 Office Visit Alysia Nicholson MedAdherenc eLuba MedAdherenc e,, Ella [facility] Encounter/ [id number] [facility] 2019-09-25 00:00:00 2019-09-25 00:00:00 Letter (Out) Janett Rodriguez [facility] [id number]..[id number] [facility] 2019-09-25 00:00:00 2019-09-25 00:00:00 Letter (Out) Janett Rodriguez [facility] 1..[id number] 2019-09-22 00:00:00 2019-09-22 00:00:00 Telephone [facility] [id number] [facility] 2019-09-22 00:00:00 2019-09-22 00:00:00 Telephone [facility] [id number] 2019-09-21 05:28:01 2019-09-21 11:38:00 [facility] [id number] [facility] 2019-09-21 05:28:01 2019-09-21 11:38:00 [facility] [id number] 2019-06-20 00:00:00 2019-06-20 00:00:00 Office Visit Karol Baer [facility] Encounter/ [id number] [facility] 2019-06-20 00:00:00 2019-06-20 00:00:00 Office Visit Dori Thomas [facility] Encounter/ [id number] [facility] 2019-06-20 00:00:00 2019-06-20 00:00:00 Office Visit Domo Barros [facility] Encounter/ [id number] [facility] 2019-06-19 00:00:00 2019-06-19 00:00:00 Office Visit Madelyn Joseph [facility] Encounter/ [id number] [facility] 2019-06-19 00:00:00 2019-06-19 00:00:00 Office Visit John Sandoval [facility] Encounter/ [id number] [facility] 2019-06-16 00:00:00 2019-06-16 00:00:00 Office Visit Domo Barros [facility] Encounter/ [id number] [facility] 2019-06-16 00:00:00 2019-06-16 00:00:00 Office Visit Dori Thomas [facility] Encounter/ [id number] [facility] 2019-06-16 00:00:00 2019-06-16 00:00:00 Office Visit Jennifer Portillo [facility] Encounter/ [id number] [facility] 2019-06-14 00:00:00 2019-06-14 00:00:00 Office Visit Alysia Nicholson [facility] Encounter/ [id number] [facility] 2019-06-14 00:00:00 2019-06-14 00:00:00 Office Visit Alysia Nicholson [facility] Encounter/ [id number] [facility] 2019-05-26 00:00:00 2019-05-26 00:00:00 Office Visit Maximus Mai [facility] Encounter/ [id number] [facility] 2019-05-26 00:00:00 2019-05-26 00:00:00 Office Visit Jennifer Portillo [facility] Encounter/ [id number] [facility] 2019-05-26 00:00:00 2019-05-26 00:00:00 Office Visit Domo Barros [facility] Encounter/ [id number] [facility] 2019-05-26 00:00:00 2019-05-26 00:00:00 Office Visit Domo Barros [facility] Encounter/ [id number] [facility] 2019-03-13 00:00:00 2019-03-13 00:00:00 Office Visit Karen Smith [facility] Encounter/ [id number] [facility] 2019-02-28 00:00:00 2019-02-28 00:00:00 Office Visit Desktop, Pharmacy [facility] Enrike Abdul Omaida [facility] Encounter/ [id number] [facility] 2019-02-22 00:00:00 2019-02-22 00:00:00 Office Visit Provider, Public Health Services Maurizio Abdul [facility] Encounter/ [id number] [facility] 2019-02-15 00:00:00 2019-02-15 00:00:00 Office Visit Kvng Nichole [facility] Encounter/ [id number] [facility] 2019-02-14 00:00:00 2019-02-14 00:00:00 Office Visit Dat Whitfield [facility] Encounter/ [id number] [facility] 2019-02-13 00:00:00 2019-02-13 00:00:00 Office Visit Mai Hurst [facility] Encounter/ [id number] [facility] 2019-02-07 00:00:00 2019-02-07 00:00:00 Office Visit Karen Smith [facility] Encounter/ [id number] [facility] 2019-02-07 00:00:00 2019-02-07 00:00:00 Office Visit Karen Smith [facility] Encounter/ [id number] [facility] 2019-02-07 00:00:00 2019-02-07 00:00:00 Office Visit Alysia Nicholson [facility] Encounter/ [id number] [facility] 2019-02-07 00:00:00 2019-02-07 00:00:00 Office Visit Alysia Nicholson Rolanda McIntyre, Shakira Suazo, Morlin Smith, Robert Hernandez Ray, Madelyn Campbell [facility] Encounter/ [id number] [facility] 2019-02-07 00:00:00 2019-02-07 00:00:00 In-person encounter Alysia Nicholson, Parvin Jackson, Dia Smith, Karen Abdul, Enrike Whitten, Madelyn Campbell [facility] Adult Medicine [id number] [facility] 2019-02-03 00:00:00 2019-02-03 00:00:00 Office Visit Connie Willingham [facility] Encounter/ [id number] [facility] 2019-01-30 00:00:00 2019-01-30 00:00:00 Office Visit Karol Baer [facility] Encounter/ [id number] [facility] 2019-01-30 00:00:00 2019-01-30 00:00:00 Office Visit Bridget Jaquez [facility] Encounter/ [id number] [facility] 2019-01-24 00:00:00 2019-01-24 00:00:00 Office Visit Karol Baer [facility] Encounter/ [id number] [facility] 2019-01-24 00:00:00 2019-01-24 00:00:00 Office Visit Lynne Boogie [facility] Encounter/ [id number] [facility] 2019-01-24 00:00:00 2019-01-24 00:00:00 Office Visit Lisa Esparza [facility] Encounter/ [id number] [facility] 2019-01-23 00:00:00 2019-01-23 00:00:00 Office Visit Lynne Boogie [facility] Encounter/ [id number] [facility] 2019-01-23 00:00:00 2019-01-23 00:00:00 Office Visit Domo Barros [facility] Encounter/ [id number] [facility] 2019-01-19 00:00:00 2019-01-23 00:00:00 In-person encounter Alysia Nicholson, Ilana Pizarro Armando [facility] Adult Medicine [id number] [facility] 2019-01-20 00:00:00 2019-01-20 00:00:00 Office Visit Lynne Boogie [facility] Encounter/ [id number] [facility] 2019-01-19 00:00:00 2019-01-19 00:00:00 Office Visit Provider, Public Health Services Maurizio Abdul [facility] Encounter/ [id number] [facility] 2019-01-19 00:00:00 2019-01-19 00:00:00 Office Visit Bridget Jaquez [facility] Encounter/ [id number] [facility] 2019-01-19 00:00:00 2019-01-19 00:00:00 Office Visit Bridget Jaquez [facility] Encounter/ [id number] [facility] 2019-01-19 00:00:00 2019-01-19 00:00:00 Office Visit Alysia Nicholson [facility] Encounter/ [id number] [facility] 2019-01-19 00:00:00 2019-01-19 00:00:00 Office Visit Alysia Nicholson [facility] Encounter/ [id number] [facility] 2019-01-19 00:00:00 2019-01-19 00:00:00 Office Visit Lynne Boogie [facility] Encounter/ [id number] [facility] 2019-01-19 00:00:00 2019-01-19 00:00:00 Office Visit Alysia Nicholson [facility] Encounter/ [id number] [facility] 2019-01-19 00:00:00 2019-01-19 00:00:00 Office Visit Alysia Nicholson Tamika Diego-Molin a, Dunia Razo, Armando [facility] Encounter/ [id number] [facility] 2019-01-18 00:00:00 2019-01-18 00:00:00 Office Visit Jennifer Portillo [facility] Encounter/ [id number] [facility] 2018-12-15 00:00:00 2018-12-15 00:00:00 Office Visit Margo Bolanos [facility] Encounter/ [id number] [facility] 2018-12-08 00:00:00 2018-12-08 00:00:00 Office Visit Lynne Booige [facility] Encounter/ [id number] [facility] 2018-12-08 00:00:00 2018-12-08 00:00:00 Office Visit Karol Baer [facility] Encounter/ [id number] [facility] 2018-12-06 00:00:00 2018-12-06 00:00:00 Office Visit Lynne Boogie [facility] Encounter/ [id number] [facility] 2018-12-06 00:00:00 2018-12-06 00:00:00 Office Visit Any Henley [facility] Encounter/ [id number] [facility] 2018-09-02 00:00:00 2018-09-02 00:00:00 Office Visit Any Henley [facility] Encounter/ [id number] [facility] 2018-08-31 00:00:00 2018-08-31 00:00:00 Office Visit Lynne Boogie [facility] Encounter/ [id number] [facility] 2018-08-30 00:00:00 2018-08-30 00:00:00 Office Visit Lynne Boogie [facility] Encounter/ [id number] [facility] 2018-08-25 00:00:00 2018-08-25 00:00:00 Office Visit Karol Baer [facility] Encounter/ [id number] [facility] 2018-08-25 00:00:00 2018-08-25 00:00:00 [facility] [id number] [facility] 2018-08-22 00:00:00 2018-08-22 00:00:00 [facility]/ [id number] [facility] 2018-08-22 00:00:00 2018-08-22 00:00:00 [facility]/ [id number] [facility] 2018-08-01 00:00:00 2018-08-01 00:00:00 [facility]/ [id number] [facility] 2018-08-01 00:00:00 2018-08-01 00:00:00 Office Visit Karol Baer Laura [facility] Encounter/ [id number] [facility] 2018-07-25 00:00:00 2018-07-25 00:00:00 Office Visit Lynne Boogie [facility] Encounter/ [id number] [facility] 2018-07-22 00:00:00 2018-07-22 00:00:00 Office Visit BoogieLynne price [facility] Encounter/ [id number] [facility] 2018-07-19 00:00:00 2018-07-19 00:00:00 Office Visit Any Henley [facility] Encounter/ [id number] [facility] 2018-07-19 00:00:00 2018-07-19 00:00:00 Office Visit Lynne Boogie [facility] Encounter/ [id number] [facility] 2018-07-19 00:00:00 2018-07-19 00:00:00 Office Visit ZoraidaAny villegas PrinceJenifer santana, Jihan Cohen [facility] Encounter/ [id number] [facility] 2018-07-15 00:00:00 2018-07-15 00:00:00 Office Visit Lory Any [facility] Encounter/ [id number] [facility] 2018-07-13 00:00:00 2018-07-13 00:00:00 Office Visit Lynne Boogie [facility] Encounter/ [id number] [facility] 2018-07-13 00:00:00 2018-07-13 00:00:00 Office Visit Any Henley [facility] Encounter/ [id number] [facility] 2018-07-13 00:00:00 2018-07-13 00:00:00 Office Visit Provider, [facility] Franko Maurizio [facility] Encounter/ [id number] [facility] 2018-07-12 00:00:00 2018-07-12 00:00:00 Office Visit Shantal Belcher [facility] Encounter/ [id number] [facility] 2018-07-11 00:00:00 2018-07-11 00:00:00 Office Visit MisaelKarol pickering [facility] Encounter/ [id number] [facility] 2018-07-11 00:00:00 2018-07-11 00:00:00 Office Visit Lynne Boogie [facility] Encounter/ [id number] [facility] 2018-07-07 00:00:00 2018-07-07 00:00:00 Office Visit Marcial Sequeira Nohemi [facility] Encounter/ [id number] [facility] 2018-07-07 00:00:00 2018-07-07 00:00:00 Office Visit Lynne Boogie [facility] Encounter/ [id number] [facility] 2018-07-06 00:00:00 2018-07-06 00:00:00 Office Visit Lynne Boogie [facility] Encounter/ [id number] [facility] 2018-07-06 00:00:00 2018-07-06 00:00:00 Office Visit Lynne Boogie [facility] Encounter/ [id number] [facility] 2018-07-06 00:00:00 2018-07-06 00:00:00 Office Visit Provider, Public Health Services Álvaro Cruz [facility] Encounter/ [id number] [facility] 2018-07-06 00:00:00 2018-07-06 00:00:00 Office Visit Provider, [facility] Maurizio Abdul [facility] Encounter/ [id number] [facility] 2018-07-05 00:00:00 2018-07-05 00:00:00 Office Visit Marcial Sequeira [facility] Encounter/ [id number] [facility] 2018-07-05 00:00:00 2018-07-05 00:00:00 Office Visit Marcial Sequeira [facility] Encounter/ [id number] [facility] 2018-07-05 00:00:00 2018-07-05 00:00:00 Office Visit Marcial Sequeira [facility] Encounter/ [id number] [facility] 2018-07-04 00:00:00 2018-07-04 00:00:00 Office Visit Karol Baer [facility] Encounter/ [id number] [facility] 2018-07-04 00:00:00 2018-07-04 00:00:00 Office Visit Lynne Boogie [facility] Encounter/ [id number] [facility] 2018-06-24 00:00:00 2018-06-24 00:00:00 Office Visit Lynne Boogie [facility] Encounter/ [id number] [facility] 2018-06-23 00:00:00 2018-06-23 00:00:00 Office Visit Rebecca Anglin [facility] Encounter/ [id number] [facility] 2018-06-23 00:00:00 2018-06-23 00:00:00 Office Visit Lynne Boogie [facility] Encounter/ [id number] [facility] 2018-04-01 00:00:00 2018-04-01 00:00:00 Office Visit Provider, Public Health Services Maurizio Abdul [facility] Encounter/ [id number] [facility] 2018-03-25 00:00:00 2018-03-25 00:00:00 Office Visit Margo Bolanos [facility] Encounter/ [id number] [facility] 2018-03-25 00:00:00 2018-03-25 00:00:00 Office Visit Marcial Sequeira [facility] Encounter/ [id number] [facility] 2018-02-22 00:00:00 2018-02-22 00:00:00 Office Visit Provider, [facility] Health Services Maurizio Abdul [facility] Encounter/ [id number] [facility] 2018-02-14 00:00:00 2018-02-14 00:00:00 Office Visit Cb Ronda [facility] Encounter/ [id number] [facility] 2018-02-11 00:00:00 2018-02-11 00:00:00 Office Visit Paulie Burroughs [facility] Encounter/ [id number] [facility] 2018-02-01 00:00:00 2018-02-01 00:00:00 Office Visit Provider, [facility] Maurizio Abdul [facility] Encounter/ [id number] [facility] 2018-01-13 00:00:00 2018-01-13 00:00:00 Office Visit Margo Bolanos [facility] Encounter/ [id number] [facility] 2017-12-16 00:00:00 2017-12-19 00:00:00 In-person encounter Marcial Sequeira Nancy [facility] Adult [facility] [id number] [facility] 2017-12-16 00:00:00 2017-12-16 00:00:00 Office Visit Any Henley [facility] Encounter/ [id number] [facility] 2017-12-16 00:00:00 2017-12-16 00:00:00 Office Visit Marcial Sequeira [facility] Encounter/ [id number] [facility] 2017-12-16 00:00:00 2017-12-16 00:00:00 Office Visit Marcial Sequeira Nancy [facility] Encounter/ [id number] [facility] 2017-12-10 00:00:00 2017-12-10 00:00:00 Office Visit Any Henley [facility] Encounter/ [id number] [facility] 2017-12-10 00:00:00 2017-12-10 00:00:00 Office Visit Margo Bolanos [facility] Encounter/ [id number] [facility] 2017-12-09 00:00:00 2017-12-09 00:00:00 Office Visit Any Henley [facility] Encounter/ [id number] [facility] 2017-12-04 00:00:00 2017-12-04 00:00:00 Office Visit GiordanoDanette [facility] Encounter/ [id number] [facility] 2017-12-03 00:00:00 2017-12-03 00:00:00 Office Visit Zoraidanelly Any [facility] Encounter/ [id number] [facility] 2017-12-03 00:00:00 2017-12-03 00:00:00 Office Visit Marcial Sequeira [facility] Encounter/ [id number] [facility] 2017-12-03 00:00:00 2017-12-03 00:00:00 Office Visit Marcial Sequeira [facility] Encounter/ [id number] [facility] 2017-12-03 00:00:00 2017-12-03 00:00:00 Office Visit Zoraidanelly Any [facility] Encounter/ [id number] [facility] 2017-12-03 00:00:00 2017-12-03 00:00:00 Office Visit ZoraidanellyAny [facility] Encounter/ [id number] [facility] 2017-12-03 00:00:00 2017-12-03 00:00:00 Office Visit ZoraidaAny villegas [facility] Encounter/ [id number] [facility] 2017-12-03 00:00:00 2017-12-03 00:00:00 Office Visit Jenifer Morrison [facility] Encounter/ [id number] [facility] 2017-12-03 00:00:00 2017-12-03 00:00:00 Office Visit Bridget Jaquez [facility] Encounter/ [id number] [facility] 2017-12-02 00:00:00 2017-12-02 00:00:00 Office Visit Any Henley [facility] Encounter/ [id number] [facility] 2017-12-02 00:00:00 2017-12-02 00:00:00 Office Visit Marcial Sequeira [facility] Encounter/ [id number] [facility] 2017-12-02 00:00:00 2017-12-02 00:00:00 Office Visit Marcial Sequeira Nohemi Ortega, Rodolfo Diego-Molin a, Dunia [facility] Encounter/ [id number] [facility] 2017-12-02 00:00:00 2017-12-02 00:00:00 In-person encounter Marcial Sequeira Nohemi Ortega, Rodolfo Diego-Molin a, Dunia [facility] Adult Medicine [id number] [facility] 2017-11-30 00:00:00 2017-11-30 00:00:00 Office Visit Margo Bolanos [facility] Encounter/ [id number] [facility] 2017-11-25 00:00:00 2017-11-25 00:00:00 Office Visit Marcial Sequeira Donte [facility] Encounter/ [id number] [facility] 2017-11-18 00:00:00 2017-11-18 00:00:00 Office Visit Provider, Public Health Services Maurizio Abdul [facility] Encounter/ [id number] [facility] 2017-11-17 00:00:00 2017-11-17 00:00:00 Office Visit Marcial Sequeira [facility] Encounter/ [id number] [facility] 2017-11-17 00:00:00 2017-11-17 00:00:00 Office Visit Marcial Sequeira [facility] Encounter/ [id number] [facility] 2017-11-17 00:00:00 2017-11-17 00:00:00 Office Visit Provider, [facility] Maurizio Abdul [facility] Encounter/ [id number] [facility] 2017-11-17 00:00:00 2017-11-17 00:00:00 Office Visit Provider, [facility] FrankoMaurizio [facility] Encounter/ [id number] [facility] 2017-11-17 00:00:00 2017-11-17 00:00:00 Office Visit Marcial SequeiraNenitaSophie [facility] Encounter/ [id number] [facility] Results Test Description Test Time Test Comments Results Result Co mments Source LACTIC DEHYDROGENASE(LDH)2023-03-10 15:11:00* Test Item Value Reference Range Interpretation Comme nts LACTIC DEHYDROGENASE(LDH) (t est code = LDH) 183 Units/L 81-234 N CD4 HELPER T-CELL [id number] 15:11:00* Test Item Value Reference Range Interpretation Comme nts IMMATURE GRANULOCYTE # (test code = IG#) 0.00 x10E3/uL 0.0-0.1 Performed At : [facility] [address] [id number] Kyle L MD Ph:[phone] WBC (test code = WBCLC) 4.7 x10E3/uL [...] IG%) 0.0 % Not Estab. COMPREHENSIVE METABOLIC [id number] 02:38:00* Test Item Value Reference Range Interpretation [...] ALKP) 52 Units/L 50.0-136.0 N CBC W/AUTO [id number] 01:49:00* Test Item Value Reference Range Interpretation [...] 0.00 X10 3uL 0.00-0.01 N CBC W/AUTO [id number] 04:20:00* Test Item Value Reference Range Interpretation [...] 0.00 X10 3uL 0.00-0.01 N COMPREHENSIVE METABOLIC [id number] 04:17:00* Test Item Value Reference Range Interpretation [...] code = ALKP) 41 Units/L 50.0-136.0 L [id number] 04:29:00* Test Item Value Reference Range Interpretation Comme nts GLUBED (test code = GLUBED) 103 mg/dL 70-110 N COVID 19 Asymptomatic IH [id number] 00:55:00* Test Item Value Reference Range Interpretation Comme nts COVID 19 Asymptomatic IH AG (test code = COVNONPUIAG) NEGATIVE NEGATIVE Negative results should be treated as presumptive and ifinconsistent with clinical signs and symptoms, or necessaryfor patient management, should be tested with an alternativemolecular assay. Negative results do not preclude MVAF-GfO-4eshtvlflv and should not be used as the sole basis forpatient management decisions. Negative results should beconsidered in the context of a patient's recent exposures,history, presence of clinical signs and symptoms consistentwith COVID-19. - CT ABD PELVIS [id number] 00:44:00 [facility] 1985 Sex: F FAX:Hermes Lockhart MD Rector: St: REG Name: ADEEL DEL TORO [facility] : 1985 Age/S: 37/F [address] [facility] Unit: [id number] Loc: [address] Phys: [place] [id number] Acct: [id number] Dis Date: Status: REG ER PHONE #: [phone] Exam Date: 03/07/20231 FAX #: [phone] Reason: vomiting, diarrhea, fever EXAMS: CPT CODE: [id number] CT ABD PELVIS W/CONT 66181 EXAM: CT abdomen and pelvis with contrast. LOCATION: H 12 HISTORY: vomiting, diarrhea, fever TECHNIQUE: Enhanced spiral slices were taken from the domes of the diaphragm, through the pubic symphysis. [place] coronal, and where appropriate, MIP reformations were [...] veins are patent. PANCREAS: The pancreas is normal. The pancreatic duct is normal in caliber. SPLEEN: Spleen is unremarkable. ADRENAL GLANDS: Adrenal glands are unremarkable. KIDNEYS/URETERS: The kidneys are unremarkable. No perinephric fluid collections or hydronephrosis is seen. GASTROINTESTINAL: The large and small intestine are normal in caliber. The appendix is normal. PERITONEUM: No lymphadenopathy is found in the abdomen or the pelvis.No free fluid is seen. PELVIS: The pelvic structures are unremarkable. VASCULAR: The aorta is unremarkable. The IVC is normal. PAGE 1 Signed Report (CONTINUED) FAX: Hermes Lockhart MD Rector: St: REG -- Name: ADEEL DEL TORO [facility] : 1985 Age/S: 37/F [address] [facility] Unit: [id number] Loc: [address]ERS[address] [place], [place] Phys: [place] [id number] Acct: [id number] Dis Date: Status: REG ER PHONE #: [phone] Exam Date: 03/07/202320 FAX #: [phone] Reason: vomiting, diarrhea, fever EXAMS: CPT CODE: [id number] CT ABD PELVIS W/CONT 64732 (Continued) BONES/SOFT TISSUES: Unremarkablefor age. IMPRESSION: Unremarkable exam. Electronically Signed by Stacia Grant on 03/07/2023 at 0044 Reported and signed by: Mau Grant M.D. CC: Hermes Lockhart MD Technologist: Margo Benitez Trnscrd Dt/Tm: 03/07/2023 (43) tANTONYFC Orig Print D/T: S: 03/07/2023 (7 PAGE 2 Signed ReportLACTIC ACID 2023-03-06 23:58:00* Test Item Value Reference Range Interpretation Comme nts LACTIC ACID (test code = LACT) 0.6 mmol/L 0.4-2.0 N HEPATIC FUNCTION PANEL [id number] 23:55:00* Test Item Value Reference Range Interpretation [...] OF BLOOD IN EACH OF THE TWO BOTTLES.[id number] 23:55:00* Test Item Value Reference Range Interpretation Comme nts LIPASE (test code = LIP) 47 Units/L 16-77 N ABOUT 5 ML OF BLOOD IN EACH OF THE TWO BOTTLES.BASIC METABOLIC [id number] 23:55:00* Test Item Value Reference Range Interpretation [...] OF THE TWO BOTTLES.DRUGS OF ABUSE SCREEN 2023-03-06 23:54:00* Test Item Value Reference Range [...] BEEN TAKEN? screenUA RFLX MICR CULT IF [id number] 23:44:00* Test Item Value Reference Range Interpretation [...] for culture: Dysuria/FrequencySpecimen Description: CLEAN CATCHUR HCG [id number] 23:44:00* Test Item Value Reference Range Interpretation Comme nts UR HCG QUAL (test code = HCGQLU) NEGATIVE NEGATIVE Indication for culture: Dysuria/FrequencySpecimen Description: CLEAN CATCHCBC W/AUTO [id number] 23:37:00* Test Item Value Reference Range Interpretation [...] 3uL 0.00-0.01 N - XR CHEST 1 [id number] 23:37:00 [facility] : 1985 Sex: F FAX:Hermes Lockhart MD Rector: St: PRE Name: ADEEL DEL TORO [facility] : 1985 Age/S: 37/F [address] [facility] Unit #: [id number] Loc: [address] Phys: [place] [address] Acct: [id number] Dis Date: Status: PRE ER PHONE #: [phone] Exam Date: 03/06/2023 2332 FAX #: [phone] Reason: fever EXAMS: CPT CODE: [id number] XR CHEST 1 V 09641 EXAMINATION: - XR CHEST 1 V CLINICAL [...] pleural effusion is identified. No pneumothorax is present. Bones: Visualized skeleton is normal. IMPRESSION: No acute cardiopulmonary disease. ElectronicallySigned by Stacia Mendes on 03/06/2023 at 2337 Reported and signed by: Dat Mendes M.D. CC: Hermes Lockhart MD Technologist: MARGO MERIDA [facility] Date/Time/By: 03/06/2023 (9110) : By: [email or web address] PAGE 1 Signed Report FAX: Hermes Lockhart MD Rector: St: PRE Name: ADEEL DEL TORO [facility] : 1985 Age/S: 37/F [address] [facility] Unit #: [id number] Loc: [address] [place]: [place] [id number] Acct: [id number] Dis Date: Status: PRE ER PHONE #: [phone] Exam Date: 03/06/2023 2332 FAX #: [phone] Reason: fever EXAMS: CPT CODE: [id number] XR CHEST 1 V 21637 (Continued) Orig Print D/T: S: 03/06/2023 (2240) PAGE 2 Signed Reportprotein, urine, semiquantitative (dipstick)2021-01-06 14:37:00* Test Item Value Reference Range Interpretation Comme nts protein, urine, semiquantitative (dipstick) (test code = 1753-3) 48.5 (unknown unit) [facility] random, [id number] 14:37:00* Test Item Value Reference Range Interpretation Comme nts creatinine, random, urine (t est code = 2161-8) 224.8 mg/dL [facility] HospitalQuantifer[facility] Gold TB blood test for tuberculosis screening 2021-01-06 14:37:00* Test Item Value Reference Range Interpretation Comme nts Quantiferon Gold TB blood te st for tuberculosis screening (test code = 89576-6) Negative Negative [facility] Healthbacteria, urine [id number] 14:03:00* Test Item Value Reference Range Interpretation Comme nts bacteria, urine microscopy ( test code = 5769-5) Many None seen/Few A [facility] Healthcasts, [id number] 14:03:00* Test Item Value Reference Range Interpretation Comme nts casts, urine (test code = 5626) None seen None seen [facility] cells, [id number] 14:03:00* Test Item Value Reference Range Interpretation Comme nts epithelial cells, urine (iveth t code = 5787-7) 0-10 0-10 [facility] HospitalRBC, [id number] 14:03:00* Test Item Value Reference Range Interpretation Comme nts RBC, Urine (test code = 88942-9) 11-30 /hpf 0-2 A [facility] HospitalWBC urine on [id number] 14:03:00* Test Item Value Reference Range Interpretation Comme nts WBC urine on microscopy (iveth t code = 1016) >30 /hpf 0-5 A [facility]urinalysis, microscopic [id number] 14:03:00* Test Item Value Reference Range Interpretation Comme nts urinalysis, microscopic examination (test code = 09052-5) See below: [facility] Hospitalnitrate, [id number] 14:03:00* Test Item Value Reference Range Interpretation Comme nts nitrate, urine (test code = 11800-6) Positive Negative A [facility] Hospitalurobilinogen, urine, semiquantitative (dipstick) 2021-01-06 14:03:00* Test Item Value Reference Range Interpretation Comme nts urobilinogen, urine, semiquantitative (dipstick) (test code = 5818-0) 0.2 (unknown unit) 0.2-1.0 [facility]bilirubin, [id number] 14:03:00* Test Item Value Reference Range Interpretation Comme nts bilirubin, urine (test code = 5770-3) Negative Negative [facility] Hospitalketones, urine, by test [id number] 14:03:00* Test Item Value Reference Range Interpretation Comme nts ketones, urine, by test stri p (test code = 5797-6) Negative Negative [facility] Hospitalglucose, urine, [id number] 14:03:00* Test Item Value Reference Range Interpretation Comme nts glucose, urine, semiquantita tive (test code = 5792-7) Negative Negative [facility] Healthprotein, urine, semiquantitative (dipstick)2021-01-06 14:03:00* Test Item Value Reference Range Interpretation Comme nts protein, urine, semiquantita tive (dipstick) (test code = 1753-3) 1+ Negative/Trace A [facility], urine, by cfltfoyb7552-45-31 14:03:00 * Test Item Value Reference Range Interpretation Comme nts leukocyte esterase, urine, b y dipstick (test code = 5799-2) 3+ Negative A [facility]appearance, srbul7908-21-61 14:03:00* Test Item Value Reference Range Interpretation Comme nts appearance, urine (test code = 5767-9) Cloudy Clear A [facility] Hospitalurine yvpex0010-77-66 14:03:00* Test Item Value Reference Range Interpretation Comme nts urine color (test code = 5778-6) Yellow Yellow [facility] HospitalpH, urine, byzaaijcwzubiwbi3424-13-39 14:03:00* Test Item Value Reference Range Interpretation Comme nts pH, urine, semiquantitative (test code = 5803-2) 6.0 (unknown unit) 5.0-7.5 [facility] Hospitalspecific gravity, body engys0126-91-21 14:03:00* Test Item Value Reference Range Interpretation Comme nts specific gravity, body fluid (test code = 2964-5) 1.020 (unknown unit) 1.005-1.030 [facility] HospitalNeisseria gonorrhoeae, throat qpmghrv4488-31-22 14:03:00 * Test Item Value Reference Range Interpretation Comme nts Neisseria gonorrhoeae, throa t culture (test code = 3553) Negative Negative [facility] HospitalNeisseria gonorrhoeae DNA iixcw3722-41-16 14:03:00* Test Item Value Reference Range Interpretation Comme nts Neisseria gonorrhoeae DNA pr obe (test code = 83747-2) Negative Negative [facility] Healthchlamydia DNA woegh7257-34-34 14:03:00* Test Item Value Reference Range Interpretation Comme nts chlamydia DNA probe (test co de = 09585-7) Negative Negative [facility] Healthhepatitis B core antibody, uuchz1890-25-12 14:03:00* Test Item Value Reference Range Interpretation Comme nts hepatitis B core antibody, t otal (test code = 77) Negative Negative [facility] Healthhepatitis B surface oqlsicp5295-24-29 14:03:00* Test Item Value Reference Range Interpretation Comme nts hepatitis B surface antigen (test code = 79) Negative Negative [facility] Healthbilirubin, serum, lwkxen3080-56-48 14:03:00* Test Item Value Reference Range Interpretation Comme nts bilirubin, serum, direct (te st code = 1968-7) <0.10 mg/dL 0.00-0.40 [facility] Healthhepatitis C antibody, pmisk9242-87-71 14:03:00* Test Item Value Reference Range Interpretation Comme nts hepatitis C antibody, serum (test code = 5199-5) <0.1 0.0-0.9 [facility] HealthHIV-2 antibodies, western jxiu1585-20-18 14:03:00* Test Item Value Reference Range Interpretation Comme nts HIV-2 antibodies, western bl ot (test code = 73549) Indeterminate Negative A [facility] HealthHIV-1/HIV-2 Ab, dpznj3438-10-95 14:03:00* Test Item Value Reference Range Interpretation Comme nts HIV-1/HIV-2 Ab, serum (test code = 3399) Positive Negative A [facility] HealthHIV-CMIA (Chemiluminescent Microparticle Immuno Assay) 2021-01-06 14:03:00* Test Item Value Reference Range Interpretation Comme nts HIV-CMIA (Chemiluminescent Microparticle Immuno Assay) (test code = 124786) Reactive Non Reactive A [facility] Healthvitamin D 25-hydroxy, wzfds2759-98-84 14:03:00* Test Item Value Reference Range Interpretation Comme nts vitamin D 25-hydroxy, serum (test code = 69821-9) 34.3 ng/mL 30.0-100.0 [facility] Hospitalrad plasma reagin antibody, nxxpm9157-93-54 14:03:00* Test Item Value Reference Range Interpretation Comme nts rapid plasma reagin antibody , serum (test code = 5291-0) Non Reactive Non Reactive [facility] leukocyte antigen [id number] 14:03:00* Test Item Value Reference Range Interpretation Comme nts human leukocyte antigen B57 (test code = 842648) Negative [facility] Hospitaltoxoplasma gondii antibody, CpL6443-27-21 14:03:00* Test Item Value Reference Range Interpretation Comme [facility] toxoplasma gondii antibody, IgG (test code = 2430) <3.0 0.0-7.1 [facility] Hospitalhepatitis B surface miufejpk5023-14-59 14:03:00* Test Item Value Reference Range Interpretation Comme [facility] hepatitis B surface antibody (test code = 78) Non Reactive [facility] chorionic gonadotropin, total, leuyy9101-17-31 14:03:00* Test Item Value Reference Range Interpretation Comme [facility] human chorionic gonadotropin , total, serum (test code = 3386) <1 mIU/mL [facility] Hospitalthyroid stimulating hormone, rwjzq2915-32-73 14:03:00* Test Item Value Reference Range Interpretation Comme [facility] thyroid stimulating hormone, serum (test code = 3016-3) 1.020 u[IU]/mL 0.450-4.500 [facility] Hospitalhemoglobin A1C, blood, as % of total vofizcxgsi6849-12-40 14:03:00* Test Item Value Reference Range Interpretation Comme nts hemoglobin A1C, blood, as % of total hemoglobin (test code = 4548-4) 6.0 % 4.8-5.6 H [facility] Hospitalfolate, crual2516-32-47 14:03:00* Test Item Value Reference Range Interpretation Comme nts folate, serum (test code = 2284-8) 10.8 ng/mL >3.0 [facility] HospitalB-12, spxuo7195-86-24 14:03:00* Test Item Value Reference Range Interpretation Comme nts B-12, serum (test code = 2132-9) 577 pg/mL 232-1245 [facility] percent, auwsj3811-00-99 14:03:00* Test Item Value Reference Range Interpretation Comme nts iron saturation percent, ser um (test code = 2502-3) 17 % 15-55 [facility]ern, etoik0551-12-44 14:03:00* Test Item Value Reference Range Interpretation Comme nts iron, serum (test code = 2498-4) 33 ug/dL 27-159 [facility] binding capacity, mfohwsjrnro9882-04-05 14:03:00* Test Item Value Reference Range Interpretation Comme nts iron binding capacity, unsat urated (test code = 2501-5) 158 ug/dL 131-425 [facility] binding capacity, ukibk2267-03-86 14:03:00* Test Item Value Reference Range Interpretation Comme nts iron binding capacity, total (test code = 2500-7) 191 ug/dL 250-450 L [facility] Hospitalalanine aminotransferase (SGPT), euuic7946-30-66 14:03:00 * Test Item Value Reference Range Interpretation Comme nts alanine aminotransferase (SG PT), serum (test code = 1742-6) 12 1/L 0-32 [facility] Hospitalaspartate aminotransferase (SGOT), vtewq9656-97-38 14:03:00* Test Item Value Reference Range Interpretation Comme nts aspartate aminotransferase ( SGOT), serum (test code = 1920-8) 20 1/L 0-40 [facility] Hospitalalkaline phosphatase, flozp4102-54-68 14:03:00* Test Item Value Reference Range Interpretation Comme nts alkaline phosphatase, serum (test code = 1783-0) 60 1/L 44-121 [facility] Hospitalbilirubin, serum, refmc5194-89-45 14:03:00* Test Item Value Reference Range Interpretation Comme nts bilirubin, serum, total (iveth t code = 1975-2) <0.2 mg/dL 0.0-1.2 [facility] Hospitalalbumin/globulin ratio, tzcwi5662-65-26 14:03:00* Test Item Value Reference Range Interpretation Comme nts albumin/globulin ratio, serum (test code = 1759-0) 1.0 (unknown unit) 1.2-2.2 L [facility] Hospitalglobulin, irqtz4325-01-58 14:03:00* Test Item Value Reference Range Interpretation Comme nts globulin, serum (test code = 2336-6) 3.7 (unknown unit) 1.5-4.5 [facility] Healthalbumin, znsvu4090-44-29 14:03:00* Test Item Value Reference Range Interpretation Comme nts albumin, serum (test code = 1751-7) 3.7 g/dL 3.8-4.8 L [facility] Healthprotein, total, tkgdf6746-52-19 14:03:00* Test Item Value Reference Range Interpretation Comme nts protein, total, serum (test code = 2885-2) 7.4 g/dL 6.0-8.5 [facility] Healthcalcium, dovpm9334-77-45 14:03:00* Test Item Value Reference Range Interpretation Comme nts calcium, serum (test code = 2000-8) 9.0 mg/dL 8.7-10.2 [facility] Hospitalcarbon dioxide, venous thwnk2714-88-55 14:03:00* Test Item Value Reference Range Interpretation Comme nts carbon dioxide, venous blood (test code = 2027-1) 24 mmol/L 20-29 [facility] Healthchloride, efsyb8317-56-11 14:03:00* Test Item Value Reference Range Interpretation Comme nts chloride, serum (test code = 2075-0) 102 mmol/L 96-106 [facility] Healthpotassium, jbbmc0187-51-60 14:03:00* Test Item Value Reference Range Interpretation Comme nts potassium, serum (test code = 2823-3) 3.6 mmol/L 3.5-5.2 [facility] Healthsodium, ffypr8284-42-32 14:03:00* Test Item Value Reference Range Interpretation Comme nts sodium, serum (test code = 2951-2) 140 mmol/L 134-144 [facility] Healthurea nitrogen/creatinine ratio, znefn7044-34-86 14:03:00 * Test Item Value Reference Range Interpretation Comme nts urea nitrogen/creatinine ratio, serum (test code = 3097-3) 10 (unknown unit) 9-23 [facility] HealtheGFR if Fwxcflxo1708-85-04 14:03:00* Test Item Value Reference Range Interpretation Comme nts eGFR if (test code = 14172-1) 98 mL/min/{1.73 m2} >59 [facility] HospitalEstimated Glomerular Filtration Rate (calc)2021-01-06 14:03:00* Test Item Value Reference Range Interpretation Comme nts Estimated Glomerular Filtration Rate (calc) (test code = 27095-2) 85 mL/min/{1.73 m2} >59 [facility] Hospitalcreatinine, xinkc2238-82-88 14:03:00* Test Item Value Reference Range Interpretation Comme nts creatinine, serum (test code = 2160-0) 0.88 mg/dL 0.57-1.00 [facility] Hospitalurea nitrogen, lenxf5144-52-77 14:03:00* Test Item Value Reference Range Interpretation Comme nts urea nitrogen, blood (test c ode = 3094-0) 9 mg/dL 6-20 [facility] Hospitalblood glucose, zpoyfv6006-56-02 14:03:00* Test Item Value Reference Range Interpretation Comme nts blood glucose, random (test code = 2339-0) 95 mg/dL 65-99 [facility] Hospitalimmature granulocytes, percentage of total cells, blood 2021-01-06 14:03:00* Test Item Value Reference Range Interpretation Comme nts immature granulocytes, perce ntage of total cells, blood (test code = 91968-5) 1 % [facility] Hospitalbasophil count, tisjtdzq1987-25-22 14:03:00* Test Item Value Reference Range Interpretation Comme nts basophil count, absolute (te st code = 55348-1) 0.0 x10E3/uL 0.0-0.2 [facility] HospitalEosinophil Absolute Jvmfk7496-25-32 14:03:00* Test Item Value Reference Range Interpretation Comme nts Eosinophil Absolute Count (t est code = 51906-0) 0.2 X10E3/UL 0.0-0.4 [facility] Hospitalmonocyte count, blood, fafiighma7416-12-07 14:03:00* Test Item Value Reference Range Interpretation Comme nts monocyte count, blood, autom ated (test code = 742-7) 0.6 X10E3/UL 0.1-0.9 [facility] Hospitallymphocyte count, blood, vjpiachfo9440-23-33 14:03:00* Test Item Value Reference Range Interpretation Comme nts lymphocyte count, blood, automated (test code = 731-0) 0.7 X10E3/UL 0.7-3.1 [facility] HospitalAbsolute Jujqphwgjsk8241-01-75 14:03:00* Test Item Value Reference Range Interpretation Comme nts Absolute Neutrophils (test c ode = 28356-8) 4.3 X10E3/UL 1.4-7.0 [facility] Hospitalbasophils as percent of blood hmxycvgyeq9107-60-63 14:03:00* Test Item Value Reference Range Interpretation Comme nts basophils as percent of bloo d leukocytes (test code = 707-0) 0 % [facility] Hospitaleosinophils as percent of blood zydfbkfelw9372-44-52 14:03:00* Test Item Value Reference Range Interpretation Comme nts eosinophils as percent of bl ood leukocytes (test code = 713-8) 3 % [facility] Hospitalmonocytes as percent of blood skfunyizwr7044-88-25 14:03:00* Test Item Value Reference Range Interpretation Comme nts monocytes as percent of bloo d leukocytes (test code = 5905-5) 11 % [facility] Hospitallymphocytes as percent of blood jqjfmecgbw7642-59-80 14:03:00* Test Item Value Reference Range Interpretation Comme nts lymphocytes as percent of bl ood leukocytes (test code = 736-9) 12 % [facility] Hospitalneutrophils as percent of blood ajbwrtuacq4855-43-93 14:03:00* Test Item Value Reference Range Interpretation Comme nts neutrophils as percent of bl ood leukocytes (test code = 770-8) 73 % [facility] Hospitalplatelet waxgt7608-01-95 14:03:00* Test Item Value Reference Range Interpretation Comme [facility] platelet count (test code = 777-3) 242 X10E3/UL 150-450 [facility] Hospitalred blood cell distribution xuobf4426-54-59 14:03:00* Test Item Value Reference Range Interpretation Comme [facility] red blood cell distribution width (test code = 788-0) 14.4 % 11.7-15.4 [facility] Hospitalmean corpuscular hemoglobin concentration, YYG7809-65-40 14:03:00* Test Item Value Reference Range Interpretation Comme [facility] mean corpuscular hemoglobin concentration, RBC (test code = 786-4) 32.4 G/DL 31.5-35.7 [facility] corpus[facility] hemoglobin, CJJ7106-55-47 14:03:00* Test Item Value Reference Range Interpretation Comme [facility] mean corpuscular hemoglobin, RBC (test code = 785-6) 27.4 pg 26.6-33.0 [facility]an corpuscular volume, CFM8325-85-75 14:03:00* Test Item Value Reference Range Interpretation Comme [facility] mean corpuscular volume, RBC (test code = 787-2) 85 fL 79-97 [facility] Hospitalhematocrit, lbcsk5136-24-14 14:03:00* Test Item Value Reference Range Interpretation Comme [facility] hematocrit, blood (test code = 4544-3) 31.2 % 34.0-46. 6 L [facility] Hospitalhemoglobin, helcl3049-34-00 14:03:00* Test Item Value Reference Range Interpretation Comme [facility] hemoglobin, blood (test code = 718-7) 10.1 g/dL 11.1-15.9 L [facility] Hospitalerythrocyte (RBC) oxxxj2703-99-46 14:03:00* Test Item Value Reference Range Interpretation Comme [facility] erythrocyte (RBC) count (iveth t code = 789-8) 3.69 X10E6/UL 3.77-5.28 L [facility] Hospitalleukocyte count, sxcjn7086-44-82 14:03:00* Test Item Value Reference Range Interpretation Comme [facility] leukocyte count, blood (test code = 6690-2) 5.9 X10E3/UL 3.4-10.8 [facility] HospitalCD4/CD8 uuwpe6477-72-75 14:03:00* Test Item Value Reference Range Interpretation Comme [facility] CD4/CD8 ratio (test code = 96488) 0.06 (unknown unit) 0.92-3.72 L [facility] HospitalT-suppressor cells (CD8) as percent of blood lymphocytes 2021-01-06 14:03:00* Test Item Value Reference Range Interpretation Comme [facility] T-suppressor cells (CD8) as percent of blood lymphocytes (test code = 3517) 65.8 % 12.0-35.5 H [facility] Healthabsolute [id number] 14:03:00* Test Item Value Reference Range Interpretation Comme nts absolute CD8 (test code = 48306) 461 (unknown unit) 109-897 [facility] HospitalT-helper cells (CD4) as percent of blood lymphocytes 2021-01-06 14:03:00* Test Item Value Reference Range Interpretation Comme nts T-helper cells (CD4) as perc ent of blood lymphocytes (test code = 8123-2) 4.0 % 30.8-58.5 L [facility] HospitalT-helper cells (CD4) jveiy3838-20-06 14:03:00* Test Item Value Reference Range Interpretation Comme nts T-helper cells (CD4) count ( test code = 12776-2) 28 /UL 359-1519 L [facility] HospitalHIV genotype uourqa0168-94-70 14:03:00* Test Item Value Reference Range Interpretation Comme [facility] HIV genotype result (test co de = 03224) GENRTI [facility] HealthHIV-1RNA, serum, by PCR, jdlmhnaquycq6657-78-93 14:03:00 * Test Item Value Reference Range Interpretation Comme [facility] HIV-1RNA, serum, by PCR, quantitative (test code = 97694) 032025 /mL [facility] Hospitalhepatitis B core antibody, ymdsc5525-29-24 14:03:00* Test Item Value Reference Range Interpretation Comme nts hepatitis B core antibody, t otal (test code = 02309-8) Negative Negative [facility] Hospitalhepatitis B surface iufuxds4367-08-12 14:03:00* Test Item Value Reference Range Interpretation Comme nts hepatitis B surface antigen (test code = 60477-8) Negative Negative [facility] Hospitalhepatitis C antibody, lbjwg7300-35-16 14:03:00* Test Item Value Reference Range Interpretation Comme nts hepatitis C antibody, serum (test code = 50134-0) <0.1 0.0-0.9 [facility] HospitalHIV-2 antibodies, western mdag4414-72-17 14:03:00* Test Item Value Reference Range Interpretation Comme nts HIV-2 antibodies, western bl ot (test code = 96613-8) Indeterminate Negative A [facility] HospitalHIV-1/HIV-2 Ab, lbqax4857-42-99 14:03:00* Test Item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 15:35:00* Test Item Value Reference Range Interpretation Comme [facility] hematocrit, blood (test code = 4544-3) 38.1 % 34.0-46. 6 [facility] Hospitalhemoglobin, tvqmj8964-29-46 15:35:00* Test Item Value Reference Range Interpretation Comme [facility] hemoglobin, blood (test code = 718-7) 12.5 g/dL 11.1-15.9 [facility] Hospitalerythrocyte (RBC) tfopk8111-94-44 15:35:00* Test Item Value Reference Range Interpretation Comme [facility] erythrocyte (RBC) count (iveth t code = 789-8) 4.15 X10E6/UL 3.77-5.28 [facility] Hospitalleukocyte count, buqyd4449-14-53 15:35:00* Test Item Value Reference Range Interpretation Comme nts leukocyte count, blood (test code = 6690-2) 6.0 X10E3/UL 3.4-10.8 [facility] HospitalT-helper cells (CD4) as percent of blood lymphocytes 2019-06-14 15:35:00* Test Item Value Reference Range Interpretation Comme nts T-helper cells (CD4) as perc ent of blood lymphocytes (test code = 8123-2) 17.5 % 30.8-58.5 L [facility] HospitalT-helper cells (CD4) yjmzo5288-86-44 15:35:00* Test Item Value Reference Range Interpretation Comme nts T-helper cells (CD4) count ( test code = 37959-0) 123 /UL 359-1519 L [facility] HospitalHIV-1RNA, serum, by PCR, chkijwxazvxc4824-63-21 15:35:00 * Test Item Value Reference Range Interpretation Comme nts HIV-1RNA, serum, by PCR, quantitative (test code = 54023-4) 1240 /mL [facility] HospitalCD4/CD8 hquzr3561-12-22 15:35:00* Test Item Value Reference Range Interpretation Comme [facility] CD4/CD8 ratio (test code = 55290) 0.30 (unknown unit) 0.92-3.72 L [facility] HospitalT-suppressor cells (CD8) as percent of blood lymphocytes 2019-06-14 15:35:00* Test Item Value Reference Range Interpretation Comme nts T-suppressor cells (CD8) as percent of blood lymphocytes (test code = 3517) 57.7 % 12.0-35.5 H [facility] Hospitalabsolute VK76305-97-97 15:35:00* Test Item Value Reference Range Interpretation Comme nts absolute CD8 (test code = 05273) 404 (unknown unit) 109-897 [facility] HospitalHIV-1RNA, serum, by PCR, pdlygjuhqrbj3395-69-93 15:35:00 * Test Item Value Reference Range Interpretation Comme nts HIV-1RNA, serum, by PCR, quantitative (test code = 54681) 1240 /mL [facility] HospitalCD4/CD8 jmxvm3282-96-95 15:35:00* Test Item Value Reference Range Interpretation Comme nts CD4/CD8 ratio (test code = 78091) 0.30 (unknown unit) 0.92-3.72 L [facility] HospitalT-suppressor cells (CD8) as percent of blood lymphocytes 2019-06-14 15:35:00* Test Item Value Reference Range Interpretation Comme nts T-suppressor cells (CD8) as percent of blood lymphocytes (test code = 3517) 57.7 % 12.0-35.5 H [facility] Hospitalabsolute NU89598-80-70 15:35:00* Test Item Value Reference Range Interpretation Comme nts absolute CD8 (test code = 51179) 404 (unknown unit) 109-897 [facility] Hospitalrapid plasma reagin antibody, clyuc7468-54-05 15:12:00* Test Item Value Reference Range Interpretation Comme nts rapid plasma reagin antibody , serum (test code = 5291-0) Non Reactive Non Reactive [facility] Hospitalalanine aminotransferase (SGPT), umcdt9284-39-35 15:12:00 * Test Item Value Reference Range Interpretation Comme nts alanine aminotransferase (SG PT), serum (test code = 1742-6) 36 1/L 0-32 H [facility] Hospitalaspartate aminotransferase (SGOT), qocsy7173-62-66 15:12:00* Test Item Value Reference Range Interpretation Comme nts aspartate aminotransferase ( SGOT), serum (test code = 1920-8) 38 1/L 0-40 [facility] Hospitalalkaline phosphatase, jehfj8559-02-90 15:12:00* Test Item Value Reference Range Interpretation Comme nts alkaline phosphatase, serum (test code = 1783-0) 77 1/L 39-117 [facility] Hospitalbilirubin, serum, gudyv0356-61-00 15:12:00* Test Item Value Reference Range Interpretation Comme nts bilirubin, serum, total (iveth t code = 1975-2) <0.2 mg/dL 0.0-1.2 [facility] Hospitalalbumin/globulin ratio, zeplv7060-15-22 15:12:00* Test Item Value Reference Range Interpretation Comme nts albumin/globulin ratio, serum (test code = 1759-0) 1.1 (unknown unit) 1.2-2.2 L [facility] Hospitalglobulin, awrcy8709-20-77 15:12:00* Test Item Value Reference Range Interpretation Comme nts globulin, serum (test code = 2336-6) 3.3 (unknown unit) 1.5-4.5 [facility] Healthalbumin, cwfla4557-20-98 15:12:00* Test Item Value Reference Range Interpretation Comme nts albumin, serum (test code = 1751-7) 3.5 g/dL 3.5-5.5 [facility] Healthprotein, total, [id number] 15:12:00* Test Item Value Reference Range Interpretation Comme nts protein, total, serum (test code = 2885-2) 6.8 g/dL 6.0-8.5 [facility] Healthcalcium, sdqec2003-28-43 15:12:00* Test Item Value Reference Range Interpretation Comme nts calcium, serum (test code = 2000-8) 8.3 mg/dL 8.7-10.2 L [facility]carbon dioxide, venous dshac8505-94-50 15:12:00* Test Item Value Reference Range Interpretation Comme nts carbon dioxide, venous blood (test code = 2027-1) 22 mmol/L 20-29 [facility] Healthchloride, soqel6072-73-54 15:12:00* Test Item Value Reference Range Interpretation Comme nts chloride, serum (test code = 2075-0) 105 mmol/L 96-106 [facility] Healthpotassium, kdhkd1786-99-30 15:12:00* Test Item Value Reference Range Interpretation Comme nts potassium, serum (test code = 2823-3) 3.3 mmol/L 3.5-5.2 L [facility] Healthsodium, lyfcl2905-71-60 15:12:00* Test Item Value Reference Range Interpretation Comme nts sodium, serum (test code = 2951-2) 142 mmol/L 134-144 [facility] Healthurea nitrogen/creatinine ratio, vtidr7712-63-76 15:12:00 * Test Item Value Reference Range Interpretation Comme nts urea nitrogen/creatinine ratio, serum (test code = 3097-3) 20 (unknown unit) 9-23 [facility] HealtheGFR if Pwrxvywf1917-61-95 15:12:00* Test Item Value Reference Range Interpretation Comme nts eGFR if (test code = 93341-5) 137 mL/min/{1.73 m2} >59 [facility] HospitalEstimated Glomerular Filtration Rate (calc)2019-01-19 15:12:00* Test Item Value Reference Range Interpretation Comme nts Estimated Glomerular Filtration Rate (calc) (test code = 76820-9) 119 mL/min/{1.73 m2} >59 [facility] Hospitalcreatinine, qxjbg6220-46-13 15:12:00* Test Item Value Reference Range Interpretation Comme nts creatinine, serum (test code = 2160-0) 0.61 mg/dL 0.57-1.00 [facility] Hospitalurea nitrogen, kcrep3358-18-08 15:12:00* Test Item Value Reference Range Interpretation Comme nts urea nitrogen, blood (test c ode = 3094-0) 12 mg/dL 6-20 [facility] Hospitalblood glucose, gshwow9739-88-07 15:12:00* Test Item Value Reference Range Interpretation Comme nts blood glucose, random (test code = 2339-0) 99 mg/dL 65-99 [facility] Hospitalimmature granulocytes, percentage of total cells, blood 2019-01-19 15:12:00* Test Item Value Reference Range Interpretation Comme nts immature granulocytes, perce ntage of total cells, blood (test code = 74686-7) 1 % [facility] Hospitalbasophil count, sqqmqryh9402-29-87 15:12:00* Test Item Value Reference Range Interpretation Comme nts basophil count, absolute (te st code = 11524-7) 0.0 x10E3/uL 0.0-0.2 [facility] HospitalEosinophil Absolute Rkdhg7508-23-44 15:12:00* Test Item Value Reference Range Interpretation Comme nts Eosinophil Absolute Count (t est code = 96669-7) 0.1 X10E3/UL 0.0-0.4 [facility] Hospitalmonocyte count, blood, crvluhrsg1649-90-60 15:12:00* Test Item Value Reference Range Interpretation Comme nts monocyte count, blood, autom ated (test code = 742-7) 0.7 X10E3/UL 0.1-0.9 [facility] Hospitallymphocyte count, blood, zmwlggbrj3055-22-03 15:12:00* Test Item Value Reference Range Interpretation Comme nts lymphocyte count, blood, automated (test code = 731-0) 1.1 X10E3/UL 0.7-3.1 [facility] HospitalAbsolute Bkhbtsswyya4895-26-19 15:12:00* Test Item Value Reference Range Interpretation Comme nts Absolute Neutrophils (test c ode = 56523-2) 2.2 X10E3/UL 1.4-7.0 [facility] Hospitalbasophils as percent of blood njunltbdxo7406-53-18 15:12:00* Test Item Value Reference Range Interpretation Comme nts basophils as percent of bloo d leukocytes (test code = 707-0) 1 % [facility] Hospitaleosinophils as percent of blood yvhuzvjvll2343-72-76 15:12:00* Test Item Value Reference Range Interpretation Comme nts eosinophils as percent of bl ood leukocytes (test code = 713-8) 3 % [facility] Hospitalmonocytes as percent of blood ishfoenfxe6806-56-28 15:12:00* Test Item Value Reference Range Interpretation Comme nts monocytes as percent of bloo d leukocytes (test code = 5905-5) 16 % [facility] Hospitallymphocytes as percent of blood hsgzlnvlzw2444-45-51 15:12:00* Test Item Value Reference Range Interpretation Comme nts lymphocytes as percent of bl ood leukocytes (test code = 736-9) 27 % [facility] Hospitalneutrophils as percent of blood ullusyoigh0420-61-12 15:12:00* Test Item Value Reference Range Interpretation Comme nts neutrophils as percent of bl ood leukocytes (test code = 770-8) 52 % [facility] Hospitalplatelet fodam3005-76-52 15:12:00* Test Item Value Reference Range Interpretation Comme nts platelet count (test code = 777-3) 307 X10E3/UL 150-450 [facility] Hospitalred blood cell distribution rldxo5409-31-08 15:12:00* Test Item Value Reference Range Interpretation Comme [facility] red blood cell distribution width (test code = 788-0) 22.9 % 12.3-15.4 H [facility] Hospitalmean corpuscular hemoglobin concentration, GZR9110-91-55 15:12:00* Test Item Value Reference Range Interpretation Comme nts mean corpuscular hemoglobin concentration, RBC (test code = 786-4) 30.0 G/DL 31.5-35.7 L [facility] Hospitalmean corpuscular hemoglobin, [id number] 15:12:00* Test Item Value Reference Range Interpretation Comme [facility] mean corpuscular hemoglobin, RBC (test code = 785-6) 29.2 pg 26.6-33.0 [facility], AXG9528-74-35 15:12:00* Test Item Value Reference Range Interpretation Comme [facility] mean corpuscular volume, RBC (test code = 787-2) 98 fL 79-97 H [facility] Hospitalhematocrit, rdmor8963-09-31 15:12:00* Test Item Value Reference Range Interpretation Comme [facility] hematocrit, blood (test code = 4544-3) 31.0 % 34.0-46. 6 L [facility] Hospitalhemoglobin, jrmwc1536-69-36 15:12:00* Test Item Value Reference Range Interpretation Comme [facility] hemoglobin, blood (test code = 718-7) 9.3 g/dL 11.1-15.9 L [facility] Hospitalerythrocyte (RBC) tiivi6268-36-91 15:12:00* Test Item Value Reference Range Interpretation Comme [facility] erythrocyte (RBC) count (iveth t code = 789-8) 3.18 X10E6/UL 3.77-5.28 L [facility] Hospitalleukocyte count, xiczd3326-44-86 15:12:00* Test Item Value Reference Range Interpretation Comme [facility] leukocyte count, blood (test code = 6690-2) 4.1 X10E3/UL 3.4-10.8 [facility] HospitalT-helper cells (CD4) as percent of blood lymphocytes 2019-01-19 15:12:00* Test Item Value Reference Range Interpretation Comme [facility] T-helper cells (CD4) as perc ent of blood lymphocytes (test code = 8123-2) 11.5 % 30.8-58.5 L [facility] HospitalT-helper cells (CD4) emjvx1924-59-29 15:12:00* Test Item Value Reference Range Interpretation Comme [facility] T-helper cells (CD4) count ( test code = 40431-4) 127 /UL 359-1519 L [facility] HospitalHIV-1RNA, serum, by PCR, utnberzaytrx8174-72-38 15:12:00 * Test Item Value Reference Range Interpretation Comme nts HIV-1RNA, serum, by PCR, quantitative (test code = 70578-0) 752026 /mL [facility] HospitalCD4/CD8 vcpnh5067-55-98 15:12:00* Test Item Value Reference Range Interpretation Comme nts CD4/CD8 ratio (test code = 57757) 0.15 (unknown unit) 0.92-3.72 L [facility] HospitalT-suppressor cells (CD8) as percent of blood lymphocytes 2019-01-19 15:12:00* Test Item Value Reference Range Interpretation Comme nts T-suppressor cells (CD8) as percent of blood lymphocytes (test code = 3517) 77.3 % 12.0-35.5 H [facility] Hospitalabsolsyracuse [id number] 15:12:00* Test Item Value Reference Range Interpretation Comme nts absolute CD8 (test code = 76062) 850 (unknown unit) 109-897 [facility] HospitalHIV-1RNA, serum, by PCR, tjasfkfeputr9924-56-12 15:12:00 * Test Item Value Reference Range Interpretation Comme nts HIV-1RNA, serum, by PCR, quantitative (test code = 58496) 916929 /mL [facility] HospitalCD4/CD8 yqqtz9295-90-08 15:12:00* Test Item Value Reference Range Interpretation Comme nts CD4/CD8 ratio (test code = 90507) 0.15 (unknown unit) 0.92-3.72 L [facility] HospitalT-suppressor cells (CD8) as percent of blood lymphocytes 2019-01-19 15:12:00* Test Item Value Reference Range Interpretation Comme nts T-suppressor cells (CD8) as percent of blood lymphocytes (test code = 3517) 77.3 % 12.0-35.5 H [facility] [id number] 15:12:00* Test Item Value Reference Range Interpretation Comme nts absolute CD8 (test code = 01106) 850 (unknown unit) 109-897 [facility] HospitalNeisseria gonorrhoeae DNA bbiwl8843-62-82 14:55:00* Test Item Value Reference Range Interpretation Comme nts Neisseria gonorrhoeae DNA pr obe (test code = 00150-9) Negative Negative [facility]ch[facility] girjs5213-30-89 14:55:00* Test Item Value Reference Range Interpretation Comme nts chlamydia DNA probe (test co de = 42522-4) Negative Negative [facility] HealthNeisseria gonorrhoeae DNA oudqf8258-86-23 14:55:00* Test Item Value Reference Range Interpretation Comme nts Neisseria gonorrhoeae DNA pr obe (test code = 95651-3) Negative Negative [facility] HealthLACTIC ACID PLY7263-49-58 02:28:00* Test Item Value Reference Range Interpretation Comme nts LACTIC ACID POC (test code = LACTP) 0.80 MMOL/L 0.90-1.70 L BASIC METABOLIC BFJRF2274-48-74 02:12:00* Test Item Value Reference Range Interpretation [...] LDH) 356 Unit/L 84-246 H CBC W/O QTGX2967-61-18 02:03:00* Test Item Value Reference Range Interpretation [...] = MPV) 11.00 fL 7.0-10.5 H HCG YNO1836-76-06 02:00:00* Test Item Value Reference Range Interpretation [...] after 48 hours - XR CHEST 1 [id number] 01:45:00Name: ADEEL DEL TORO [facility] : 1985 Age/S: 33 / F [address] [facility]: [id number] Loc: [place] [address] Phys: Domo Woodson MD Acct: [id number] Dis Date: Status: REG ER PHONE #: [phone] Exam Date: 10/25/2018 0140 FAX #: Reason: SOB EXAMS: CPT: [id number] XR CHEST 1 V 97894 Fluoro Time: DAP (Gy m2): Air Kerma [...] 1 Signed Report Name: ADEEL DEL TORO [place] : 1985 Age/S: 33 / F [address] [address] [place] Unit#: [id number] Loc: [place] [address] Phys: Domo Woodson MD Acct: [id number] Dis Date: Status: REG ER PHONE #: [phone] Exam Date: 10/25/2018 0140 FAX #: Reason: SOB EXAMS: CPT: [id number] XRCHEST 1 V 34541 Fluoro Time: DAP (Gy m2): Air Kerma (mGy): (Continued) Technologist: Dat Zhong, RT(R); Leonidas Del Rosario RT(R)(CT) Trnscb Date/Time: 10/25/2018 (014) [id number] Orig Print D/T: S: 10/25/2018 (0148) PAGE 2 Signed ReportNeisseria gonorrhoeae DNA irixy8376-35-33 11:43:00* Test Item Value Reference Range Interpretation Comme nts Neisseria gonorrhoeae DNA pr obe (test code = 99227-0) Negative Negative [facility] HospitalNeisseria gonorrhoeae DNA pnbbb2630-05-91 11:43:00* Test Item Value Reference Range Interpretation Comme nts Neisseria gonorrhoeae DNA pr obe (test code = 79590-3) Negative Negative [facility] Hospitalchlamydia DNA omrmf7292-25-89 11:43:00* Test Item Value Reference Range Interpretation Comme nts chlamydia DNA probe (test co de = 88757-6) Negative Negative [facility] HospitalLDL cholesterol, qzgxj4887-78-41 11:38:00* Test Item Value Reference Range Interpretation Comme nts LDL cholesterol, serum (test code = 2089-1) 109 mg/dL 0-99 [facility] [place] low density jpfvtofkgaox9518-80-92 11:38:00* Test Item Value Reference Range Interpretation Comme nts very low density lipoprotein s (test code = 2091-7) 17 mg/dL 5-40 [facility] HospitalHDL cholesterol, swkys5997-07-67 11:38:00* Test Item Value Reference Range Interpretation Comme [facility] HDL cholesterol, serum (test code = 2085-9) 34 mg/dL >39 L [facility] Hospitaltriglyceride, serum, pizhtrm4191-16-97 11:38:00* Test Item Value Reference Range Interpretation Comme [facility] triglyceride, serum, fasting (test code = 2571-8) 84 mg/dL 0-149 [facility] Hospitalcholesterol, bayun3300-45-38 11:38:00* Test Item Value Reference Range Interpretation Comme [facility] cholesterol, serum (test cod e = 2093-3) 160 mg/dL 100-199 [facility] Hospitalleukocyte count, bkbzw9829-70-67 11:29:00* Test Item Value Reference Range Interpretation Comme [facility] leukocyte count, blood (test code = 6690-2) 4.5 X10E3/UL 3.4-10.8 [facility] HospitalT-helper cells (CD4) as percent of blood lymphocytes 2018-07-05 11:29:00* Test Item Value Reference Range Interpretation [facility] T-helper cells (CD4) as perc ent of blood lymphocytes (test code = 8123-2) 2.5 % 30.8-58.5 L [facility] HospitalT-helper cells (CD4) rxogp9292-12-05 11:29:00* Test Item Value Reference Range Interpretation [facility] T-helper cells (CD4) count ( test code = 39508-0) 15 /UL 359-1519 L [facility] HospitalHIV-1RNA, serum, by PCR, lfekvkrdeztc2350-91-84 11:29:00 * Test Item Value Reference Range Interpretation [facility] HIV-1RNA, serum, by PCR, quantitative (test code = 26587-4) 105215 /mL [facility] HospitalCD4/CD8 hhunh3650-30-97 11:29:00* Test Item Value Reference Range Interpretation [facility] CD4/CD8 ratio (test code = 10369) 0.04 (unknown unit) 0.92-3.72 L [facility] HospitalT-suppressor cells (CD8) as percent of blood lymphocytes 2018-07-05 11:29:00* Test Item Value Reference Range Interpretation Comme [facility] T-suppressor cells (CD8) as percent of blood lymphocytes (test code = 3517) 64.5 % 12.0-35.5 H [facility] Hospitalabsolute [id number] 11:29:00* Test Item Value Reference Range Interpretation Comme nts absolute CD8 (test code = 41033) 387 (unknown unit) 109897 [facility] HospitalHIV-1RNA, serum, by PCR, ahgarmksaumg1040-48-52 11:29:00 * Test Item Value Reference Range Interpretation Comme nts HIV-1RNA, serum, by PCR, quantitative (test code = 34194) 060260 /mL [facility] HospitalCD4/CD8 hqcjg0798-01-18 11:29:00* Test Item Value Reference Range Interpretation Comme nts CD4/CD8 ratio (test code = 39536) 0.04 (unknown unit) 0.92-3.72 L [facility] HospitalT-suppressor cells (CD8) as percent of blood lymphocytes 2018-07-05 11:29:00* Test Item Value Reference Range Interpretation Comme nts T-suppressor cells (CD8) as percent of blood lymphocytes (test code = 3517) 64.5 % 12.0-35.5 H [facility] Hospitalabsolute [id number] 11:29:00* Test Item Value Reference Range Interpretation Comme nts absolute CD8 (test code = 60805) 387 (unknown unit) 109897 [facility] Hospitalrapid plasma reagin antibody, aydrp0292-25-84 11:29:00* Test Item Value Reference Range Interpretation Comme nts rapid plasma reagin antibody , serum (test code = 5291-0) Non Reactive Non Reactive [facility] Hospitalalanine aminotransferase (SGPT), crjaq5289-38-76 11:29:00 * Test Item Value Reference Range Interpretation Comme nts alanine aminotransferase (SG PT), serum (test code = 1742-6) 24 1/L 0-32 [facility] Hospitalaspartate aminotransferase (SGOT), sxmfm9043-18-27 11:29:00* Test Item Value Reference Range Interpretation Comme nts aspartate aminotransferase ( SGOT), serum (test code = 1920-8) 35 1/L 0-40 [facility] Hospitalalkaline phosphatase, jntfv6893-22-48 11:29:00* Test Item Value Reference Range Interpretation Comme nts alkaline phosphatase, serum (test code = 1783-0) 59 1/L 39-117 [facility] Healthbilirubin, serum, yorhn5657-76-75 11:29:00* Test Item Value Reference Range Interpretation Comme nts bilirubin, serum, total (iveth t code = 1975-2) 0.4 mg/dL 0.0-1.2 [facility] Healthalbumin/globulin ratio, xckvj7903-55-31 11:29:00* Test Item Value Reference Range Interpretation Comme nts albumin/globulin ratio, serum (test code = 1759-0) 1.3 (unknown unit) 1.2-2.2 [facility] Healthglobulin, ochbk0312-84-56 11:29:00* Test Item Value Reference Range Interpretation Comme nts globulin, serum (test code = 2336-6) 3.2 (unknown unit) 1.5-4.5 [facility] Healthalbumin, ynlbg1865-77-76 11:29:00* Test Item Value Reference Range Interpretation Comme nts albumin, serum (test code = 1751-7) 4.3 g/dL 3.5-5.5 [facility] Healthprotein, total, pavcr5828-77-83 11:29:00* Test Item Value Reference Range Interpretation Comme nts protein, total, serum (test code = 2885-2) 7.5 g/dL 6.0-8.5 [facility] Healthcalcium, ymemf0648-15-08 11:29:00* Test Item Value Reference Range Interpretation Comme nts calcium, serum (test code = 2000-8) 9.2 mg/dL 8.7-10.2 [facility] Hospitalcarbon dioxide, venous ylnii3228-38-06 11:29:00* Test Item Value Reference Range Interpretation Comme nts carbon dioxide, venous blood (test code = 2027-1) 20 mmol/L 20-29 [facility] Healthchloride, cdbyj7801-20-57 11:29:00* Test Item Value Reference Range Interpretation Comme nts chloride, serum (test code = 2075-0) 102 mmol/L 96-106 [facility] Healthpotassium, tdzhs9984-82-44 11:29:00* Test Item Value Reference Range Interpretation Comme nts potassium, serum (test code = 2823-3) 3.6 mmol/L 3.5-5.2 [facility] Hospitalsodium, goidq9222-67-28 11:29:00* Test Item Value Reference Range Interpretation Comme nts sodium, serum (test code = 2951-2) 138 mmol/L 134-144 [facility] Hospitalurea nitrogen/creatinine ratio, fngxf9321-41-26 11:29:00 * Test Item Value Reference Range Interpretation Comme nts urea nitrogen/creatinine ratio, serum (test code = 3097-3) 12 (unknown unit) 12-05 [facility] HealtheGFR if Hvlcctqz5221-26-18 11:29:00* Test Item Value Reference Range Interpretation Comme nts eGFR if (test code = 52329-6) 104 mL/min/{1.73 m2} >59 [facility] HospitalEstimated Glomerular Filtration Rate (calc)2018-07-05 11:29:00* Test Item Value Reference Range Interpretation Comme nts Estimated Glomerular Filtration Rate (calc) (test code = 02693-5) 90 mL/min/{1.73 m2} >59 [facility] Hospitalcreatinine, afzfh8198-91-93 11:29:00* Test Item Value Reference Range Interpretation Comme nts creatinine, serum (test code = 2160-0) 0.85 mg/dL 0.57-1.00 [facility] Hospitalurea nitrogen, qgxzq9556-46-06 11:29:00* Test Item Value Reference Range Interpretation Comme nts urea nitrogen, blood (test c ode = 3094-0) 10 mg/dL 6-20 [facility] Hospitalblood glucose, dfothg3463-97-62 11:29:00* Test Item Value Reference Range Interpretation Comme nts blood glucose, random (test code = 2339-0) 97 mg/dL 65-99 [facility] Hospitalimmature granulocytes, percentage of total cells, blood 2018-07-05 11:29:00* Test Item Value Reference Range Interpretation Comme nts immature granulocytes, perce ntage of total cells, blood (test code = 26328-2) 1 % [facility] Hospitalbasophil count, dvisrwer9060-88-04 11:29:00* Test Item Value Reference Range Interpretation Comme nts basophil count, absolute (te st code = 15775-3) 0.0 x10E3/uL 0.0-0.2 [facility] HealthEosinophil Absolute Rwbne6504-75-80 11:29:00* Test Item Value Reference Range Interpretation Comme nts Eosinophil Absolute Count (t est code = 50236-5) 0.1 X10E3/UL 0.0-0.4 [facility] Healthmonocyte count, blood, objmlgwmq4939-38-52 11:29:00* Test Item Value Reference Range Interpretation Comme nts monocyte count, blood, autom ated (test code = 742-7) 0.6 X10E3/UL 0.1-0.9 [facility] Healthlymphocyte count, blood, kagktjvya5177-34-81 11:29:00* Test Item Value Reference Range Interpretation Comme nts lymphocyte count, blood, automated (test code = 731-0) 0.6 X10E3/UL 0.7-3.1 L [facility] HealthAbsolute Uoycfgviijz2632-69-89 11:29:00* Test Item Value Reference Range Interpretation Comme nts Absolute Neutrophils (test c ode = 40391-5) 3.2 X10E3/UL 1.4-7.0 [facility] Healthbasophils as percent of blood nichttpefn6028-15-84 11:29:00* Test Item Value Reference Range Interpretation Comme nts basophils as percent of bloo d leukocytes (test code = 707-0) 0 % [facility] Healtheosinophils as percent of blood xdkaekmjbk3244-78-19 11:29:00* Test Item Value Reference Range Interpretation Comme nts eosinophils as percent of bl ood leukocytes (test code = 713-8) 2 % [facility] Healthmonocytes as percent of blood wpnqchdsep7048-13-63 11:29:00* Test Item Value Reference Range Interpretation Comme nts monocytes as percent of bloo d leukocytes (test code = 5905-5) 14 % [facility] Healthlymphocytes as percent of blood kmuiakdile9423-37-25 11:29:00* Test Item Value Reference Range Interpretation Comme nts lymphocytes as percent of bl ood leukocytes (test code = 736-9) 13 % [facility] Healthneutrophils as percent of blood zwgcorskpc9506-61-60 11:29:00* Test Item Value Reference Range Interpretation Comme nts neutrophils as percent of bl ood leukocytes (test code = 770-8) 70 % [facility] Hospitalplatelet yotnn9069-30-77 11:29:00* Test Item Value Reference Range Interpretation Comme [facility] platelet count (test code = 777-3) 147 X10E3/UL 150-379 L [facility] Hospitalred blood cell distribution fevad5158-48-34 11:29:00* Test Item Value Reference Range Interpretation Comme [facility] red blood cell distribution width (test code = 788-0) 14.1 % 12.3-15.4 [facility] corpuscular hemoglobin concentration, [id number] 11:29:00* Test Item Value Reference Range Interpretation Comme [facility] mean corpuscular hemoglobin concentration, RBC (test code = 786-4) 33.3 G/DL 31.5-35.7 [facility] corpuscular hemoglobin, [id number] 11:29:00* Test Item Value Reference Range Interpretation Comme [facility] mean corpuscular hemoglobin, RBC (test code = 785-6) 30.1 pg 26.6-33.0 [facility] corpuscular volume, [id number] 11:29:00* Test Item Value Reference Range Interpretation Comme [facility] mean corpuscular volume, RBC (test code = 787-2) 90 fL 79-97 [facility] Hospitalhematocrit, sfjzr0007-23-34 11:29:00* Test Item Value Reference Range Interpretation Comme [facility] hematocrit, blood (test code = 4544-3) 40.5 % 34.0-46. 6 [facility] Hospitalhemoglobin, xatyy3649-09-44 11:29:00* Test Item Value Reference Range Interpretation Comme [facility] hemoglobin, blood (test code = 718-7) 13.5 g/dL 11.1-15.9 [facility] Hospitalerythrocyte (RBC) yqopg2092-37-73 11:29:00* Test Item Value Reference Range Interpretation Comme [facility] erythrocyte (RBC) count (iveth t code = 789-8) 4.48 X10E6/UL 3.77-5.28 [facility] HospitalQuantiferon Gold TB blood test for tuberculosis screening 2017-12-03 13:15:00* Test Item Value Reference Range Interpretation Comme nts Quantiferon Gold TB blood te st for tuberculosis screening (test code = 02685-7) Negative Negative [facility] Healtherythrocyte (RBC) iyvbw1648-10-88 13:09:00* Test Item Value Reference Range Interpretation Comme nts erythrocyte (RBC) count (iveth t code = 789-8) 3.85 X10E6/UL 3.77-5.28 [facility]iss[facility] gonorrhoeae DNA lubee6109-03-88 14:10:00* Test Item Value Reference Range Interpretation Comme nts Neisseria gonorrhoeae DNA pr obe (test code = 33740-6) Negative Negative [facility]chlamydia DNA aonmu4084-29-16 14:10:00* Test Item Value Reference Range Interpretation Comme nts chlamydia DNA probe (test co de = 22571-5) Negative Negative [facility] HospitalNeisseria gonorrhoeae DNA azifp7590-72-09 14:10:00* Test Item Value Reference Range Interpretation Comme nts Neisseria gonorrhoeae DNA pr obe (test code = 49815-5) Negative Negative [facility] Hospitalrapid plasma reagin antibody, kotad0998-70-60 12:50:00* Test Item Value Reference Range Interpretation Comme nts rapid plasma reagin antibody , serum (test code = 5291-0) Non Reactive Non Reactive [facility] Hospitalhepatitis C antibody, svoxm2237-67-93 12:50:00* Test Item Value Reference Range Interpretation Comme nts hepatitis C antibody, serum (test code = 5199-5) <0.1 0.0-0.9 [facility] Hospitalalanine aminotransferase (SGPT), neuzu4366-25-10 12:50:00 * Test Item Value Reference Range Interpretation Comme nts alanine aminotransferase (SG PT), serum (test code = 1742-6) 12 1/L 0-32 [facility] Hospitalaspartate aminotransferase (SGOT), wlpud9213-42-63 12:50:00* Test Item Value Reference Range Interpretation Comme nts aspartate aminotransferase ( SGOT), serum (test code = 1920-8) 21 1/L 0-40 [facility] Hospitalalkaline phosphatase, kaatw6225-63-14 12:50:00* Test Item Value Reference Range Interpretation Comme nts alkaline phosphatase, serum (test code = 1783-0) 61 1/L 39-117 [facility] Healthbilirubin, serum, rmtxh5786-30-45 12:50:00* Test Item Value Reference Range Interpretation Comme nts bilirubin, serum, total (iveth t code = 1975-2) 0.2 mg/dL 0.0-1.2 [facility] Healthalbumin/globulin ratio, pvocs2919-31-96 12:50:00* Test Item Value Reference Range Interpretation Comme nts albumin/globulin ratio, serum (test code = 1759-0) 1.3 (unknown unit) 1.2-2.2 [facility] Healthglobulin, zadlh7130-87-02 12:50:00* Test Item Value Reference Range Interpretation Comme nts globulin, serum (test code = 2336-6) 3.5 (unknown unit) 1.5-4.5 [facility] Healthalbumin, lcdji5682-94-90 12:50:00* Test Item Value Reference Range Interpretation Comme nts albumin, serum (test code = 1751-7) 4.4 g/dL 3.5-5.5 [facility] Healthprotein, total, ypuvf5430-68-25 12:50:00* Test Item Value Reference Range Interpretation Comme nts protein, total, serum (test code = 2885-2) 7.9 g/dL 6.0-8.5 [facility] Healthcalcium, coltg8988-19-78 12:50:00* Test Item Value Reference Range Interpretation Comme nts calcium, serum (test code = 2000-8) 9.5 mg/dL 8.7-10.2 [facility] Hospitalcarbon dioxide, venous govcj3977-17-09 12:50:00* Test Item Value Reference Range Interpretation Comme nts carbon dioxide, venous blood (test code = 2027-1) 23 mmol/L 20-29 [facility] Healthchloride, iyhcc7857-23-87 12:50:00* Test Item Value Reference Range Interpretation Comme nts chloride, serum (test code = 2075-0) 99 mmol/L 96-106 [facility] Healthpotassium, utdot1622-28-86 12:50:00* Test Item Value Reference Range Interpretation Comme nts potassium, serum (test code = 2823-3) 4.1 mmol/L 3.5-5.2 [facility] Hospitalsodium, edfzp9971-43-16 12:50:00* Test Item Value Reference Range Interpretation Comme nts sodium, serum (test code = 2951-2) 143 mmol/L 134-144 [facility] Hospitalurea nitrogen/creatinine ratio, fvukz5503-51-47 12:50:00 * Test Item Value Reference Range Interpretation Comme nts urea nitrogen/creatinine ratio, serum (test code = 3097-3) 8 (unknown unit) 9-23 L [facility] HospitaleGFR if Lgribnan2244-41-46 12:50:00* Test Item Value Reference Range Interpretation Comme nts eGFR if (test code = 75392-5) 129 mL/min/{1.73 m2} >59 [facility] HospitalEstimated Glomerular Filtration Rate (calc)2017-11-17 12:50:00* Test Item Value Reference Range Interpretation Comme nts Estimated Glomerular Filtration Rate (calc) (test code = 96515-0) 112 mL/min/{1.73 m2} >59 [facility] Hospitalcreatinine, adipc4330-66-14 12:50:00* Test Item Value Reference Range Interpretation Comme nts creatinine, serum (test code = 2160-0) 0.71 mg/dL 0.57-1.00 [facility] Hospitalurea nitrogen, djfoq4501-15-01 12:50:00* Test Item Value Reference Range Interpretation Comme nts urea nitrogen, blood (test c ode = 3094-0) 6 mg/dL 6-20 [facility] Hospitalblood glucose, rcfwop1211-77-63 12:50:00* Test Item Value Reference Range Interpretation Comme nts blood glucose, random (test code = 2339-0) 85 mg/dL 65-99 [facility] Hospitalimmature granulocytes, percentage of total cells, blood 2017-11-17 12:50:00* Test Item Value Reference Range Interpretation Comme nts immature granulocytes, perce ntage of total cells, blood (test code = 29805-0) 0 % [facility] Hospitalbasophil count, zzfogjcs5472-95-02 12:50:00* Test Item Value Reference Range Interpretation Comme nts basophil count, absolute (te st code = 40617-8) 0.0 x10E3/uL 0.0-0.2 [facility] HealthEosinophil Absolute Wfxyw3220-04-29 12:50:00* Test Item Value Reference Range Interpretation Comme nts Eosinophil Absolute Count (t est code = 34258-7) 0.3 X10E3/UL 0.0-0.4 [facility] Healthmonocyte count, blood, rtmrulzrj3078-87-25 12:50:00* Test Item Value Reference Range Interpretation Comme nts monocyte count, blood, autom ated (test code = 742-7) 0.4 X10E3/UL 0.1-0.9 [facility] Healthlymphocyte count, blood, evqfpoxmo5114-98-47 12:50:00* Test Item Value Reference Range Interpretation Comme nts lymphocyte count, blood, automated (test code = 731-0) 0.7 X10E3/UL 0.7-3.1 [facility] HealthAbsolute Wmgsvghcssd2387-48-32 12:50:00* Test Item Value Reference Range Interpretation Comme nts Absolute Neutrophils (test c ode = 75957-2) 2.9 X10E3/UL 1.4-7.0 [facility] Healthbasophils as percent of blood utezeuhwgy3789-50-48 12:50:00* Test Item Value Reference Range Interpretation Comme nts basophils as percent of bloo d leukocytes (test code = 707-0) 0 % [facility] Healtheosinophils as percent of blood ymygberkol6749-52-99 12:50:00* Test Item Value Reference Range Interpretation Comme nts eosinophils as percent of bl ood leukocytes (test code = 713-8) 6 % [facility] Healthmonocytes as percent of blood jnafuvaybv0527-06-91 12:50:00* Test Item Value Reference Range Interpretation Comme nts monocytes as percent of bloo d leukocytes (test code = 5905-5) 9 % [facility] Healthlymphocytes as percent of blood kbsnwqsybj7778-42-22 12:50:00* Test Item Value Reference Range Interpretation Comme nts lymphocytes as percent of bl ood leukocytes (test code = 736-9) 16 % [facility] Healthneutrophils as percent of blood trmyzayprm2632-03-59 12:50:00* Test Item Value Reference Range Interpretation Comme nts neutrophils as percent of bl ood leukocytes (test code = 770-8) 69 % [facility] Hospitalplatelet gcsqc5037-41-45 12:50:00* Test Item Value Reference Range Interpretation Comme [facility] platelet count (test code = 777-3) 213 X10E3/UL 150-379 [facility] Hospitalred blood cell distribution rmbjc1894-73-35 12:50:00* Test Item Value Reference Range Interpretation Comme [facility] red blood cell distribution width (test code = 788-0) 14.6 % 12.3-15.4 [facility] corpuscular hemoglobin concentration, ADJ3500-98-35 12:50:00* Test Item Value Reference Range Interpretation Comme [facility] mean corpuscular hemoglobin concentration, RBC (test code = 786-4) 33.1 G/DL 31.5-35.7 [facility] corpuscular hemoglobin, NQT2464-31-26 12:50:00* Test Item Value Reference Range Interpretation Comme [facility] mean corpuscular hemoglobin, RBC (test code = 785-6) 28.7 pg 26.6-33.0 [facility] corpuscular volume, JFK0015-68-42 12:50:00* Test Item Value Reference Range Interpretation Comme [facility] mean corpuscular volume, RBC (test code = 787-2) 87 fL 79-97 [facility] Hospitalhematocrit, xeqzs4344-28-90 12:50:00* Test Item Value Reference Range Interpretation Comme [facility] hematocrit, blood (test code = 4544-3) 35.3 % 34.0-46. 6 [facility] Hospitalhemoglobin, sowio0835-42-76 12:50:00* Test Item Value Reference Range Interpretation Comme [facility] hemoglobin, blood (test code = 718-7) 11.7 g/dL 11.1-15.9 [facility] Hospitalerythrocyte (RBC) udnii0525-69-75 12:50:00* Test Item Value Reference Range Interpretation Comme [facility] erythrocyte (RBC) count (iveth t code = 789-8) 4.07 X10E6/UL 3.77-5.28 [facility] Hospitalleukocyte count, gfqbw6209-52-71 12:50:00* Test Item Value Reference Range Interpretation Comme nts leukocyte count, blood (test code = 6690-2) 4.1 X10E3/UL 3.4-10.8 [facility] HealthT-helper cells (CD4) as percent of blood lymphocytes 2017-11-17 12:50:00* Test Item Value Reference Range Interpretation Comme nts T-helper cells (CD4) as perc ent of blood lymphocytes (test code = 8123-2) 3.4 % 30.8-58.5 L [facility] HealthT-helper cells (CD4) tkuvl8851-50-70 12:50:00* Test Item Value Reference Range Interpretation Comme nts T-helper cells (CD4) count ( test code = 57428-3) 24 /UL 359-1519 L [facility] Healthhepatitis A antibody, ejwxi2930-76-60 12:50:00* Test Item Value Reference Range Interpretation Comme nts hepatitis A antibody, total (test code = 97308-0) Positive Negative A [facility] Healthhepatitis B core antibody, skihg6614-35-61 12:50:00* Test Item Value Reference Range Interpretation Comme nts hepatitis B core antibody, t otal (test code = 82884-6) Negative Negative [facility] Healthhepatitis B surface dznkadb2035-07-68 12:50:00* Test Item Value Reference Range Interpretation Comme nts hepatitis B surface antigen (test code = 28907-2) Negative Negative [facility] Healthhepatitis C antibody, qsbus8853-18-21 12:50:00* Test Item Value Reference Range Interpretation Comme nts hepatitis C antibody, serum (test code = 44779-0) <0.1 0.0-0.9 [facility] HealthHIV-2 antibodies, western mhka2989-44-05 12:50:00* Test Item Value Reference Range Interpretation Comme nts HIV-2 antibodies, western bl ot (test code = 14092-1) Negative Negative [facility] HealthHIV-1/HIV-2 Ab, nwcfz8476-70-82 12:50:00* Test Item Value Reference Range Interpretation Comme nts HIV-1/HIV-2 Ab, serum (test code = 07363-6) Positive Negative A [facility] HealthHIV-CMIA (Chemiluminescent Microparticle Immuno Assay) 2017-11-17 12:50:00* Test Item Value Reference Range Interpretation Comme nts HIV-CMIA (Chemiluminescent Microparticle Immuno Assay) (test code = 44055-9) Reactive Non Reactive A [facility] Hospitalhuman leukocyte antigen N652248-88-82 12:50:00* Test Item Value Reference Range Interpretation Comme nts human leukocyte antigen B57 (test code = 187427) Negative [facility] Hospitaltoxoplasma gondii antibody, RtU2137-52-76 12:50:00* Test Item Value Reference Range Interpretation Comme nts toxoplasma gondii antibody, IgG (test code = 5389-2) <3.0 0.0-7.1 [facility] Hospitalhepatitis B surface zjxjwije6480-33-35 12:50:00* Test Item Value Reference Range Interpretation Comme nts hepatitis B surface antibody (test code = 02471-8) Non Reactive [facility] HospitalHIV-1RNA, serum, by PCR, agcsktygygvi2934-44-33 12:50:00 * Test Item Value Reference Range Interpretation Comme nts HIV-1RNA, serum, by PCR, quantitative (test code = 70543-1) 456892 /mL [facility] HospitalCD4/CD8 egqpw8921-66-59 12:50:00* Test Item Value Reference Range Interpretation Comme nts CD4/CD8 ratio (test code = 58011) 0.05 (unknown unit) 0.92-3.72 L [facility] HospitalT-suppressor cells (CD8) as percent of blood lymphocytes 2017-11-17 12:50:00* Test Item Value Reference Range Interpretation Comme nts T-suppressor cells (CD8) as percent of blood lymphocytes (test code = 3517) 70.5 % 12.0-35.5 H [facility] Hospitalabsolute UN89193-34-47 12:50:00* Test Item Value Reference Range Interpretation Comme nts absolute CD8 (test code = 29965) 494 (unknown unit) 109-897 [facility] Hospitalhepatitis A antibody, moxlm2603-53-76 12:50:00* Test Item Value Reference Range Interpretation Comme nts hepatitis A antibody, total (test code = 75) Positive Negative A [facility] Hospitalhepatitis B core antibody, hwkfb7842-23-71 12:50:00* Test Item Value Reference Range Interpretation Comme nts hepatitis B core antibody, t otal (test code = 77) Negative Negative [facility] Healthhepatitis B surface plzzsdl7505-88-84 12:50:00* Test Item Value Reference Range Interpretation Comme nts hepatitis B surface antigen (test code = 79) Negative Negative [facility] HealthHIV-2 antibodies, western ywwh0202-29-62 12:50:00* Test Item Value Reference Range Interpretation Comme nts HIV-2 antibodies, western bl ot (test code = 16536) Negative Negative [facility] HealthHIV-1/HIV-2 Ab, wriar6778-33-27 12:50:00* Test Item Value Reference Range Interpretation Comme nts HIV-1/HIV-2 Ab, serum (test code = 3399) Positive Negative A [facility] HealthHIV-CMIA (Chemiluminescent Microparticle Immuno Assay) 2017-11-17 12:50:00* Test Item Value Reference Range Interpretation Comme nts HIV-CMIA (Chemiluminescent Microparticle Immuno Assay) (test code = 198012) Reactive Non Reactive A [facility] Hospitalhuman leukocyte antigen X171524-68-87 12:50:00* Test Item Value Reference Range Interpretation Comme nts human leukocyte antigen B57 (test code = 072284) Negative [facility] Hospitaltoxoplasma gondii antibody, RzP0630-37-16 12:50:00* Test Item Value Reference Range Interpretation Comme nts toxoplasma gondii antibody, IgG (test code = 2430) <3.0 0.0-7.1 [facility] Hospitalhepatitis B surface ucpdvqjn9243-18-07 12:50:00* Test Item Value Reference Range Interpretation Comme nts hepatitis B surface antibody (test code = 78) Non Reactive [facility] HospitalHIV-1RNA, serum, by PCR, wxovgtmtqjhd9456-15-29 12:50:00 * Test Item Value Reference Range Interpretation Comme nts HIV-1RNA, serum, by PCR, quantitative (test code = 45845) 124085 /mL [facility] HospitalCD4/CD8 zrzcm3717-56-67 12:50:00* Test Item Value Reference Range Interpretation Comme nts CD4/CD8 ratio (test code = 59504) 0.05 (unknown unit) 0.92-3.72 L [facility] HospitalT-suppressor cells (CD8) as percent of blood lymphocytes 2017-11-17 12:50:00* Test Item Value Reference Range Interpretation Comme nts T-suppressor cells (CD8) as percent of blood lymphocytes (test code = 3517) 70.5 % 12.0-35.5 H [facility] Hospitalabsolute LL79960-59-51 12:50:00* Test Item Value Reference Range Interpretation Comme nts absolute CD8 (test code = 30242) 494 (unknown unit) 109-897 [facility] Notes Date/Time Note Provider Source 2023-03-15 11:17:00 [id number]/ 0aTKkMmnwfPcXlidy3W8Slt6+TCSL PpMZS3bSYlnFHEyzk3afPdWqqFP3843-71-33M17:17:02480 1-0019 [place] [address] PATIENT NAME: ADEEL DEL TORO ADMIT DATE: 03/08/23ACCOUNT NO: [id number] DISCHARGE DATE: 03/09/23MEDICAL RECORD NO: [id number] ROOM NO: [facility] REPORT TYPE: 360 - QUERY RESPONSE DOCUMENT DATE OF : [birth year] AGE: 37 SEX: F ADMITTING PHYSICIAN:Margareth Martinez MD ATTENDING PHYSICIAN:Margareth Martinez MD Provider Query QUERY TEXT: Relationship Diagnoses General 360MD Query related questions should be directed to: [facility] Coding Query Helpline Please clarify the relationship, [...] at 1117 PATIENT NAME: ADEEL DEL TORO noteE.[id number] for patient cwqaFVXHLYQRUAPBYX2777-40-82Z01:17:39 [facility] 2023-03-14 12:53:00 [id number] BkZN+wfwETeoBKRjWyOxs392GbwhT 8WxfjToKMIEn8uxxuSU2nZKtdsJ2515-92-90T43:53:26744 1-0024 [place] [address] PATIENT NAME: ADEEL DEL TORO ADMIT DATE: 03/08/23ACCOUNT NO: [id number] DISCHARGE DATE: 03/09/23MEDICAL RECORD NO: [id number] ROOM NO: E.412 REPORT TYPE: 360 - QUERY RESPONSE DOCUMENT DATE OF : [birth year] AGE: 37 SEX: F ADMITTING PHYSICIAN:Margareth Martinez MD ATTENDING PHYSICIAN:Margareth Martinez MD Provider Query QUERY TEXT: Condition General 360MD Query related questions should be directed to: [facility] Coding Query Helpline Based on your medical [...] at 1253 PATIENT NAME: ADEEL DEL TORO noteE.[id number] for patient aqxiQJWFQVFGUURGFW4503-38-07Q01:53:40 [facility] 2023-03-14 12:53:00 [id number] SRjjcHZd1r/vjl7dEYXchf680irg7 gCoGGT54S5Cix+yF4ySRqn0U1e/4732-60-26I19:53:28612 1-0025 [place] [address] PATIENT NAME: ADEEL DEL TORO ADMIT DATE: 03/08/23ACCOUNT NO: [id number] DISCHARGE DATE: 03/09/23MEDICAL RECORD NO: [id number] ROOM NO: E.412 REPORT TYPE: 360 - QUERY RESPONSE DOCUMENT DATE OF : [birth year] AGE: 37 SEX: F ADMITTING PHYSICIAN:Margareth Martinez MD ATTENDING PHYSICIAN:Margareth Martinez MD Provider Query QUERY TEXT: Condition General 360MD Query related questions should be directed to: [facility] Coding Query Helpline Based on your medical [...] at 1253 PATIENT NAME: ADEEL DEL TORO noteE.[id number] for patient qoedRWFIJHGEHMFHVW7419-56-82R24:53:40 [facility] 2023-03-09 10:21:00 [id number] 1fOY0ax6p4ZH2OHofTWkLjOMgkZDm aytp8CwusrpGyjpkVZt8P/LJpto4668-09-58S13:21:00 [facility]ospital[facility] Discharge SummaryREPORT#:[id number] REPORT STATUS: SignedREPORT INITIALIZATION DATE:03/09/23 TIME: 1021 PATIENT: ADEEL DEL TORO UNIT #: [id number]#: [id number] [address] [birth year] AGE: 37 SEX: F ATTEND: Margareth Martinez AUTHOR: Tomasa Solo MDREPT SERVICE DT/TIME: 03/09/23 [...] PAIN Qty = 30 Instructions: Jason Best: [id number] Bictegrav/Emtricit/Tenofov Ala (Biktarvy 50-200-25 MG Tablet) 50 MG-200 MG-25 MGTAB 1 TABLET ORAL DAILY. Start taking the following new medications:AMOXICILLIN/CLAV K (AUGMENTIN 875/125 MG) 875 MG-125 MG TAB 875 MILLIGRAM ORAL EVERY 12 HOURS. Qty = 14 No Refills ObjectiveVS/I OLast Documented: Result Date Time Pulse Ox 99 03/09 0832 O2 Delivery Room air 03/09 0832 B/P 115/78 03/09 07 B/P Mean 90.8 03/09 07 Temp 36.7 03/09 07 Pulse 71 03/09 0707 Resp 17 03/09 07 FiO2 21 03/08 0935 O2 Flow Rate 0 03/08 0935 ResultsFindings/Data:Laboratory Tests: 03/09 0116 Chemistry Sodium (134.0 - 147.0 mmol/l) 137 [...] (Auto) (23.0 - 38.0 %) 9.6 L Hamb[place] % (Auto) (1.0 - 10.0 %) 11.3 H Eos % (Auto) (1.0 - 5.0 %) 0.0 L Baso % (Auto) (0.0 - 1.0 %) 0.2 Neut # (Auto) (2.4 - 6.3 K/mm3) 4.2 Lymph # (Auto) (1.2 - 4.0 K/mm3) 0.5 L [place] # (Auto) (0.0 - 0.6 K/mm3) 0.6 [...] tenderness, no midline vertebral tend, no muscle spasmNeuro/SOLDERER BARREL RIBS: alert, oriented X 3, CNII-XII intactSkin: dry, [...] up timeframe: In 1-2 weeks at 10[address] [facility] #:[id number] OF REPORTDSDischarge jkaoewk3276-89-08F63:21:00E.CKLU71099503-8032QVFr ailable for patient iuxwEBVYUVFVKGQWZX4873-02-80M59:22:28 [facility] 2023-03-08 22:38:00 [id number] Hi8SfgB6VCXOBpg+eN8EwJGjUe9rI i4WSSADa68HBsL7dc6igkTyvp4A5666-23-13V08:38:05914 6-0001 [place] [id number] PATIENT NAME: ADEEL DEL TORO ADMIT DATE: 03/08/23ACCOUNT NO: [id number] DISCHARGE DATE: 03/09/23MEDICAL RECORD NO: [id number] ROOM NO: E.412 REPORT TYPE: CONSULTATION REPORT [...] home, and has not traveled anywhere outside [place]. It is to be noted that the [...] Investigations showed WBCs of 4.4, hemoglobin 10.7, kdohizhxsm03.9, and platelets of 157. Sodium 133, potassium [...] in detail in the presence of the blast furnace supervisor nurse.9. Prognosis. The patient remains guarded. Dictated By: Thania Proctor MD Date Dictated: 03/08/2023 22:38:53Date Transcribed: 03/08/2023 23:34:23TRESSA/ROCKY/Tabby #: [id number] ID: [id number] by Thania Proctor MD On 03/23/2023 09:37:25 PM at 0937 PATIENT NAME: ADEEL DEL TORO :34:00E.DE [id number] for patient iexrUSNNJQLFHPDUCU8438-82-92P98:37:57 [facility] 2023-03-08 14:09:00 [id number]+ilvklb/ p+Hz+BuX2ukT8NH3vNvA3isgm4f23 rtQlolkl7xDiPZ0nuTdWPPztwNw0361-61-83D57:09:00 [facility] ([facility])Infect Dis Consult Note_ BriefREPORT#:[id number] REPORT STATUS: SignedREPORT INITIALIZATION DATE:03/08/23 TIME: 1408 PATIENT: ADEEL DEL TORO UNIT #: [id number]#: [id number] [address] [birth year] AGE: 37 SEX: F ATTEND: Margareth Martinez [facility] AUTHOR: Thania Proctor MDREPT SERVICE DT/TIME: 03/08/23 140* ALL edits or amendments must be made on the electronic/computer document * History - Adult longitudinalAdditional medical history:HIV, AIDS PTSD, anxietyAdditional family history:HTNAlcohol use: Alcohol useDrug use: MarijuanaSmoking status for patients 13 years old or older: Current some day smokerDate last smoked: 02/28/23Years smoked: 1Pack years: 0Allergies:Coded Allergies:No Known Allergies (03/06/23) at 2133 RPT #:[id number] OF REPORTOXZluxjnzcdsiv4213-69-85S71:09:00E.PDOC2 [id number] for patient sswgXYFXQQWKNCNOEF4510-56-24X06:33:56 [facility] 13:01:00 [id number] y452v6ukgwBn/RGE08BNImQF4Ccm8 H5qiGjmv6miiir318G75AEdQ6/j0165-07-83X83:01:00 [facility] ([facility])Hospitalist Progress NoteREPORT#:[id number] REPORT STATUS: SignedREPORT INITIALIZATION DATE:03/08/23 TIME: 1301 PATIENT: ADEEL DEL TORO UNIT #: [id number]#: [id number] ROOM/BED: [facility]-1DOB: [birth year] AGE: 37 SEX: F ATTEND: Margareth [...] was unremarkable, BMP showed a sodium 131, qxvtfdaj74, BUN 5. Lactic acid was normal at [...] (Auto) (23.0 - 38.0 %) 6.3 L Hamb[place] % (Auto) (1.0 - 10.0 %) 3.2 Eos % (Auto) (1.0 - 5.0 %) 0.0 L Baso % (Auto) (0.0 - 1.0 %) 0.0 Neut # (Auto) (2.4 - 6.3 K/mm3) 4.0 Lymph # (Auto) (1.2 - 4.0 K/mm3) 0.3 L [place] # (Auto) (0.0 - 0.6 K/mm3) 0.1 [...] tenderness, no midline vertebral tend, no muscle spasmNeuro/SOLDERER BARREL RIBS: alert, oriented X 3, CNII-XII intactSkin: dry, [...] need o IV abx. at 1303 at 1146 RPT #:[id number] OF REPORTPRProgress gxpp5472-58-53D58:01:00E.SYKM68829071-6629IEHbydc able for patient uwuoJEZFQFGNEEXXYP2875-06-67M47:03:36 [facility] 2023-03-07 08:37:00 [id number]/Y W0yuhksngfXQz00bZ7vUZrYSzsyxb l0CFr7nDGgEiDDRqzvk5fOK/dmZ2913-47-10V48:37:00 [facility] ([facility])Hospitalist History PhysicalREPORT#:[id number] REPORT STATUS: SignedREPORT INITIALIZATION DATE:03/07/23 TIME: 836 PATIENT: ADEEL DEL TORO UNIT #: [id number]#: [id number] [facility]DOB: [birth year] AGE: 37 SEX: F ATTEND: Margareth Martinez AUTHOR: [employer] PAREPT SERVICE DT/TIME: 03/07/23 [...] was unremarkable, BMP showed a sodium 131, ijtqhefa93, BUN 5. Lactic acid was normal at [...] Result Date Time Pulse Ox 98 03/07 08 B/P 117/69 03/07 0821 B/P Mean 85 03/07 0821 Pulse 89 03/07 0821 Resp 18 03/07 0821 O2 Delivery Room air 03/07 06 Temp 97.7 03/07 06 24 hour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
--- NOTE | 2023-04-20 19:16 | RAD REPORT ---
EXAM DESCRIPTION: RAD - Chest Single View - 04/20/2023 7:11 pm CLINICAL HISTORY: FEVER Chest pain. COMPARISON: <Comparisons> FINDINGS: Portable technique limits examination quality. The lungs are grossly clear. The heart is normal in size. No displaced fractures. IMPRESSION: No acute intrathoracic process suspected.
[2023-04-20 19:30] LABS: Absolute Lymphocytes (CBC) 0.6 K/uL (0.7-4.9); Hematocrit 34.2 % (36.0-45.0); Lymphocytes % 7.4 % (15.3-44.8); MCV 85.6 fL (80-100); MPV 8.3 fL (7.6-11.3); Platelets 289 thou/uL (152-406); RBC Red Blood Cell Count 3.99 M/uL (3.86-4.86)
[2023-04-20 19:48] LABS: Albumin 3.2 g/dL (3.4-5.0); Bilirubin Total 0.3 mg/dL (0.2-1.0); Potassium 3.3 mEq/L (3.5-5.1); Protein, Total 7.7 g/dL (6.4-8.2)
[2023-04-20 19:52] LABS: Protime INR 1.28
[2023-04-20 20:26] LABS: Specific Gravity 1.024 (1.005-1.030); Urine Bacteria <20 /HPF (<20); Urine Bilirubin NEGATIVE (Negative); Urine Blood 1+ (Negative); Urine Clarity Extremely Turbid (Clear); Urine Color Yellow (Yellow); Urine Crystals Unidentified Few /HPF (None Seen); Urine Glucose NEGATIVE (Negative); Urine Mucus 2+ /HPF (None Seen); Urine Protein 1+ (Negative); Urine RBC 21-50 /HPF (None Seen); Urine Urobilinogen Normal (Normal); Urine WBC Clump Few /HPF (None Seen)
--- NOTE | 2023-04-20 20:36 | RAD REPORT ---
EXAM DESCRIPTION: CTAbdomen Pelvis W Contrast - 04/20/2023 8:20 pm CLINICAL HISTORY: Abdominal pain. ABD PAIN COMPARISON: Abdomen Pelvis W Contrast dated 03/20/2023 TECHNIQUE: Biphasic CT imaging of the abdomen and pelvis was performed with 100 ml non-ionic IV cont rast. All CT scans are performed using dose optimization technique as appropriate and may include automated exposure control or mA/KV adjustment according to patient size. FINDINGS: The lung bases are clear. The liver, spleen, pancreas, adrenal glands and kidneys are within normal limits. No bowel obstruction, free air, free fluid or abscess. The appendix is normal. No evidence of signi ficant lymphadenopathy. No suspicious bony findings. IMPRESSION: No acute intra-abdominal or pelvic finding.
[2023-04-20 21:04] LABS: Anisocytosis SLIGHT; Blood Morphology Comment NOTED (NOT SEEN); Platelet Estimate ADEQ; White Blood Cell Scan OK (OK)
--- NOTE | 2023-04-20 21:29 | EDPHYS ---
Physician Documentation [facility] Name: Adeel Marshall Age: 37 yrs Sex: Female : 1985 Arrival Date: 04/20/2023 Time: 18:19 Bed 18 Private MD: ED Physician Eligio Xie HPI: 04/21 00:02 This 37 yrs old Female presents to ER via EMS with complaints of Fever, Anxiety. kb 00:02 Patient is a 37-year-old female who presents for nausea, vomiting and diarrhea that kb started last night. Denies abdominal pain, cough, congestion, urinary symptoms. States that she did not know she had a fever until she got here. Reports she has a history of HIV so she wanted to come in to make sure she did not have an infection.. 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 - Social history:: Smoking status: unknown. ROS: 23:58 Respiratory: Negative for shortness of breath, cough, wheezing, and pleuritic chest kb pain, 23:58 Abdomen/GI: Positive for nausea, vomiting, and diarrhea, Negative for abdominal pain, 23:58 All other systems are negative, Exam: 21:35 Constitutional: This is a well developed, well nourished patient who is awake, alert, kb and in no acute distress. Head/Face: Normocephalic, atraumatic. ENT: Moist Mucous membranes Cardiovascular: Regular rate Respiratory: Respirations even and unlabored. No increased work of breathing. Talking in full sentences Abdomen/GI: Soft, non-tender. No distention Skin: Warm, dry with normal turgor. Normal color. MS/ Extremity: Pulses equal, no cyanosis. Neurovascular intact. Full, normal range of motion. Neuro: Awake and alert, GCS 15, oriented to person, place, time, and situation. Moves all extremities. Normal gait. 21:35 ECG was reviewed by the Attending Physician. Vital Signs: 18:21 BP 113 / 74; Pulse 110; Resp 18; Temp 101.2; Pulse Ox 100% ; bp 18:32 Weight 50.8 kg; me1 19:30 BP 109 / 79; Pulse 125; Resp 18; Pulse Ox 95% on R/A; me1 20:30 BP 100 / 71; Pulse 88; Resp 16; Pulse Ox 100% on R/A; me1 21:23 Temp 98.5(O); me1 21:48 BP 95 / 71; Pulse 86; Resp 18; Pulse Ox 100% on R/A; me1 MDM: 18:26 Patient medically screened. kb 23:58 Differential diagnosis:. Data reviewed: vital signs, nurses notes. kb 04/21 00:02 Differential diagnosis: Nonspecific abd pain, gastritis, pancreatitis, diverticulitis, kb viral gastroenteritis, UTI, flu, COVID. 00:03 Historians other than the Patient: EMS: [facility]. Counseling: I had a detailed kb discussion with the patient and/or guardian regarding the historical points, exam findings, and any diagnostic results supporting the discharge/admit diagnosis, lab results, radiology results, the need for outpatient follow up, a family practitioner, to return to the emergency department if symptoms worsen or persist or if there are any questions or concerns that arise at home. Response to treatment: the patient's symptoms have markedly improved after treatment. ED course: Patient feeling better after treatment, tolerating p.o. intake.. 04/20 18:30 Order name: Blood Culture Adult (2) kb 04/20 18:30 Order name: CBC with Diff; Complete Time: 21:05 kb 04/20 18:30 Order name: CMP; Complete Time: 19:48 kb 04/20 18:30 Order name: Lactate w/ 2H reflex if indic.; Complete Time: 19:47 kb 04/20 18:30 Order name: Protime (+inr); Complete Time: 19:54 kb 04/20 18:30 Order name: Ptt, Activated; Complete Time: 19:54 kb 04/20 18:30 Order name: Urinalysis w/ reflexes; Complete Time: 20:28 kb 04/20 18:30 Order name: Flu; Complete Time: 20:45 kb 04/20 18:30 Order name: COVID-19 SARS RT PCR; Complete Time: 20:02 kb 04/20 20:30 Order name: Urine Culture EDMS 04/20 21:05 Order name: CBC Smear Scan; Complete Time: 21:05 EDMS 04/20 18:30 Order name: Chest Single View XRAY; Complete Time: 19:19 kb 04/20 19:55 Order name: CT Abd/Pelvis - IV Contrast Only; Complete Time: 20:42 kb 04/20 18:30 Order name: Accucheck; Complete Time: 19:29 kb 04/20 18:30 Order name: Cardiac monitoring kb 04/20 18:30 Order name: EKG - Nurse/Tech kb 04/20 18:30 Order name: IV Saline Lock - Large Bore; Complete Time: 19:22 kb 04/20 18:30 Order name: Labs collected and sent; Complete Time: 19:22 kb 04/20 18:30 Order name: O2 Per Protocol; Complete Time: 19:22 kb 04/20 18:30 Order name: O2 Sat Monitoring; Complete Time: 19:22 kb 04/20 18:30 Order name: Vital Signs; Complete Time: 19:22 kb 04/20 20:02 Order name: Vital Signs; Complete Time: 20:11 kb 04/20 20:45 Order name: Vital Signs 04/20 21:06 Order name: Misc. Order: repeat temp; Complete Time: 21:23 kb EC/06 21:35 Rate is 87 beats/min. Rhythm is regular. QRS [place] is Normal. ID interval is normal at kb 126 msec. QRS interval is normal at 72 msec. QT interval is normal at 483 msec. Administered Medications: 19:29 Drug: Acetaminophen PO 1000 mg PO once Route: PO; me1 20:17 Follow up: Response: No adverse reaction me1 19:29 Drug: NS 0.9% IV (30 ml/kg) 30 ml/kg IV at bolus once; Sepsis Protocol Route: IV; Rate: me1 bolus; Site: right antecubital; 21:50 Follow up: IV Status: Completed infusion me1 21:48 Drug: Rocephin IV 1 grams IV at calculated rate once; Given slow IV push per pharmacy me1 instructions Route: IV; Rate: calculated rate; Site: right antecubital; 21:50 Follow up: IV Status: Completed infusion me1 21:50 Follow up: Response: No adverse reaction me1 Disposition Summary: 04/20/23 21:29 Discharge Ordered Notes: Location: Home kb Condition: Stable kb Diagnosis - UTI/ Urinary tract infection, site not specified kb - Nausea with vomiting, unspecified kb - Diarrhea, unspecified kb Followup: kb - With: Emergency Department - When: As needed - Reason: Worsening of condition Followup: kb - With: Private Physician - When: 2 - 3 days - Reason: Recheck today's complaints, Continuance of care, Re-evaluation by your physician Discharge Instructions: - Discharge Summary Sheet kb - Food Choices to Help Relieve Diarrhea, Adult kb - Nausea and Vomiting, Adult, Mrzg-go-Qubb kb - Urinary Tract Infection, Adult, Xhiu-qg-Zjmz kb - Diarrhea, Adult, Ucgu-bv-Fqcl kb Forms: - Medication Reconciliation Form kb - Thank You Letter kb - Antibiotic Education kb - Prescription Opioid Use kb - Patient Portal Instructions kb - Leadership Thank You Letter kb Prescriptions: - ondansetron 4 mg Oral Tablet,disintegrating - take 1 tablet ORAL route every 6 hours As needed as needed for nausea and kb vomiting; 12 tablet; Refills: 0, Product Selection Permitted - Augmentin 875-125 mg Oral Tablet - take 1 tablet ORAL route every 12 hours for 10 days; 20 tablet; Refills: 0, kb Product Selection Permitted Signatures: Dispatcher [employer] Hoda Quinones, LAP REGULATOR-C LAP REGULATOR-Guillermo Serrano, RN RN bp Amita Cristina, RN RN me1
--- NOTE | 2023-04-20 21:29 | ER ---
Nurse's Notes [facility] Name: Adeel Marshall Age: 37 yrs Sex: Female : 1985 Arrival Date: 04/20/2023 Time: 18:19 Bed 18 Private MD: Diagnosis: UTI/ Urinary tract infection, site not specified;Nausea with vomiting, unspecified;Diarrhea, unspecified Presentation: 04/20 18:21 Chief complaint: EMS states: ANXIETY OVER CHRONIC HIV AND RECENT N/V/D. Coronavirus bp screen: At this time, the client does not indicate any symptoms associated with coronavirus-19. Ebola Screen: No symptoms or risks identified at this time. Initial Sepsis Screen: Does the patient meet any 2 criteria? Temp <36.0*C (96.8*F)) or > 38.3*C (100.9*F). HR > 90 bpm. Does the patient have a suspected source of infection? No. Patient's initial sepsis screen is negative. Risk Assessment: Do you want to hurt yourself or someone else? Patient reports no desire to harm self or others. Onset of symptoms is unknown. 18:21 Method Of Arrival: EMS: [facility] bp 18:21 Acuity: MISHA 3 bp Triage Assessment: 18:22 General: Appears in no apparent distress. Behavior is appropriate for age, anxious. bp Pain: Denies pain. 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 - Social history:: Smoking status: unknown. Screenin:30 [facility] ED Fall Risk Assessment (Adult) History of falling in the last 3 months, me1 including since admission No falls in past 3 months (0 pts) Confusion or Disorientation No (0 pts) Intoxicated or Sedated No (0 pts) Impaired Gait No (0 pts) Mobility Assist Device Used No (0 pt) Altered Elimination No (0 pt) Score/Fall Risk Level 0 - 2 = Low Risk Maintained a safe environment, Provided non-skid footwear, Hourly rounding (assess needs \T\ fall precautionary measures) done. Abuse screen: Denies threats or abuse. Nutritional screening: No deficits noted. Tuberculosis screening: No symptoms or risk factors identified. Assessment: 18:30 General: Appears ill, slender, well groomed, well developed, well nourished, Behavior me1 is calm, cooperative, appropriate for age, Reports anxiety over HIV. Vomiting and diarrhea that started at 3 am today. Pain: Denies pain. Neuro: Level of Consciousness is awake, alert, obeys commands, Oriented to person, place, time, situation, Appropriate for age. Neuro: Reports. Cardiovascular: Cardiovascular: Capillary refill < 3 seconds Patient's skin is warm and dry. Respiratory: Airway is patent Trachea midline Respiratory effort is even, unlabored, Respiratory pattern is regular, symmetrical. GI: Reports diarrhea, nausea, vomiting, since 3 am today. Vital Signs: 18:21 BP 113 / 74; Pulse 110; Resp 18; Temp 101.2; Pulse Ox 100% ; bp 18:32 Weight 50.8 kg; me1 19:30 BP 109 / 79; Pulse 125; Resp 18; Pulse Ox 95% on R/A; me1 20:30 BP 100 / 71; Pulse 88; Resp 16; Pulse Ox 100% on R/A; me1 21:23 Temp 98.5(O); me1 21:48 BP 95 / 71; Pulse 86; Resp 18; Pulse Ox 100% on R/A; me1 ED Course: 18:21 Patient arrived in ED. bp 18:22 Triage completed. bp 18:22 Arm band placed on. bp 18:26 Hoda Mckeon FNP-C is PHCP. kb 18:26 Eligio Xie MD is Attending Physician. kb 18:28 Amita Cristina, LACY is Primary Nurse. me1 18:30 Patient has correct armband on for positive identification. Bed in low position. Call me1 light in reach. Side rails up X2. Provided Education on: POC. Verbalized understanding. . 18:30 No provider procedures requiring assistance completed. me1 19:13 Chest Single View XRAY In Process Unspecified. EDMS 19:22 Inserted saline lock: 22 gauge in right antecubital area, using aseptic technique. me1 19:22 Protime (+inr) Sent. me1 19:22 CMP Sent. me1 19:22 CBC with Diff Sent. me1 19:22 Lactate w/ 2H reflex if indic. Sent. me1 19:22 Ptt, Activated Sent. me1 19:23 Flu Sent. me1 19:23 COVID-19 SARS RT PCR Sent. me1 19:29 Blood Culture Adult (2) Sent. me1 20:10 Urinalysis w/ reflexes Sent. me1 20:22 CT Abd/Pelvis - IV Contrast Only In Process Unspecified. EDMS 21:48 Urine Culture Sent. me1 21:50 IV discontinued, intact, bleeding controlled, No redness/swelling at site. Pressure me1 dressing applied. Administered Medications: 19:29 Drug: Acetaminophen PO 1000 mg PO once Route: PO; me1 20:17 Follow up: Response: No adverse reaction me1 19:29 Drug: NS 0.9% IV (30 ml/kg) 30 ml/kg IV at bolus once; Sepsis Protocol Route: IV; Rate: me1 bolus; Site: right antecubital; 21:50 Follow up: IV Status: Completed infusion me1 21:48 Drug: Rocephin IV 1 grams IV at calculated rate once; Given slow IV push per pharmacy me1 instructions Route: IV; Rate: calculated rate; Site: right antecubital; 21:50 Follow up: IV Status: Completed infusion me1 21:50 Follow up: Response: No adverse reaction me1 Medication: 18:30 VIS not applicable for this client. me1 Outcome: 21:29 Discharge ordered by MD. nunez 21:49 Discharged to home ambulatory, me1 21:49 Condition: stable 21:49 Discharge instructions given to patient, Instructed on discharge instructions, follow up and referral plans. medication usage, Demonstrated understanding of instructions, follow-up care, medications, Prescriptions given X 2, 21:50 Patient left the ED. me1 Signatures: Dispatcher [employer] EDMS Hoda Mckeon, CLEAT MAKER-C CLEAT MAKER-Guillermo Serrano, RN RN Amita Cristina, LACY RN me1
--- NOTE | 2023-04-21 16:40 | EKG ---
Test Date: 2023-04-20 Test Time: 21:08:50 Digital Account Manager: TENZIN MEASUREMENT RESULTS: Intervals: Rate: 87 CO: 126 QRSD: 72 QT: 402 QTc: 483 Brutus: P: 63 CO: 126 QRS: 70 T: 65 INTERPRETIVE STATEMENTS: Normal sinus rhythm Normal ECG Compared to ECG 03/20/2023 07:34:41 T-wave abnormality no longer present Electronically Signed On 04-21-23 16:39:21 PROFESSOR OF VIOLIN by Agapito Allen
== END ==
LOC: ER 18:19
DX: N39.0 Urinary tract infection, site not specified (principal); R19.7 Diarrhea, unspecified; Z11.52 Encounter for screening for COVID-19; Z21 Asymptomatic human immunodeficiency virus [HIV] infection status
CPT/HCPCS: 87040 ×2; 87088; 85025; 81001; 87086; 36415; 85610; 83605; 85730; 80053; 87635; 87804 ×2; 74177; 71045; Q9967; J7030; J0696; 93005